=== PATIENT | male | born 1995 | race Caucasian/White ===

== ENCOUNTER 2017-06-08 13:50 | Emergency (ER) | payer OTHER ==
[~2017-06-08] VITALS: Ht 175.3 cm; Wt 78.0 kg
[2017-06-08 13:57] VITALS: BP 147/75; PULSE 88; RESP 20; TEMP 98.4
[2017-06-08] MEDS ORDERED: SODIUM CHLORIDE 0.9% FLUSH 10 ML FLUSH IVF PRN (14:15)
[2017-06-08] MEDS ORDERED: SODIUM CHLOR 0.9% 1000 ML INJ 1,000 ML IV ONE ×2 (14:15→15:30)
--- NOTE | 2017-06-08 14:39 | RADRPT ---
EXAM DATE/TIME: 06/08/2017 14:02 [facility] COMPARISON: No previous studies available for comparison. INDICATIONS : Shortness of breath and dizziness. Possible seizure. MEDICAL HISTORY : None. SURGICAL HISTORY : None. ENCOUNTER: Initial ACUITY: 1 day PAIN SCORE: 0/10 LOCATION: Bilateral chest FINDINGS: Subtle right upper lobe patchy opacities. Cardiomediastinal contours are within normal limits. Bony t horax is intact. CONCLUSION: 1. Subtle right upper lobe patchy opacities which may be projectional. Consider formal PA and lateral views of the chest if there is continued clinical uncertainty. Michael Holloway MD on June 08, 2017 at 14:35 Board Certified Radiologist. This report was verified electronically.
[2017-06-08 15:03] LABS: AUTOMATED NEUTROPHIL # 9.7 TH/MM3 (1.8-7.7); BASOPHIL % 0.1 % (0.0-2.0); EOSINOPHIL % 0.2 % (0.0-4.0); HEMATOCRIT 46.2 % (39.0-51.0); HEMOGLOBIN 15.3 GM/DL (13.0-17.0); LYMPH % 15.7 % (9.0-44.0); MEAN CELL VOLUME 88.1 FL (80.0-100.0); MEAN CORPUSCULAR HEMOGLOBIN 29.2 PG (27.0-34.0); MEAN CORPUSCULAR HGB CONC 33.2 % (32.0-36.0); MEAN PLATELET VOLUME 9.4 FL (7.0-11.0); MONO % 6.8 % (0.0-8.0); MONOCYTE # 0.9 TH/MM3 (0-0.9); NEUT % 77.2 % (16.0-70.0); PLATELET COUNT 260 TH/MM3 (150-450); RED BLOOD COUNT 5.24 MIL/MM3 (4.50-5.90); RED CELL DISTRIBUTION WIDTH 13.7 % (11.6-17.2); WHITE BLOOD COUNT 12.6 TH/MM3 (4.0-11.0)
--- NOTE | 2017-06-08 15:15 | RADRPT ---
EXAM DATE/TIME: 06/08/2017 14:06 [facility] COMPARISON: No previous studies available for comparison. INDICATIONS : Syncope,seizures RADIATION DOSE: 56.35 CTDIvol (mGy) MEDICAL HISTORY : None SURGICAL HISTORY : None. ENCOUNTER: Initial ACUITY: 1 day PAIN SCALE: 3/10 LOCATION: cranial TECHNIQUE: Multiple contiguous axial images were obtained of the head. Using automated exposure control and adj ustment of the mA and/or kV according to patient size, radiation dose was kept as low as reasonably a chievable to obtain optimal diagnostic quality images. DICOM format image data is available electro nically for review and comparison. FINDINGS: CEREBRUM: The ventricles are normal for age. No evidence of midline shift, mass lesion, hemorrhage or acute in farction. No extra-axial fluid collections are seen. POSTERIOR FOSSA: The cerebellum and brainstem are intact. The 4th ventricle is midline. The cerebellopontine angle i s unremarkable. EXTRACRANIAL: The visualized portion of the orbits is intact. SKULL: The calvaria is intact. No evidence of skull fracture. CONCLUSION: Negative noncontrast CT brain. Polo Gooden MD on June 08, 2017 at 15:13 Board Certified Radiologist. This report was verified electronically.
[2017-06-08 15:22] LABS: ALBUMIN 4.2 GM/DL (3.4-5.0); AST (GOT) 23 U/L (15-37); BICARBONATE 19.3 MEQ/L (21.0-32.0); BLOOD UREA NITROGEN 15 MG/DL (7-18); CALCIUM 8.6 MG/DL (8.5-10.1); CHLORIDE 101 MEQ/L (98-107); CREATININE 1.37 MG/DL (0.60-1.30); GLOMERULAR FILTRATION RATE 65 ML/MIN (>89); GLUCOSE,RANDOM 121 MG/DL (74-106); SODIUM (NA) 137 MEQ/L (136-145)
[2017-06-08 15:27] LABS: ALKALINE PHOSPHATASE 84 U/L (45-117); ALT (GPT) 30 U/L (12-78); TOTAL BILIRUBIN ADULT 0.4 MG/DL (0.2-1.0); TROPONIN I LESS THAN 0.02 NG/ML (0.02-0.05)
--- NOTE | 2017-06-08 15:52 | PD ---
HPI Chief Complaint: Syncope/Near-Syncope Time Seen by Provider: 13:56 Travel History International Travel<30 days: No Contact w/Intl Traveler<30days: No Traveled to known affect area: No History of Present Illness HPI PATIENT HAD EPISODE WHERE HE FELL DOWN AND PER WITNESSES HAD TONIC CLONIC TYPE OF ACTIVITY, POST ICTAL PHASE AFTERWARDS...EMS TRANSPORTED [facility] Past Medical History Diminished Hearing: No Neurologic: Yes (PT STATES THAT HE HAS HAD 1 SEIZURE IN PAST) Tetanus Vaccination: Never Vaccinated Influenza Vaccination: No Past Surgical History Surgical History: No Previous Surgery Social History Alcohol Use: Yes (OCCASIONAL) Tobacco Use: No Substance Use: Yes (thc) Allergies-Medications (Allergen,Severity, Reaction): Coded Allergies: No Known Allergies (Unverified , 06/08/17) Reported Meds & Prescriptions Reported Meds & Active Scripts Active No Active Prescriptions or Reported Medications Review of Systems Except as stated in HPI: all other systems reviewed are Neg General / Constitutional: No: Fever Eyes: No: Visual changes HENT: No: Headaches Cardiovascular: Positive: Syncope Respiratory: No: Shortness of Breath Gastrointestinal: No: Abdominal Pain Genitourinary: No: Dysuria Musculoskeletal: No: Pain Skin: Positive Other (ABRASIOIN TO FACE) Neurologic: No: Weakness Psychiatric: No: Depression Endocrine: No: Polydipsia Hematologic/Lymphatic: No: Easy Bruising Physical Exam Narrative GENERAL: SKIN: Warm and dry. HEAD: NO DEPRESSION/CREPITUS PALPATED, NO HEMOTYMPANUN NOTED. PATIENT DID HAVE TONGUE BITE HANKINS AND ABRASION TO CHIN AREA. EYES: Pupils equal and round. No scleral icterus. No injection or drainage. ENT: No nasal bleeding or discharge. Mucous membranes pink and moist. NECK: Trachea midline. No JVD. CARDIOVASCULAR: Regular rate and rhythm. RESPIRATORY: No accessory muscle use. Clear to auscultation. Breath sounds equal bilaterally. GASTROINTESTINAL: Abdomen soft, non-tender, nondistended. MUSCULOSKELETAL: Extremities without clubbing, cyanosis, or edema. No obvious deformities. NEUROLOGICAL: Awake and alert. No obvious cranial nerve deficits. Motor grossly within normal limits. Five out of 5 muscle strength in the arms and legs. Normal speech. PSYCHIATRIC: Appropriate mood and affect; insight and judgment normal. Data Data Last Documented VS Vital Signs Date Time Temp Pulse Resp B/P (MAP) Pulse Ox O2 Delivery O2 Flow Rate FiO2 06/08/17 14:02 Room Air 06/08/17 13:57 98.4 88 20 147/75 (99) Orders Orders Ecg Monitoring (06/08/17 14:01) Electrocardiogram (06/08/17 ) Electrocardiogram (06/08/17 14:01) Complete Blood Count With Diff (06/08/17 14:01) Comprehensive Metabolic Panel (06/08/17 14:01) Troponin I (06/08/17 14:01) Chest, Single Ap (06/08/17 14:01) Ct Brain W/O Iv Contrast(Rout) (06/08/17 14:01) Iv Access Insert/Monitor (06/08/17 14:01) Oximetry (06/08/17 14:01) Sodium Chloride 0.9% Flush (Ns Flush) (06/08/17 14:15) Sodium Chlor 0.9% 1000 Ml Inj (Ns 1000 M (06/08/17 14:15) Sodium Chlor 0.9% 1000 Ml Inj (Ns 1000 M (06/08/17 15:30) Labs Laboratory Tests Test 06/08/17 14:15 White Blood Count 12.6 TH/MM3 Red Blood Count 5.24 MIL/MM3 Hemoglobin 15.3 GM/DL Hematocrit 46.2 % Mean Corpuscular Volume 88.1 FL Mean Corpuscular Hemoglobin 29.2 PG Mean Corpuscular Hemoglobin Concent 33.2 % Red Cell Distribution Width 13.7 % Platelet Count 260 TH/MM3 Mean Platelet Volume 9.4 FL Neutrophils (%) (Auto) 77.2 % Lymphocytes (%) (Auto) 15.7 % Monocytes (%) (Auto) 6.8 % Eosinophils (%) (Auto) 0.2 % Basophils (%) (Auto) 0.1 % Neutrophils # (Auto) 9.7 TH/MM3 Lymphocytes # (Auto) 2.0 TH/MM3 Monocytes # (Auto) 0.9 TH/MM3 Eosinophils # (Auto) 0.0 TH/MM3 Basophils # (Auto) 0.0 TH/MM3 CBC Comment DIFF FINAL Differential Comment Blood Urea Nitrogen 15 MG/DL Creatinine 1.37 MG/DL Random Glucose 121 MG/DL Total Protein 8.0 GM/DL Albumin 4.2 GM/DL Calcium Level 8.6 MG/DL Alkaline Phosphatase 84 U/L Aspartate Amino Transf (AST/SGOT) 23 U/L Alanine Aminotransferase (ALT/SGPT) 30 U/L Total Bilirubin 0.4 MG/DL Sodium Level 137 MEQ/L Potassium Level 3.3 MEQ/L Chloride Level 101 MEQ/L Carbon Dioxide Level 19.3 MEQ/L Anion Gap 17 MEQ/L Estimat Glomerular Filtration Rate 65 ML/MIN Troponin I LESS THAN 0.02 NG/ML MDM Medical Decision Making Medical Screen Exam Complete: Yes Emergency Medical Condition: Yes Medical Record Reviewed: Yes Differential Diagnosis SYNCOPE V SEIZURE V ELECTROLYTE ABNL Narrative Course CT HEAD NEG ICH/SKULL FX, LABS C/W SEIZURE ACTIVITY PARTICULARLY MILDLY DECREASED BICARB LEVEL Diagnosis Primary Impression: S/P SEIZURE (NEW ONSET) Referrals: Shahida Jeter MD FOR FURTHER NEUROLOGICAL EVALUATION Scripts No Active Prescriptions or Reported Meds Disposition: DISCHARGE HOME Condition: Stable Lew Mccray MD Jun 08, 2017 15:51
[2017-06-08 15:56] VITALS: BP 127/72; PULSE 84; RESP 18
--- NOTE | 2017-06-09 14:43 | EKG ---
Date Performed: 06/08/2017 Time Performed: 14:04:54 PTAGE: 21 years EKG: Sinus rhythm POSSIBLE LEFT ATRIAL ENLARGEMENT POSSIBLE RIGHT VENTRICULAR CONDUCTION DELAY POSSIBLE LEFT VENTRICUL AR HYPERTROPHY ABNORMAL ECG NO PREVIOUS TRACING DOCTOR: Saima Luna Interpretating Date/Time 06/09/2017 14:42:52
== END 2017-06-08 17:19 | disposition home or self-care (01) ==
LOC: NEPE 13:50
DX: R56.9 Unspecified convulsions (principal); R55 Syncope and collapse; R94.31 Abnormal electrocardiogram [ECG] [EKG]
CPT/HCPCS: 70450; 71010; 80053; 84484; 85025; 93005; 96360; 96361; 99285; J7030

== ENCOUNTER 2017-06-08 22:09 | Inpatient (IN) | payer OTHER ==
[~2017-06-08] VITALS: Ht 175.3 cm; Wt 69.0 kg
[2017-06-08] VITALS (11 sets, daily range): BP systolic 124–210; BP diastolic 53–120; PULSE 96–128; RESP 18; O2SAT 80–100
[2017-06-08] MEDS: PROPOFOL 1000 MG/100 ML INJ 100 ML IV PRN (22:26)
[2017-06-08] MEDS ORDERED: SODIUM CHLOR 0.9% 1000 ML INJ 1,000 ML IV SCH (22:27)
[2017-06-08] MEDS ORDERED: SODIUM CHLORIDE 0.9% FLUSH 5 ML FLUSH IV FLUSH PRN (22:30)
[2017-06-08] MEDS ORDERED: PROPOFOL 200 MG/20 ML AMP IV ONE ×2 (22:30→23:15)
[2017-06-08] MEDS ORDERED: PROPOFOL 1000 MG/100 ML INJ 100 ML IV PRN (22:30)
[2017-06-08] MEDS ORDERED: ETOMIDATE 20 MG/10 ML VIAL IV PUSH ONE (22:30)
[2017-06-08] MEDS ORDERED: VECURONIUM BROMIDE 10 MG VIAL IV PUSH ONE (22:30)
[2017-06-08] MEDS ORDERED: SUCCINYLCHOLINE CHLORIDE 100 MG/5 ML SYRINGE IV PUSH ONE (22:30)
--- NOTE | 2017-06-08 22:51 | RADRPT ---
EXAM DATE/TIME: 06/08/2017 22:24 [facility] COMPARISON: CHEST SINGLE AP, June 08, 2017, 14:02. INDICATIONS : Post intubation. OG tube placement. MEDICAL HISTORY : Unobtainble. SURGICAL HISTORY : Unobtainble. ENCOUNTER: Initial ACUITY: 1 day PAIN SCORE: Non-responsive. LOCATION: Bilateral chest FINDINGS: Endotracheal tube tip is present about 7 cm above the akira. Nasogastric tube descends into the stom ach. Suprahilar and upper lobe airspace disease is present bilaterally. Cardiac contours are grossly stable area no definite effusion. CONCLUSION: Worsening bilateral upper lung zone infiltrates. ET tube could be advanced slightly. Lonnie Almazan MD on June 08, 2017 at 22:49 Board Certified Radiologist. This report was verified electronically.
[2017-06-08] MEDS ORDERED: MIDAZOLAM HCL 5 MG/ML VIAL (1 ML) ONE ×2 (23:01→23:13)
[2017-06-08 23:06] LABS: AUTOMATED NEUTROPHIL # 13.7 TH/MM3 (1.8-7.7); BASOPHIL % 0.1 % (0.0-2.0); EOSINOPHIL % 0.1 % (0.0-4.0); HEMATOCRIT 42.7 % (39.0-51.0); HEMOGLOBIN 14.4 GM/DL (13.0-17.0); LYMPH % 10.4 % (9.0-44.0); LYMPHOCYTE # 1.7 TH/MM3 (1.0-4.8); MEAN CELL VOLUME 87.7 FL (80.0-100.0); MEAN CORPUSCULAR HEMOGLOBIN 29.5 PG (27.0-34.0); MEAN CORPUSCULAR HGB CONC 33.7 % (32.0-36.0); MEAN PLATELET VOLUME 9.5 FL (7.0-11.0); MONO % 6.2 % (0.0-8.0); NEUT % 83.2 % (16.0-70.0); PLATELET COUNT 236 TH/MM3 (150-450); RED BLOOD COUNT 4.87 MIL/MM3 (4.50-5.90); RED CELL DISTRIBUTION WIDTH 13.4 % (11.6-17.2); WHITE BLOOD COUNT 16.4 TH/MM3 (4.0-11.0)
[2017-06-08] MEDS ORDERED: levETIRAcetam INJ 1,000 MG in SODIUM CHLORIDE 0.9% INJ 100 ML IV ONE (23:15)
[2017-06-08] MEDS ORDERED: MIDAZOLAM HCL 2 MG/2 ML VIAL IV PUSH ONE (23:15)
[2017-06-08 23:17] LABS: PROTHROMBIN TIME - PATIENT 11.3 SEC (9.8-11.6)
--- NOTE | 2017-06-08 23:22 | HHI.HP ---
HPI Service Critical Care Medicine Primary Care Physician Unknown Admission Diagnosis Diagnosis: Travel History International Travel<30 Days: No Contact w/Intl Traveler <30 Da: No Traveled to Known Affected Are: No History of Present Illness 21-year-old presents by EMS from home. Patient was seen in the emergency room a few hours ago for seizure. Apparently does not have history of seizure even though after further conversation with the patient's mother he had episode of seizures a year ago when he was experimenting with alprazolam as a recreational supplement. He had a workup done and was discharged home. Per family when he got home after discharge he was complaining of chest congestion and shortness of breath that was progressively getting worse. His girlfriend who was with him noticed that he had another episode of seizure that lasted for 3 minutes. She called EMS. As per paramedics when they arrived he was confused and postictal. They took him into the ambulance and he started vomiting blood ? . however NG tube placed in the ED didn't reveal any blood or coffee-ground content in the stomach. Patient was slightly tachycardic but blood pressure stable. They said his GCS was 15 on route. When patient arrived to the ER he was confused and GCS was 14. He was hemodynamically stable. His oxygen saturation was 80% on nonrebreather. As per EMS they noticed that his oxygen saturation was in mid 70s on room air when they first put him on a monitor. As I was talking to the paramedics patient started to cough up blood. He was intubated for progressively worsening respiratory distress and hypoxemia by ED attending. Review of Systems ROS Unobtainable patient is sedated and intubated Past Family Social History Allergies: Coded Allergies: No Known Allergies (Unverified , 06/08/17) Past Medical History No significant past medical history 1 episode of seizure a year ago Past Surgical History None Reported Medications Reported Meds & Active Scripts Active No Active Prescriptions or Reported Medications Active Ordered Medications Current Medications Medications (Trade) Dose Ordered Sig/Bebe Route PRN Reason Start Time Stop Time Status Last Admin Dose Admin Piperacillin Sod/ Tazobactam Sod 100 ml @ 200 mls/hr Q6H IV 06/09/17 00:00 06/08/17 23:52 Azithromycin 500 mg/Sodium Chloride 250 ml @ 250 mls/hr Q24H IV 06/09/17 01:00 06/09/17 00:16 Sodium Chloride 1,000 ml @ 125 mls/hr Q8H IV 06/08/17 23:25 Sodium Chloride (NS Flush) 2 ml UNSCH PRN IV FLUSH FLUSH AFTER USING IV ACCESS 06/08/17 23:30 Sodium Chloride (NS Flush) 2 ml BID IV FLUSH 06/09/17 09:00 Acetaminophen (Tylenol) 650 mg Q6H PRN PO PAIN 1-5 AND/OR FEVER >101F 06/08/17 23:30 Morphine Sulfate (Morphine Inj) 2 mg Q2H PRN IV PUSH PAIN SCALE 6 TO 10 06/08/17 23:30 Pantoprazole Sodium (Protonix Inj) 40 mg DAILY IV PUSH 06/09/17 09:00 Lorazepam (Ativan Inj) 1 mg Q1H PRN IV PUSH Agitation/Sedation 06/08/17 23:30 Ondansetron HCl (Zofran Inj) 4 mg Q6H PRN IV PUSH NAUSEA OR VOMITING 06/08/17 23:30 Albuterol/ Ipratropium (Duoneb Neb) 1 ampule Q6HR NEB INH 06/09/17 04:00 Albuterol/ Ipratropium (Duoneb Neb) 1 ampule Q2HR NEB PRN INH WHEEZING 06/08/17 23:30 Miscellaneous Information 1 Q361D XX 06/08/17 23:30 Chlorhexidine Gluconate (Chlorhexidine 2% Cloth) 3 pack Taper DAILY@04 TOP 06/09/17 04:00 06/05/18 03:59 Chlorhexidine Gluconate (Chlorhexidine 2% Cloth) 3 pack UNSCH PRN TOP HYGIENIC CARE 06/08/17 23:30 Senna/Docusate Sodium (Stephanie-Colace) 1 tab BID PO 06/09/17 09:00 Magnesium Hydroxide (Milk Of Magnesia Liq) 30 ml Q12H PRN PO Mild constipation 06/08/17 23:30 Sennosides (Senokot) 17.2 mg Q12H PRN PO Moderate constipation 06/08/17 23:30 Bisacodyl (Dulcolax Supp) 10 mg DAILY PRN RECTAL SEVERE CONSITIPATION 06/08/17 23:30 Lactulose (Lactulose Liq) 30 ml DAILY PRN PO SEVERE CONSITIPATION 06/08/17 23:30 Chlorhexidine Gluconate (Peridex 0.12% Liq) 15 ml BID@08,20 MT 06/09/17 08:00 Propofol 100 ml @ 2.4 mls/hr TITRATE PRN IV SEDATION 06/08/17 23:30 06/08/17 22:26 Midazolam HCl 100 ml @ 2 mls/hr TITRATE PRN IV SEDATION 06/08/17 23:30 Fentanyl Citrate 250 ml @ 5 mls/hr TITRATE PRN IV SEDATION 06/08/17 23:30 Levetriacetam 500 mg/Sodium Chloride 105 ml @ 420 mls/hr Q12HR IV 06/09/17 09:00 Family History No family history significant of seizure disorder Social History Doesn't smoke Drinks alcohol rarely on weekends Smokes marijuana occasionally No history of illicit drug abuse Physical Exam Vital Signs Vital Signs Date Time Temp Pulse Resp B/P (MAP) Pulse Ox O2 Delivery O2 Flow Rate FiO2 06/08/17 22:37 100 Ventilator 100 06/08/17 22:20 100 100 06/08/17 22:17 111 18 167/90 (115) 99 15.00 06/08/17 22:13 108 18 167/90 (115) 80 Physical Exam GENERAL: Well-nourished, well-developed patient. Sedated and intubated. SKIN: Warm and dry. HEAD: Normocephalic. EYES: No scleral icterus. No injection or drainage. NECK: Supple, trachea midline. No JVD or lymphadenopathy. CARDIOVASCULAR: Regular rate and rhythm without murmurs, gallops, or rubs. RESPIRATORY: Breath sounds equal bilaterally. No accessory muscle use. GASTROINTESTINAL: Abdomen soft, non-tender, nondistended. MUSCULOSKELETAL: No cyanosis, or edema. BACK: Nontender without obvious deformity. NEURO EXAM: Mental Status: The patient is sedated and intubated Cranial Nerves: Pupils are round, reactive to light. Reflexes: Biceps, patellar, and Achilles are 2/4 bilaterally. No clonus. Laboratory Laboratory Tests Test 06/08/17 22:40 06/08/17 22:41 06/08/17 22:48 06/08/17 23:10 White Blood Count 16.4 Red Blood Count 4.87 Hemoglobin 14.4 Hematocrit 42.7 Mean Corpuscular Volume 87.7 Mean Corpuscular Hemoglobin 29.5 Mean Corpuscular Hemoglobin Concent 33.7 Red Cell Distribution Width 13.4 Platelet Count 236 Mean Platelet Volume 9.5 Neutrophils (%) (Auto) 83.2 Lymphocytes (%) (Auto) 10.4 Monocytes (%) (Auto) 6.2 Eosinophils (%) (Auto) 0.1 Basophils (%) (Auto) 0.1 Neutrophils # (Auto) 13.7 Lymphocytes # (Auto) 1.7 Monocytes # (Auto) 1.0 Eosinophils # (Auto) 0.0 Basophils # (Auto) 0.0 CBC Comment DIFF FINAL Differential Comment Prothrombin Time 11.3 Prothromb Time International Ratio 1.0 Activated Partial Thromboplast Time 26.6 Ammonia 21 Blood Gas Puncture Site RT RADIAL Blood Gas Patient Temperature 98.6 Blood Gas HCO3 20 Blood Gas Base Excess -4.6 Blood Gas Oxygen Saturation 98 Arterial Blood pH 7.38 Arterial Blood Partial Pressure CO2 35 Arterial Blood Partial Pressure O2 271 Arterial Blood Oxygen Content 20.1 Arterial Blood Carboxyhemoglobin 0.7 Arterial Blood Methemoglobin 0.8 Blood Gas Hemoglobin 14.1 Oxygen Delivery Device VENTILATOR Blood Gas Ventilator Setting VAC/20/550/PEEP+10 Blood Gas Inspired Oxygen 100 Date/Time Source Procedure Growth Status 06/08/17 23:10 Blood Peripheral Aerobic Blood Culture Pending Received 06/08/17 23:10 Blood Peripheral Anaerobic Blood Culture Pending Received Result Diagram: 06/08/170 Imaging Last [address] 06/08/172226 Signed Impressions: Service Date/Time: Thursday, June 08, 2017 23:25 - CONCLUSION: Normal examination. Loki Pitts MD Caprini VTE Risk Assessment Caprini VTE Risk Assessment: No/Low Risk (score <= 1) Caprini Risk Assessment Model Point Value = 1 Point Value = 2 Point Value = 3 Point Value = 5 Age 41-60 Minor surgery BMI > 25 kg/m2 Swollen legs Varicose veins or History of unexplained or recurrent spontaneous Oral contraceptives or hormone replacement Sepsis (< 1 month) Serious lung disease, including pneumonia (< 1 month) Abnormal pulmonary function Acute myocardial infarction Congestive heart failure (< 1 month) History of inflammatory bowel disease Medical patient at bed rest Age 61-74 Arthroscopic surgery Major open surgery (> 45 min) Laparoscopic surgery (> 45 min) Malignancy Confined to bed (> 72 hours) Immobilizing plaster cast Central venous access Age >= 75 History of VTE Family history of VTE Factor V Leiden Prothrombin [id number] Lupus anticoagulant Anticardiolipin antibodies Elevated serum homocysteine Heparin-induced thrombocytopenia Other congenital or acquired thrombophilia Stroke (< 1 month) Elective arthroplasty Hip, pelvis, or leg fracture Acute spinal cord injury (< 1 month) Prophylaxis Regimen Total Risk Factor Score Risk Level Prophylaxis Regimen 0-1 Low Early ambulation 2 Moderate Order ONE of the following: *Sequential Compression Device (SCD) *Heparin 5000 units SQ BID 3-4 Higher Order ONE of the following medications: *Heparin 5000 units SQ TID *Enoxaparin/Lovenox 40 mg SQ daily (WT < 150 kg, CrCl > 30 mL/min) *Enoxaparin/Lovenox 30 mg SQ daily (WT < 150 kg, CrCl > 10-29 mL/min) *Enoxaparin/Lovenox 30 mg SQ BID (WT < 150 kg, CrCl > 30 mL/min) AND/OR *Sequential Compression Device (SCD) 5 or more Highest Order ONE of the following medications: *Heparin 5000 units SQ TID (Preferred with Epidurals) *Enoxaparin/Lovenox 40 mg SQ daily (WT < 150 kg, CrCl > 30 mL/min) *Enoxaparin/Lovenox 30 mg SQ daily (WT < 150 kg, CrCl > 10-29 mL/min) *Enoxaparin/Lovenox 30 mg SQ BID (WT < 150 kg, CrCl > 30 mL/min) AND *Sequential Compression Device (SCD) Assessment and Plan Assessment and Plan Respiratory failure - Noncardiogenic pulmonary edema - Acute lung injury - Supportive care with mechanical ventilation - 2-D echo to rule out cardiogenic origin - Empiric antibiotics - Bronchoscopy and follow-up culture results Seizure disorder - Loaded with Keppra in the ED - Continue Keppra twice a day - EEG Elevated CPK - Post seizure - IV hydration - Monitor trend Acute kidney injury - Dehydration - IV fluids resuscitation - Strict I's and O's - Monitor electrolytes and creatinine DVT GI prophylaxis - Teds SCDs - No pharmacological DVT prophylaxis due to questionable hematemesis versus hemoptysis - Protonix Critical Care: The total critical care time was 35 minutes. Time to perform other separately billable procedures was not included in the critical care time. Roger Haynes MD Jun 08, 2017 23:22
[2017-06-08 23:24] LABS: BILIRUBIN, URINE NEG (NEG); BLOOD, URINE NEG (NEG); GLUCOSE,URINE TRACE mg/dL (NEG); KETONE, URINE 10 mg/dL (NEG); MUCUS URINE FEW /lpf (OCC); NITRITE,URINE NEG (NEG); PH, URINE 5.5 (5.0-8.5); URINE COLOR LIGHT-YELLOW (YELLW/STRAW); URINE LEUKOCYTE ESTERASE NEG (NEG)
[2017-06-08] MEDS ORDERED: MISCELLANEOUS NURSING INFORMATION XX SCH (23:30)
[2017-06-08] MEDS ORDERED: MAGNESIUM HYDROXIDE SUSP 30 ML CUP PO PRN (23:30)
[2017-06-08] MEDS ORDERED: LACTULOSE SYRUP 20 GM/30 ML CUP PO PRN (23:30)
[2017-06-08] MEDS ORDERED: LORazepam 2 MG/ML VIAL IV PUSH PRN (23:30)
[2017-06-08] MEDS ORDERED: BISACODYL 10 MG SUPP RECTAL PRN (23:30)
[2017-06-08] MEDS ORDERED: SENNOSIDES 8.6 MG TAB PO PRN (23:30)
[2017-06-08] MEDS ORDERED: RESP: ALBUTEROL 2.5 MG/IPRATROPIUM 0.5 MG NEB (PRN) INH (23:30)
[2017-06-08] MEDS ORDERED: ACETAMINOPHEN 325 MG TAB PO PRN (23:30)
[2017-06-08] MEDS ORDERED: CHLORHEXIDINE GLUCONATE 2 % 1 PACK (2 CLOTHS) TOP PRN (23:30)
[2017-06-08] MEDS ORDERED: fentaNYL DRIP 250 ML IV PRN (23:30)
[2017-06-08 23:35] LABS: ALBUMIN 3.7 GM/DL (3.4-5.0); ALKALINE PHOSPHATASE 79 U/L (45-117); ALT (GPT) 28 U/L (12-78); AST (GOT) 28 U/L (15-37); BICARBONATE 21.4 MEQ/L (21.0-32.0); BLOOD UREA NITROGEN 12 MG/DL (7-18); CALCIUM 7.7 MG/DL (8.5-10.1); CHLORIDE 106 MEQ/L (98-107); CREATININE 1.26 MG/DL (0.60-1.30); GLOMERULAR FILTRATION RATE 72 ML/MIN (>89); GLUCOSE,RANDOM 97 MG/DL (74-106); SODIUM (NA) 140 MEQ/L (136-145); TOTAL BILIRUBIN ADULT 0.6 MG/DL (0.2-1.0); TROPONIN I LESS THAN 0.02 NG/ML (0.02-0.05)
[2017-06-08 23:38] LABS: LACTIC ACID SEPSIS PROTOCOL 2.5 mmol/L (0.4-2.0)
[2017-06-08 23:39] LABS: ACETAMINOPHEN LESS THAN 2.0 MCG/ML (10.0-30.0)
--- NOTE | 2017-06-08 23:42 | RADRPT ---
EXAM DATE/TIME: 06/08/2017 23:25 [facility] COMPARISON: CT BRAIN W/O CONTRAST, June 08, 2017, 14:06. INDICATIONS : Altered mental status. Seizure. RADIATION DOSE: 48.98 CTDIvol (mGy) MEDICAL HISTORY : Non-responsive. SURGICAL HISTORY : Non-responsive. ENCOUNTER: Initial ACUITY: 1 day PAIN SCALE: Non-responsive LOCATION: cranial TECHNIQUE: Multiple contiguous axial images were obtained of the head. Using automated exposure control and adj ustment of the mA and/or kV according to patient size, radiation dose was kept as low as reasonably a chievable to obtain optimal diagnostic quality images. DICOM format image data is available electro nically for review and comparison. FINDINGS: CEREBRUM: The ventricles are normal for age. No evidence of midline shift, mass lesion, hemorrhage or acute in farction. No extra-axial fluid collections are seen. POSTERIOR FOSSA: The cerebellum and brainstem are intact. The 4th ventricle is midline. The cerebellopontine angle i s unremarkable. EXTRACRANIAL: The visualized portion of the orbits is intact. SKULL: The calvaria is intact. No evidence of skull fracture. CONCLUSION: Normal examination. Loki Pitts MD on June 08, 2017 at 23:38 Board Certified Radiologist. This report was verified electronically.
--- NOTE | 2017-06-08 23:48 | RADRPT ---
EXAM DATE/TIME: 06/08/2017 23:28 [facility] COMPARISON: No previous studies available for comparison. INDICATIONS : Hemoptysis. RADIATION DOSE: 11.77 CTDIvol (mGy) MEDICAL HISTORY : Non-responsive. SURGICAL HISTORY : Non-responsive. ENCOUNTER: Initial ACUITY: 1 day PAIN SCALE: Non-responsive LOCATION: chest TECHNIQUE: Volumetric scanning of the chest was performed. Using automated exposure control and adjustment of t he mA and/or kV according to patient size, radiation dose was kept as low as reasonably achievable to obtain optimal diagnostic quality images. DICOM format image data is available electronically for r eview and comparison. Follow-up recommendations for detected pulmonary nodules are based at a minimum on nodule size and pa tient risk factors according to Fleischner Society Guidelines. FINDINGS: LUNGS: There is extensive groundglass consolidation with interlobular septal thickening more notably within the upper lobes and also within the superior segment of the lower lobes greater on the right. Minimal disease also seen within the inferior lower lobes. Endotracheal tube in good position. PLEURAE: There is no pleural thickening or pleural effusion. MEDIASTINUM: The heart and great vessels demonstrate no acute abnormality. There is no mediastinal or hilar lymph adenopathy. AXILLAE: Within normal limits. No lymphadenopathy. MUSCULOSKELETAL: Within normal limits for patient age. MISCELLANEOUS: The visualized upper abdominal organs demonstrate no acute abnormality. Nasogastric tube with tip in stomach. CONCLUSION: 1. 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 Loki Pitts MD on June 08, 2017 at 23:42 Board Certified Radiologist. This report was verified electronically.
[2017-06-08] MEDS: PIPERACIL-TAZO 4.5 GM PREMIX 100 ML IV SCH (23:52)
[2017-06-09] VITALS (26 sets, daily range): BP systolic 90–145; BP diastolic 44–64; PULSE 74–144; RESP 15–20; TEMP 97.9–100; O2SAT 90–100
--- NOTE | 2017-06-09 00:11 | PD ---
HPI Chief Complaint: Seizure Time Seen by Provider: 22:27 Travel History International Travel<30 days: No Contact w/Intl Traveler<30days: No Traveled to known affect area: No History of Present Illness HPI 21-year-old male came to the emergency room brought by EMS emergently from home. Patient was seen in the emergency room a few hours ago for seizure. Apparently does not have history of seizure. He had a workup done and was discharged home. His girlfriend who was with him noticed that he had another episode of seizure that lasted for 3 minutes. She called EMS. As per paramedics when they arrived he was confused and postictal. They took him into the ambulance and he started vomiting blood. Patient was slightly tachycardic but blood pressure stable. They said his GCS was 15 en route. When patient arrived to the ER he was confused and GCS was 14. He was hemodynamically stable. His oxygen saturation was 80% on nonrebreather. As per EMS they noticed that his oxygen saturation was in mid 70s on room air when they first put him on a monitor. As I was talking to the paramedics patient started to cough up blood. At this point I decided to intubate him given the hypoxia and hemoptysis. [facility] Past Medical History Narrative Medical List of his past medical, surgical, social and family history is reviewed from the nursing note. Diminished Hearing: No Neurologic: Yes (PT STATES THAT HE HAS HAD 1 SEIZURE IN PAST) Social History Alcohol Use: Yes (OCCASIONAL) Tobacco Use: No Substance Use: Yes (thc) Allergies-Medications (Allergen,Severity, Reaction): Coded Allergies: No Known Allergies (Unverified , 06/08/17) Comments No known drug allergies. Reported Meds & Prescriptions Reported Meds & Active Scripts Active No Active Prescriptions or Reported Medications Narrative Medication List of his home medications reviewed from the nursing note. Review of Systems Except as stated in HPI: all other systems reviewed are Neg Respiratory: Positive: Cough, Hemoptysis Neurologic: Positive: Seizures Physical Exam Narrative GENERAL: Awake, confused, significant distress SKIN: Focused skin assessment warm/dry. Pale, multiple petechiae on the left temporal aspect of the scalp HEAD: Atraumatic. Normocephalic. EYES: Pupils equal and round. No scleral icterus. No injection or drainage. ENT: No nasal bleeding or discharge. Mucous membranes pink and moist. NECK: Trachea midline. No JVD. CARDIOVASCULAR: Regular rate and rhythm. No murmur appreciated. RESPIRATORY: Tachypnea, labored respirations, diminished air entry bilaterally with fine crackles GASTROINTESTINAL: Abdomen soft, non-tender, nondistended. Hepatic and splenic margins not palpable. MUSCULOSKELETAL: No obvious deformities. No clubbing. No cyanosis. No edema. NEUROLOGICAL: Awake and alert. No obvious cranial nerve deficits. Motor grossly within normal limits. Normal speech. PSYCHIATRIC: Appropriate mood and affect; insight and judgment normal. Data Data Last Documented VS Orders Orders Chest, Single Ap (06/08/17 ) Electrocardiogram (06/08/17 22:) Ammonia (06/08/17:) Complete Blood Count With Diff (06/08/17:) Comprehensive Metabolic Panel (06/08/17) Creatine Kinase (Cpk) (06/08/17:) Prothrombin Time / Inr (Pt) (06/08/17:) Act Partial Throm Time (Ptt) (06/08/17:) Troponin I (06/08/17:) Thyroid Stimulating Hormone (06/08/17:) Urinalysis - C+S If Indicated (06/08/17 22:) Lactic Acid Sepsis Protocol (06/08/17 22:27) Arterial Blood Gas (Abg) (06/08/17:) Blood Culture (06/08/17:) Ct Brain W/O Iv Contrast(Rout) (06/08/17 22:27) Blood Glucose (06/08/17:27) Ecg Monitoring (06/08/17:) Iv Access Insert/Monitor (06/08/17:) Oximetry (06/08/17:27) Sodium Chloride 0.9% Flush (Ns Flush) (06/08/17 22:30) Sodium Chlor 0.9% 1000 Ml Inj (Ns 1000 M (06/08/17 22:27) Drug Screen, Random Urine (06/08/17 22:27) Salicylates (Aspirin) (06/08/17 22:27) Succinylcholine Inj (Quelicin Inj) (06/08/17 22:30) Etomidate Inj (Amidate Inj) (06/08/17 22:30) Propofol 200 Mg/20 Ml Inj (Diprivan 200 (06/08/17 22:30) Vecuronium 10 Mg Inj (Norcuron 10 Mg Inj (06/08/17 22:30) Propofol 1000 Mg/100 Ml Inj (Diprivan 10 (06/08/17 22:30) ^ Infusion (06/08/17 22:27) RASS (06/08/17 22:27) Neurological Rass Scale SPRING.Q2H (06/08/17 22:27) Samina-Gastric Tube Insert/Mon (06/08/17 22:27) Urinary Catheter Insert/Apply (06/08/17 22:27) Type And Screen (06/08/17 22:27) Tylenol (Acetaminophen) (06/08/17 22:40) Alcohol (Ethanol) (06/08/17 22:40) Midazolam Inj (Versed Inj) (06/08/17 23:01) Midazolam Inj (Versed Inj) (06/08/17 23:15) Propofol 200 Mg/20 Ml Inj (Diprivan 200 (06/08/17 23:15) Levetiracetam Inj (Keppra Inj) (06/08/17 23:15) Ct Thorax/ Chest Wo Iv Contras (06/08/17 ) Midazolam Inj (Versed Inj) (06/08/17 23:13) Piperacil-Tazo 4.5 Gm Premix (Zosyn 4.5 (06/09/17 00:00) Azithromycin Inj (Zithromax Inj) (06/09/17 01:00) Admit To Inpatient (06/08/17 ) Code Status (06/08/17 23:25) Vital Signs (Adult) SPRING.Q1H (06/08/17 23:25) Elevate Head Of Bed (06/08/17 23:25) Neuro Checks . ORDERED (06/08/17 23:25) Intake + Output Q1H (06/08/17 23:25) Diet Npo (06/09/17 Breakfast) Sodium Chlor 0.9% 1000 Ml Inj (Ns 1000 M (06/08/17 23:25) Sodium Chloride 0.9% Flush (Ns Flush) (06/08/17 23:30) Sodium Chloride 0.9% Flush (Ns Flush) (06/09/17 09:00) Acetaminophen (Tylenol) (06/08/17 23:30) Morphine Inj (Morphine Inj) (06/08/17 23:30) Pantoprazole Inj (Protonix Inj) (06/09/17 09:00) Lorazepam Inj (Ativan Inj) (06/08/17 23:30) Ondansetron Inj (Zofran Inj) (06/08/17 23:30) Albuterol-Ipratropium Neb (Duoneb Neb) (06/09/17 04:00) Albuterol-Ipratropium Neb (Duoneb Neb) (06/08/17 23:30) Complete Blood Count With Diff (06/09/17 04:00) Basic Metabolic Panel (Bmp) (06/09/17 04:00) Comprehensive Metabolic Panel (06/09/17 04:00) Creatine Kinase (Cpk) (06/08/17 23:25) Act Partial Throm Time (Ptt) (06/09/17 04:00) Prothrombin Time / Inr (Pt) (06/09/17 04:00) Magnesium (Mg) (06/09/17 04:00) Phosphorus (Po4) (06/09/17 04:00) Lactic Acid (06/09/17 04:00) Sputum Culture And Gram Stain (06/08/17:) Urine Culture (06/08/17 23:25) Portable Eeg (06/08/17 ) Pt Request For Service (06/08/17 23:25) Senior Sql Database Developer / Telemetry SPRING.Q8H (06/08/17 23:25) Scd Bilateral/Knee High SPRING.BID (06/08/17 23:25) Josiah Bilateral/Knee High SPRING.QSHIFT (06/08/17 23:25) Pharmacologic Contraindication (06/08/17 23:25) ^ Initiate Protocol (06/08/17:25) Instruction (06/08/17:25) Misc Nursing Information (06/08/17 23:30) Chlorhexidine 2% Cloth (Chlorhexidine 2% (06/09/17 04:00) Chlorhexidine 2% Cloth (Chlorhexidine 2% (06/08/17 23:30) Mrsa Pcr Surveillance (06/08/17 23:25) Docusate Sodium-Senna (Stephanie-Colace) (06/09/17 09:00) Magnesium Hydroxide Liq (Milk Of Magnesi (06/08/17 23:30) Sennosides (Senokot) (06/08/17 23:30) Bisacodyl Supp (Dulcolax Supp) (06/08/17 23:30) Lactulose Liq (Lactulose Liq) (06/08/17 23:30) Elevate Head Of Bed (06/08/17 23:25) Chlorhexidine 0.12% Liq (Peridex 0.12% L (06/09/17 08:00) Restraints Non-Violent SPRING.Q3H (06/08/17 23:25) Ventilator Weaning Readiness SPRING.DAILY@0800 (06/08/17 23:25) Propofol 1000 Mg/100 Ml Inj (Diprivan 10 (06/08/17 23:30) Neurological Rass Scale Q30MX2,Q2HX4,Q4H (06/08/17 23:25) Midazolam 100 Mg/100 Ml Inj (Versed Inj) (06/08/17 23:30) Neurological Rass Scale Q30MX2,Q2HX4,Q4H (06/08/17 23:25) Neurological Rass Scale Q30MX2,Q2HX4,Q4H (06/08/17 23:25) Fentanyl Drip (Fentanyl Drip) (06/08/17 23:30) Inpatient Certification (06/08/17 ) Levetiracetam Inj (Keppra Inj) (06/09/17 09:00) Admit Order (Ed Use Only) (06/08/17 23:34) CKMB (06/08/17 22:40) CKMB% (06/08/17 22:40) CKMB (06/09/17 07:57) CKMB% (06/09/17 07:57) Labs Laboratory Tests Test 06/08/17 22:40 06/08/17 22:41 06/08/17 22:48 06/08/17 23:10 White Blood Count 16.4 TH/MM3 Red Blood Count 4.87 MIL/MM3 Hemoglobin 14.4 GM/DL Hematocrit 42.7 % Mean Corpuscular Volume 87.7 FL Mean Corpuscular Hemoglobin 29.5 PG Mean Corpuscular Hemoglobin Concent 33.7 % Red Cell Distribution Width 13.4 % Platelet Count 236 TH/MM3 Mean Platelet Volume 9.5 FL Neutrophils (%) (Auto) 83.2 % Lymphocytes (%) (Auto) 10.4 % Monocytes (%) (Auto) 6.2 % Eosinophils (%) (Auto) 0.1 % Basophils (%) (Auto) 0.1 % Neutrophils # (Auto) 13.7 TH/MM3 Lymphocytes # (Auto) 1.7 TH/MM3 Monocytes # (Auto) 1.0 TH/MM3 Eosinophils # (Auto) 0.0 TH/MM3 Basophils # (Auto) 0.0 TH/MM3 CBC Comment DIFF FINAL Differential Comment Prothrombin Time 11.3 SEC Prothromb Time International Ratio 1.0 RATIO Activated Partial Thromboplast Time 26.6 SEC Blood Urea Nitrogen 12 MG/DL Creatinine 1.26 MG/DL Random Glucose 97 MG/DL Total Protein 7.0 GM/DL Albumin 3.7 GM/DL Calcium Level 7.7 MG/DL Alkaline Phosphatase 79 U/L Aspartate Amino Transf (AST/SGOT) 28 U/L Alanine Aminotransferase (ALT/SGPT) 28 U/L Total Bilirubin 0.6 MG/DL Sodium Level 140 MEQ/L Potassium Level 3.6 MEQ/L Chloride Level 106 MEQ/L Carbon Dioxide Level 21.4 MEQ/L Anion Gap 13 MEQ/L Estimat Glomerular Filtration Rate 72 ML/MIN Ammonia 21 MCMOL/L Total Creatine Kinase 843 U/L Creatine Kinase MB 3.1 NG/ML Creatine Kinase MB % 0.4 % Troponin I LESS THAN 0.02 NG/ML Thyroid Stimulating Hormone 3rd Gen 1.020 uIU/ML Salicylates Level LESS THAN 1.7 MG/DL Acetaminophen Level LESS THAN 2.0 MCG/ML Ethyl Alcohol Level LESS THAN 3 MG/DL Urine Color LIGHT-YELLOW Urine Turbidity CLEAR Urine pH 5.5 Urine Specific Dumont 1.016 Urine Protein TRACE mg/dL Urine Glucose (UA) TRACE mg/dL Urine Ketones 10 mg/dL Urine Occult Blood NEG Urine Nitrite NEG Urine Bilirubin NEG Urine Urobilinogen LESS THAN 2.0 MG/DL Urine Leukocyte Esterase NEG Urine RBC LESS THAN 1 /hpf Urine WBC 1 /hpf Urine Mucus FEW /lpf Microscopic Urinalysis Comment CATH-CULT NOT IND Urine Opiates Screen NEG Urine Barbiturates Screen NEG Urine Amphetamines Screen NEG Urine Benzodiazepines Screen NEG Urine Cocaine Screen NEG Urine Cannabinoids Screen POS Blood Gas Puncture Site RT RADIAL Blood Gas Patient Temperature 98.6 Blood Gas HCO3 20 mmol/L Blood Gas Base Excess -4.6 mmol/L Blood Gas Oxygen Saturation 98 % Arterial Blood pH 7.38 Arterial Blood Partial Pressure CO2 35 mmHg Arterial Blood Partial Pressure O2 271 mmHG Arterial Blood Oxygen Content 20.1 Vol % Arterial Blood Carboxyhemoglobin 0.7 % Arterial Blood Methemoglobin 0.8 % Blood Gas Hemoglobin 14.1 G/DL Oxygen Delivery Device VENTILATOR Blood Gas Ventilator Setting VAC/20/550/PEEP+10 Blood Gas Inspired Oxygen 100 % Lactic Acid Level 2.5 mmol/L MDM Medical Decision Making Medical Screen Exam Complete: Yes Emergency Medical Condition: Yes Medical Record Reviewed: Yes Interpretation(s) Twelve-lead EKG was reviewed by me. Normal sinus rhythm, normal axis, nonspecific ST-T wave changes. Heart rate of 78 bpm. Differential Diagnosis Pulmonary hemorrhage, pulmonary edema, pneumonia, aspiration pneumonia Narrative Course 12 AM patient initially was intubated by me. Please refer to my procedure note. Off note during intubation significant amount of pink frothy sputum was noticed to be coming from the glottis. Once patient was intubated and the respiratory therapist suctioned at least 100 ML of bloody secretion came out. Patient was put on high PEEP ventilator setting by me. Sedation was given but patient continued to fight the ventilator. Chest x-ray shows diffuse bilateral upper to third intensity which looks like pulmonary edema. His parents came in and I just spoke with them. 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 He does not have any other history of substance abuse. As per the mother he is a good kid. He has a parakeet as a pet at home. 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 No family history of epilepsy or seizure disorder. He is otherwise a healthy adult. I discussed the case with the control systems eng Dr. Haynes who is admitting the patient and plans to do a bronchoscopy. In my opinion patient is in a noncardiogenic pulmonary edema or ARDS. Given the fact that he has a parakeet at home the other possibilities are psittacosis or Legionella pneumonia. I have ordered Legionella antigen from urine. Patient is any critical condition. Critical Care Narrative Aggregate critical care time was 75 minutes. Time to perform other separately billable procedures was not included in the critical care time. My time did not include minutes spent treating any other patients simultaneously or on activities that did not directly contribute to the patient's treatment. The services I provided to this patient were to treat and/or prevent clinically significant deterioration that could result in: Respiratory failure, hemoptysis, noncardiogenic pulmonary edema, ventilator management I provided critical care services requiring my management, as noted below: Chart data review, documentation time, medication orders and management, vital sign assessments/reviewing monitor data, ordering and reviewing lab tests, ordering and interpreting/reviewing x-rays and diagnostic studies, care of the patient and discussion of the patient with the admitting physicians. Procedures Procedure Narrative After the risks and benefits were discussed the following procedure was performed: INTUBATION: The patient was put in optimal position for the procedure. Rapid sequence intubation was initiated by me using 20 milligrams of etomidate IV and 100 milligrams of succinylcholine IV. The patient was intubated with a 7.5 cuffed endotracheal tube. Tube placement was confirmed by visualization of the tube and balloon passing through the cords, capnometry and subsequent chest x-ray. Breath sounds were equal and well aerated bilaterally postintubation. No breath sounds over stomach. Patient tolerated procedure well. EKG Prior to Arrival: No Physician Communication Physician Communication Dr. Haynes Diagnosis Primary Impression: Hemoptysis Additional Impressions: Non-cardiogenic pulmonary edema Respiratory failure Qualified Codes: J96.01 - Acute respiratory failure with hypoxia ARDS (adult respiratory distress syndrome) Admitting Information Admitting Physician Requests: Admit Scripts No Active Prescriptions or Reported Meds Lucie Nicole MD Jun 09, 2017 00:11
[2017-06-09] MEDS: AZITHROMYCIN INJ 500 MG in SODIUM CHLOR 0.9% 250 ML INJ 250 ML IV SCH (00:16)
[2017-06-09] MEDS ORDERED: MIDAZOLAM 100 MG/100 ML INJ 100 ML ONE (00:43)
[2017-06-09] MEDS ORDERED: fentaNYL DRIP 250 ML ONE (00:45)
[2017-06-09] MEDS: MIDAZOLAM 100 MG/100 ML INJ 100 ML IV PRN ×2 (01:32→06:53)
[2017-06-09] MEDS: CHLORHEXIDINE GLUCONATE 2 % 1 PACK (2 CLOTHS) TOP SCH (02:00)
[2017-06-09] MEDS: PROPOFOL 1000 MG/100 ML INJ 100 ML IV PRN ×2 (02:00→06:51)
[2017-06-09] MEDS ORDERED: DOPamine INJ PREMIX 500 ML IV PRN (02:45)
[2017-06-09] MEDS ORDERED: TERBUTALINE INJ 1 MG/ML AMP SQ PRN (02:45)
[2017-06-09] MEDS: RESP: ALBUTEROL 2.5 MG/IPRATROPIUM 0.5 MG NEB (SCH) INH ×4 (03:09→20:30)
--- NOTE | 2017-06-09 03:56 | RADRPT ---
EXAM DATE/TIME: 06/09/2017 02:51 [facility] COMPARISON: CHEST SINGLE AP, June 08, 2017, 22:24. INDICATIONS : ARDS, post bronchoscopy and right subclavian central line placement. MEDICAL HISTORY : None. SURGICAL HISTORY : None. ENCOUNTER: Subsequent ACUITY: 2 days PAIN SCORE: Non-responsive. LOCATION: Bilateral chest FINDINGS: A single view of the chest demonstrates bilateral upper lobe consolidation. Endotracheal tube removed . Nasogastric tube tip in stomach. Right subclavian central line with tip in the cavoatrial junction. The cardiomediastinal contours are unremarkable. Osseous structures are intact. CONCLUSION: Bilateral upper lobe consolidation. Loki Pitts MD on June 09, 2017 at 3:54 Board Certified Radiologist. This report was verified electronically.
[2017-06-09] MEDS: PIPERACIL-TAZO 4.5 GM PREMIX 100 ML IV SCH ×4 (06:00→23:22)
[2017-06-09] MEDS: SODIUM CHLOR 0.9% 1000 ML INJ 1,000 ML IV SCH ×3 (06:44→23:22)
[2017-06-09] MEDS: DOCUSATE SODIUM 50 MG/SENNA 8.6 MG TAB PO SCH ×2 (08:04→23:23)
[2017-06-09] MEDS: PANTOPRAZOLE SODIUM 40 MG VIAL IV PUSH SCH (08:05)
[2017-06-09] MEDS: SODIUM CHLORIDE 0.9% FLUSH 10 ML FLUSH IV FLUSH SCH ×2 (08:12→21:00)
[2017-06-09] MEDS: levETIRAcetam INJ 500 MG in SODIUM CHLORIDE 0.9% INJ 100 ML IV SCH ×2 (08:13→23:22)
[2017-06-09 09:24] LABS: AUTOMATED NEUTROPHIL # 11.9 TH/MM3 (1.8-7.7); BASOPHIL # 0.1 TH/MM3 (0-0.2); BASOPHIL % 0.3 % (0.0-2.0); EOSINOPHIL # 0.1 TH/MM3 (0-0.4); EOSINOPHIL % 0.8 % (0.0-4.0); HEMOGLOBIN 13.4 GM/DL (13.0-17.0); LYMPH % 15.9 % (9.0-44.0); LYMPHOCYTE # 2.5 TH/MM3 (1.0-4.8); MEAN CORPUSCULAR HEMOGLOBIN 29.5 PG (27.0-34.0); MEAN CORPUSCULAR HGB CONC 33.5 % (32.0-36.0); MEAN PLATELET VOLUME 9.1 FL (7.0-11.0); MONO % 7.8 % (0.0-8.0); MONOCYTE # 1.2 TH/MM3 (0-0.9); NEUT % 75.2 % (16.0-70.0); PLATELET COUNT 196 TH/MM3 (150-450); RED BLOOD COUNT 4.54 MIL/MM3 (4.50-5.90); RED CELL DISTRIBUTION WIDTH 13.6 % (11.6-17.2); WHITE BLOOD COUNT 15.9 TH/MM3 (4.0-11.0)
[2017-06-09 09:29] LABS: INTERNATIONAL NORMALIZED RATIO 1.1 RATIO; PROTHROMBIN TIME - PATIENT 11.7 SEC (9.8-11.6)
[2017-06-09 09:35] LABS: ALBUMIN 3.3 GM/DL (3.4-5.0); AST (GOT) 34 U/L (15-37); BICARBONATE 22.7 MEQ/L (21.0-32.0); BLOOD UREA NITROGEN 10 MG/DL (7-18); CALCIUM 8.4 MG/DL (8.5-10.1); CHLORIDE 110 MEQ/L (98-107); GLOMERULAR FILTRATION RATE 93 ML/MIN (>89); GLUCOSE,RANDOM 77 MG/DL (74-106); SODIUM (NA) 141 MEQ/L (136-145)
[2017-06-09 09:48] LABS: ALKALINE PHOSPHATASE 60 U/L (45-117); ALT (GPT) 25 U/L (12-78); PHOSPHORUS 2.5 MG/DL (2.5-4.9); TOTAL PROTEIN 6.1 GM/DL (6.4-8.2)
--- NOTE | 2017-06-09 13:14 | HHI.CCPN ---
Subjective Remarks/Hospital Course 21-year-old presents by EMS from home. Patient was seen in the emergency room a few hours ago for seizure. Apparently does not have history of seizure even though after further conversation with the patient's mother he had episode of seizures a year ago when he was experimenting with alprazolam as a recreational supplement. He had a workup done and was discharged home. Per family when he got home after discharge he was complaining of chest congestion and shortness of breath that was progressively getting worse. His girlfriend who was with him noticed that he had another episode of seizure that lasted for 3 minutes. She called EMS. As per paramedics when they arrived he was confused and postictal. They took him into the ambulance and he started vomiting blood ? . however NG tube placed in the ED didn't reveal any blood or coffee-ground content in the stomach. Patient was slightly tachycardic but blood pressure stable. They said his GCS was 15 on route. When patient arrived to the ER he was confused and GCS was 14. He was hemodynamically stable. His oxygen saturation was 80% on nonrebreather. As per EMS they noticed that his oxygen saturation was in mid 70s on room air when they first put him on a monitor. As I was talking to the paramedics patient started to cough up blood. He was intubated for progressively worsening respiratory distress and hypoxemia by ED attending. Subjective 06/09: Remains on multiple sedation medications and dopamine. CT brain no acute findings. MRI brain ordered. EEG showed medication induced encephalopathy. Objective Vital Signs Date Time Temp Pulse Resp B/P (MAP) Pulse Ox O2 Delivery O2 Flow Rate FiO2 06/09/17 11:17 99 35 06/09/17 10:00 80 06/09/17 08:00 99.5 20 113/54 (73) 06/09/17 01:04 Ventilator 06/08/17 22:17 15.00 Intake and Output 06/09/17 06/09/17 06/10/17 08:00 16:00 00:00 Intake Total 250 ml 200 ml Output Total 2000 ml Balance -1750 ml 200 ml Result Diagram: 06/09/17 0757 06/09/17 0757 Other Results Microbiology Date/Time Source Procedure Growth Status 06/08/17 23:10 Blood Peripheral Aerobic Blood Culture - Preliminary NO GROWTH IN 1 DAY Resulted 06/08/17 23:10 Blood Peripheral Anaerobic Blood Culture - Preliminary NO GROWTH IN 1 DAY Resulted 06/09/17 01:30 Sputum Endotracheal Gram Stain - Final Resulted 06/09/17 01:30 Sputum Endotracheal Sputum Culture Pending Resulted 06/08/17 22:41 Urine Catheterized Urine Legionella Antigen - Final PRESUMPTIVE NEGATIVE FOR LEGIONELLA P... Complete Imaging Last Impressions Chest X-Ray 06/09/17 0000 Signed Impressions: Service Date/Time: May 02:51 - CONCLUSION: Bilateral upper lobe consolidation. Loki Pitts MD Head CT 06/08/177 Signed Impressions: Service Date/Time: Thursday, June 08, 2017 23:25 - CONCLUSION: Normal examination. Loki Pitts MD Chest CT 06/08/17 0000 Signed Impressions: Service Date/Time: Thursday, June 08, 2017 23:28 - CONCLUSION: 1. 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 Loki Pitts MD Objective Remarks GENERAL: 21-year-old male, Well-nourished, well-developed patient. Sedated and intubated. SKIN: Warm and dry. HEAD: Normocephalic. EYES: No scleral icterus. No injection or drainage. NECK: Supple, trachea midline. No JVD or lymphadenopathy. CARDIOVASCULAR: Regular rate and rhythm without murmurs, gallops, or rubs. RESPIRATORY: Breath sounds equal bilaterally. No accessory muscle use. GASTROINTESTINAL: Abdomen soft, non-tender, nondistended. MUSCULOSKELETAL: No significant peripheral edema BACK: Nontender without obvious deformity. NEURO EXAM: Mental Status: The patient is sedated and intubated Cranial Nerves: Pupils are round, reactive to light. Reflexes: Biceps, patellar, and Achilles are 2/4 bilaterally. No clonus. Vascular Central Line Catheter: Yes Assessment to: Continue Date of Insertion: Jun 09, 2017 Line: Central Venous Catheter Side: Right Location: Subclavian A/P Assessment and Plan Neuro/Psych: Seizure NOS THC use Patient is currently on propofol at 30 mcg/kg per minute, midazolam @ 10 mg an hour and fentanyl at 100 g an hour for sedation/analgesia while intubated Levetiracetam 500 mg IV twice a day EEG completed 06/09. Results pending. Preliminary metabolic encephalopathy likely secondary to sedation. CT brain revealed no acute intracranial findings MRI brain/lumbar puncture currently pending Neurology consultation CV: Hypotension likely medication induced Lactic acidosis resolved Elevated CPK Currently dopamine at 8 mcg/kg per minute to maintain mean arterial pressure and 65 Currently normal saline in the 125 cc an hour Lactate is clear. Repeat CPK In a.m. 2-D echocardiogram ordered Resp: Acute respiratory failure Noncardiogenic pulmonary edema? Hemoptysis? ACV 18/550/35 Albuterol/ipratropium aerosols every 6 hours with albuterol aerosols every 2 hours. Dyspnea Ventilator bundle Spontaneous breathing trials CT thorax revealed crazy wavy pattern PAP, AIP, ARDS included in differential Chest x-ray this a.m. revealed bilateral upper lobe infiltrates. GI: Patient is currently nothing by mouth NGT to LIWS. Start tube feeding if not extubated Pantoprazole for GI prophylaxis Docusate sodium/Senokot 1 tablet twice a day for bowel regimen : Hernandez catheter if indicated for accurate I's and O's in a critically ill patient Endo: Sliding-scale insulin if indicated Renal: Acute kidney injury resolved Creatinine currently within normal limits Monitor urine output Accurate I's and O's Heme: Leukocytosis Monitor CBC daily. Follow trends ID: Pneumonia Blood cultures 2 pending Currently on piperacillin/tazobactam and/azithromycin day #2 FEN: Replace electrolytes as clinically indicated MSK: PT evaluate and treat Critical Care: The total critical care time was 35 minutes. Time to perform other separately billable procedures was not included in the critical care time. Rex Vegas MD Jun 09, 2017 13:13
[2017-06-09] MEDS ORDERED: RESP: ALBUTEROL 2.5 MG/3 ML NEB (PRN) NEB (13:15)
--- NOTE | 2017-06-09 14:40 | EKG ---
Date Performed: 06/09/2017 Time Performed: 00:23:25 PTAGE: 21 years EKG: Sinus rhythm NORMAL ECG Compared to PREVIOUS TRACING there has been an overall reduction in voltage and the tracing no longe r suggests possible left ventricular hypertrophy. The patient is now within normal limits. PREVIOUS T RACIN06/08/2017 14.04 DOCTOR: Saima Luna Interpretating Date/Time 06/09/2017 14:39:59
[2017-06-09 14:54] LABS: AUTOMATED NEUTROPHIL # 8.2 TH/MM3 (1.8-7.7); BASOPHIL # 0.1 TH/MM3 (0-0.2); BASOPHIL % 0.7 % (0.0-2.0); EOSINOPHIL # 0.2 TH/MM3 (0-0.4); EOSINOPHIL % 1.7 % (0.0-4.0); HEMOGLOBIN 12.5 GM/DL (13.0-17.0); LYMPH % 17.3 % (9.0-44.0); LYMPHOCYTE # 1.9 TH/MM3 (1.0-4.8); MEAN CELL VOLUME 86.8 FL (80.0-100.0); MEAN CORPUSCULAR HEMOGLOBIN 28.5 PG (27.0-34.0); MEAN CORPUSCULAR HGB CONC 32.9 % (32.0-36.0); MEAN PLATELET VOLUME 8.5 FL (7.0-11.0); MONO % 6.6 % (0.0-8.0); MONOCYTE # 0.7 TH/MM3 (0-0.9); NEUT % 73.7 % (16.0-70.0); PLATELET COUNT 198 TH/MM3 (150-450); RED BLOOD COUNT 4.39 MIL/MM3 (4.50-5.90); RED CELL DISTRIBUTION WIDTH 13.6 % (11.6-17.2); WHITE BLOOD COUNT 11.1 TH/MM3 (4.0-11.0)
[2017-06-09 15:09] LABS: INTERNATIONAL NORMALIZED RATIO 1.1 RATIO; PROTHROMBIN TIME - PATIENT 12.2 SEC (9.8-11.6)
[2017-06-09 15:21] LABS: BICARBONATE 24.6 MEQ/L (21.0-32.0); CALCIUM 7.7 MG/DL (8.5-10.1); CREATININE 0.93 MG/DL (0.60-1.30)
[2017-06-09] MEDS ORDERED: POTASSIUM PHOSPHATE MONOBASIC 500 MG TAB PO PRN (16:00)
[2017-06-09] MEDS ORDERED: POTASSIUM CHLOR 40 MEQ PREMIX 100 ML IV PRN ×2 (16:00)
[2017-06-09] MEDS ORDERED: ROCURONIUM INJ 50 MG/5 ML VIAL ONE (16:00)
[2017-06-09] MEDS ORDERED: POTASSIUM PHOSPHATE MONOBASIC 500 MG TAB PO/TUBE PRN (16:00)
[2017-06-09] MEDS ORDERED: SODIUM PHOSPHATE INJ 30 MMOL in SODIUM CHLOR 0.9% 250 ML INJ 240 ML IV PRN (16:00)
[2017-06-09] MEDS ORDERED: MAGNESIUM SULFATE INJ 2 GM in SODIUM CHLORIDE 0.9% INJ 96 ML IV PRN (16:00)
[2017-06-09] MEDS ORDERED: POTASSIUM CHLOR 20 MEQ PREMIX 100 ML IV PRN ×2 (16:00)
[2017-06-09] MEDS ORDERED: POTASSIUM CHLORIDE 25 MEQ EFFERVESCENT TAB PO PRN (16:00)
[2017-06-09] MEDS ORDERED: MAGNESIUM SULFATE INJ 4 GM in SODIUM CHLORIDE 0.9% INJ 92 ML IV PRN (16:00)
[2017-06-09] MEDS ORDERED: ROCURONIUM INJ 50 MG/5 ML VIAL IV ONE (16:00)
[2017-06-09] MEDS ORDERED: MAGNESIUM OXIDE 400 MG TAB PO PRN (16:00)
--- NOTE | 2017-06-09 16:13 | MG ---
cc: NASIM JAIMES M.D. Lab No: [id number] Date: 06/09/2017 Age: 21 Sex: M Race: DATE OF : [address] Haynes. In room 552, intubated on Diprivan between 25-30 mcg, Versed at 10 mg, fentanyl 100 mcg. Photic stimulation only done. Sits up in bed when stimulated. He already sat up 4 or 5 times during the hookup of the EEG. CT is normal. He is admitted for 3 minute seizure, confusion and postictal. He is on a non-rebreather. History of seizure, alcohol, substance use THC. MEDICATION Azithromycin, piperacillin, Diprivan, Versed, fentanyl. DESCRIPTION OF RECORD There is at times some faster frequency beta waves. Overall, interspersed was normal alpha rhythm. There is quite a bit of artifact from myogenic causes seen. The patient is uncooperative but overall the background seems fairly intact with no epileptic activity. Photic stimulation shows bilateral driving response. OVERALL IMPRESSION At times abnormal due to beta waves, may be due to medicine effect but there are normal alpha waves seen. No epileptiform features seen. Clinical correlation. MD MASHA Canales/SONIA /3:38 PM /3:58 PM
--- NOTE | 2017-06-09 16:29 | PD.RAD ---
Post Procedure Progress Note Pre Procedure Diagnosis: (1) Seizure Post Procedure Diagnosis: (1) Seizure Procedure Date: Jun 09, 2017 Supervising Radiologist: Ang Wray Estimated blood loss: None Anesthesia: Local Plan of Activity Patient to Unit: Critical Care Patient Condition: Poor Additional Comments: Lp completed without difficulty. 20cc of clear csf obtained. See PACS Report for procedural detail/treatment Ang Wray MD Jun 09, 2017 16:29
--- NOTE | 2017-06-09 16:52 | RADRPT ---
EXAM DATE/TIME: 06/09/2017 15:34 [facility] COMPARISON: No previous studies available for comparison. INDICATIONS : Patient with a history of seizures, attempted lumbar puncture. MEDICAL HISTORY : Seizure SURGICAL HISTORY : None ENCOUNTER: Initial ACUITY: 1 day PAIN SCORE: 0/10 FLUORO TIME: 0.4 minutes IMAGE SERIES: 2 PROCEDURE : 1. Fluoroscopic guided lumbar puncture. 2. Recording of opening pressure. The risks, benefits and alternatives to the procedure were explained and verbal and written consent w as obtained. The site was prepped in sterile fashion. Full sterile technique was used, including ca p, mask, sterile gloves and gown and a large sterile sheet. Hand hygiene and 2% chlorhexidine and/or betadine/alcohol prep was utilized per protocol for cutaneous antisepsis. The skin and subcutaneous tissues were infiltrated with local anesthetic solution. With fluoroscopic guidance the lumbar thecal sac was punctured at the L3/4 level. Opening pressure wa s 14 CM/H2O. The CSF was clear. 20 cc was obtained. The patient tolerated the procedure well and there were no complications. CONCLUSION: Uncomplicated fluoroscopically guided lumbar puncture with pressures as above. Ang Wray MD on June 09, 2017 at 16:47 Board Certified Radiologist. This report was verified electronically.
--- NOTE | 2017-06-09 17:29 | MB ---
cc: MEREDITH NATHAN MD DATE OF CONSULTATION 06/09/17 REASON FOR CONSULTATION Altered mental status. HISTORY OF PRESENT ILLNESS Mr. Rowland is a 21-year-old male who was intubated and sedated, thus , medical history is obtained from medical records and medical staff. He presented from home to the [facility] emergency room a few hours after he sustained a seizure. According to the family, this is his second seizure. He had a seizure 18 months ago, when he was experimenting with recreational medication/Xanax. He had a workup done and was discharged home on no anti-seizure medication. At this time, he was noted to have a seizure that lasted three minutes. As per the paramedics, the patient was confused and in a postictal confusional state. There was a mention of questionable vomiting blood. NG tube did not show any blood. The patient desaturated and needed intubation. Thus, he was intubated and sedated in the intensive care unit. REVIEW OF SYSTEMS Unable to obtain. PAST MEDICAL HISTORY One seizure 18 months ago related to drug/Xanax reaction PAST SURGICAL HISTORY None MEDICATIONS None. ALLERGIES No known allergies. FAMILY HISTORY No family history of epilepsy. SOCIAL HISTORY Does not smoke, drinks alcohol rarely. marijuana occasionally. PHYSICAL EXAMINATION GENERAL: Well-developed, intubated and sedated. HEENT: Atraumatic, normocephalic. NECK: No signs of meningeal irritation. CARDIOVASCULAR: Regular rate and rhythm. RESPIRATORY: Clear to auscultation. No wheezes. MUSCULOSKELETAL: No cyanosis or edema. NEUROLOGIC: Intubated, sedated. Reactive pupils. LABORATORY DATA White blood cells initially at 16.4 yesterday. Today is 11.1, hemoglobin 12.5, platelet count 198, INR 1.1. Sodium 141, potassium 3.7, lactic acid 2.5, calcium 8.4, CK 1942. UDS - salicylate less than 1.7, low salicylate level positive for cannabinoids. IMAGING STUDIES - Head CT scan without contrast was normal. IMPRESSION 1. New onset seizure. 2. Questionable history of provoked seizure related to drugs/Xanax. 3. Acute kidney injury and elevated CPK. RECOMMENDATIONS In light of the mild elevation in the white blood cells and the new onset seizure, the following is recommended - Neuro checks q. one hourly - Lumbar puncture for viral, bacterial study and chemistry,cytology. - MRI brain. - Electroencephalogram - Seizure precautions. - Continue supportive medical therapy. - DVT prophylaxis SCDs. - GI prophylaxis. Thank you for the opportunity to participate in the care of your patient. MD MORENITA Bradshaw/ /3:28 PM /5:04 PM [facility]
[2017-06-09 17:35] LABS: TOTAL PROTEIN,CSF 30.8 MG/DL (15.0-45.0)
[2017-06-09 18:23] LABS: SUPERNATE COLOR TUBE #1 CLEAR (CLEAR)
[2017-06-09 18:24] LABS: CSF LYMPHOCYTES 91 %; CSF MONOCYTES 6 %; CSF NEUTROPHILS 3 %; RBC TUBE #4 30 /MM3; WBC TUBE #4 5 /MM3 (0-10)
[2017-06-09] MEDS: CHLORHEXIDINE 0.12% (ORAL KIT) 15 ML CUP MT SCH (20:00)
[2017-06-10] VITALS (19 sets, daily range): BP systolic 106–123; BP diastolic 51–57; PULSE 67–85; RESP 13–18; TEMP 98.2–99.5; O2SAT 98–100
[2017-06-10] MEDS: AZITHROMYCIN INJ 500 MG in SODIUM CHLOR 0.9% 250 ML INJ 250 ML IV SCH (01:48)
[2017-06-10] MEDS: RESP: ALBUTEROL 2.5 MG/IPRATROPIUM 0.5 MG NEB (SCH) INH ×4 (03:26→19:56)
[2017-06-10] MEDS: CHLORHEXIDINE GLUCONATE 2 % 1 PACK (2 CLOTHS) TOP SCH ×2 (04:00→20:45)
[2017-06-10] MEDS: PIPERACIL-TAZO 4.5 GM PREMIX 100 ML IV SCH ×4 (05:34→23:02)
[2017-06-10] MEDS: MIDAZOLAM 100 MG/100 ML INJ 100 ML IV PRN (05:35)
[2017-06-10 07:47] LABS: AUTOMATED NEUTROPHIL # 5.5 TH/MM3 (1.8-7.7); BASOPHIL # 0.1 TH/MM3 (0-0.2); EOSINOPHIL # 0.4 TH/MM3 (0-0.4); EOSINOPHIL % 4.3 % (0.0-4.0); HEMATOCRIT 33.6 % (39.0-51.0); HEMOGLOBIN 11.3 GM/DL (13.0-17.0); LYMPH % 21.4 % (9.0-44.0); LYMPHOCYTE # 1.8 TH/MM3 (1.0-4.8); MEAN CELL VOLUME 87.8 FL (80.0-100.0); MEAN CORPUSCULAR HEMOGLOBIN 29.5 PG (27.0-34.0); MEAN CORPUSCULAR HGB CONC 33.6 % (32.0-36.0); MEAN PLATELET VOLUME 8.7 FL (7.0-11.0); MONO % 8.6 % (0.0-8.0); MONOCYTE # 0.7 TH/MM3 (0-0.9); NEUT % 64.7 % (16.0-70.0); PLATELET COUNT 167 TH/MM3 (150-450); RED BLOOD COUNT 3.82 MIL/MM3 (4.50-5.90); RED CELL DISTRIBUTION WIDTH 13.6 % (11.6-17.2); WHITE BLOOD COUNT 8.5 TH/MM3 (4.0-11.0)
[2017-06-10] MEDS: CHLORHEXIDINE 0.12% (ORAL KIT) 15 ML CUP MT SCH ×2 (08:00→19:52)
[2017-06-10 08:04] LABS: BICARBONATE 22.2 MEQ/L (21.0-32.0); CALCIUM 7.5 MG/DL (8.5-10.1); CREATININE 1.17 MG/DL (0.60-1.30); MAGNESIUM 1.8 MG/DL (1.5-2.5); PHOSPHORUS 2.4 MG/DL (2.5-4.9)
[2017-06-10] MEDS: levETIRAcetam INJ 500 MG in SODIUM CHLORIDE 0.9% INJ 100 ML IV SCH ×2 (08:04→20:44)
[2017-06-10] MEDS: DOCUSATE SODIUM 50 MG/SENNA 8.6 MG TAB PO SCH ×2 (08:04→20:41)
[2017-06-10] MEDS: SODIUM CHLORIDE 0.9% FLUSH 10 ML FLUSH IV FLUSH SCH ×2 (08:04→19:52)
[2017-06-10] MEDS: PANTOPRAZOLE SODIUM 40 MG VIAL IV PUSH SCH (08:04)
[2017-06-10] MEDS: POTASSIUM PHOSPHATE INJ 30 MMOL in SODIUM CHLOR 0.9% 250 ML INJ 250 ML IV PRN (10:47)
--- NOTE | 2017-06-10 12:34 | RADRPT ---
EXAM DATE/TIME: 06/10/2017 09:58 [facility] COMPARISON: CT BRAIN W/O CONTRAST, June 08, 2017, 23:25. INDICATIONS : Seizures. MEDICAL HISTORY : None. SURGICAL HISTORY : None. ENCOUNTER: Initial ACUITY: 1 day PAIN SCORE: 0/10 LOCATION: cranial TECHNIQUE: Multiplanar, multisequence MRI of the brain was performed without contrast. FINDINGS: CEREBRUM: The ventricles are normal for age. No evidence of midline shift, mass lesion, hemorrhage or acute in farction. No extraaxial fluid collections are seen. The pituitary gland and suprasellar cistern are normal in configuration. WHITE MATTER: No significant signal abnormalities are seen in the white matter. POSTERIOR FOSSA: The cerebellum and brainstem are intact. The 4th ventricle is midline. The cerebellopontine angle is unremarkable. The cerebellar tonsils are normal in position. DIFFUSION IMAGING: No focal areas of restricted diffusion are seen. No evidence of acute infarction. EXTRACRANIAL: The visualized portions of the orbits and paranasal sinuses are unremarkable. CONCLUSION: Negative exam. Natalio Solorio MD on June 10, 2017 at 12:31 Board Certified Radiologist. This report was verified electronically.
--- NOTE | 2017-06-10 14:47 | ECHRPT ---
Indication: Heart Failure CONCLUSIONS Normal LV systolic function. No significant valve disease. BP: 107 / 54 HR: 93 Rhythm: Sinus MEASUREMENTS (Male / Female) Normal Values Technical Quality:Good 2D ECHO LV Diastolic Diameter PLAX 4.0 cm 4.2 - 5.9 / 3.9 - 5.3 cm LV Systolic Diameter PLAX 2.8 cm IVS Diastolic Thickness 0.9 cm 0.6 - 1.0 / 0.6 - 0.9 cm LVPW Diastolic Thickness 0.9 cm 0.6 - 1.0 / 0.6 - 0.9 cm LV Relative Wall Thickness 0.5 RV Internal Dim ED PLAX 2.2 cm LA Systolic Diameter LX 3.5 cm 3.0 - 4.0 / 2.7 - 3.8 cm M-MODE Aortic Root Diameter MM 3.1 cm AV Cusp Separation MM 2.2 cm DOPPLER Mitral E Point Velocity 98.2 cm/s Mitral A Point Velocity 58.2 cm/s Mitral E to A Ratio 1.7 TR Peak Velocity 240.0 cm/s TR Peak Gradient 23.0 mmHg FINDINGS LEFT VENTRICLE Normal left ventricular size. Wall thickness is normal. The left ventricular systolic function is normal with an estimated ejection fraction in the range of 60-65%. RIGHT VENTRICLE Normal right ventricular size and systolic function. LEFT ATRIUM The left atrial size is normal. RIGHT ATRIUM The right atrial size is normal. ATRIAL SEPTUM Normal atrial septal thickness without atrial level shunting by limited color doppler interrogation. AORTA The aortic root and proximal ascending aorta are normal in size on limited imaging. MITRAL VALVE Structurally normal mitral valve. No mitral valve stenosis or regurgitation. AORTIC VALVE Trileaflet aortic valve. No aortic valve stenosis or regurgitation. TRICUSPID VALVE Structurally normal tricuspid valve. No tricuspid valve stenosis or regurgitation. PULMONARY VALVE The pulmonary valve is not well visualized. VESSELS The inferior vena cava is normal in size. PERICARDIUM No pericardial effusion. Augustin Hendricks MD (Electronically Signed) Final Date:10 June 2017 14:47
[2017-06-10] MEDS ORDERED: HALOPERIDOL LACTATE 5 MG/ML AMP IV PRN (16:45)
[2017-06-10] MEDS ORDERED: DEXMEDETOMIDINE INJ 50 ML IV SCH (17:00)
[2017-06-10] MEDS ORDERED: DEXMEDETOMIDINE INJ 200 MCG in SODIUM CHLORIDE 0.9% INJ 50 ML IV SCH (17:00)
--- NOTE | 2017-06-10 18:27 | HHI.CCPN ---
Subjective Remarks/Hospital Course 21-year-old presents by EMS from home. Patient was seen in the emergency room a few hours ago for seizure. Apparently does not have history of seizure even though after further conversation with the patient's mother he had episode of seizures a year ago when he was experimenting with alprazolam as a recreational supplement. He had a workup done and was discharged home. Per family when he got home after discharge he was complaining of chest congestion and shortness of breath that was progressively getting worse. His girlfriend who was with him noticed that he had another episode of seizure that lasted for 3 minutes. She called EMS. As per paramedics when they arrived he was confused and postictal. They took him into the ambulance and he started vomiting blood ? . however NG tube placed in the ED didn't reveal any blood or coffee-ground content in the stomach. Patient was slightly tachycardic but blood pressure stable. They said his GCS was 15 on route. When patient arrived to the ER he was confused and GCS was 14. He was hemodynamically stable. His oxygen saturation was 80% on nonrebreather. As per EMS they noticed that his oxygen saturation was in mid 70s on room air when they first put him on a monitor. As I was talking to the paramedics patient started to cough up blood. He was intubated for progressively worsening respiratory distress and hypoxemia by ED attending. Subjective 06/09: Remains on multiple sedation medications and dopamine. CT brain no acute findings. MRI brain ordered. EEG showed medication induced encephalopathy. 06/10: encephalopathy persists. on lightening of sedation, becomes very agitated. does withdraw to pain, and is purposeful, but not following commands. MRI brain wnl. I had a long discussion with the family where I re-confirmed no international travel. He did spend 1 summer in [place] on a farm, and they did note that the farm had bats. Otherwise, he was in his complete and full state of health up until the day of admission. he works out daily and had no problems going to the gym the day before presentation. no other associated recent symptoms. parents do say he gets stomach aches when he eats "lots of gluten" so he tries to avoid it when he can. they say he alternates between a "ketogenic"-type diet (although does not adhere strictly to this), and an Adkin' s-type diet. He does eat occasional carbs, but rarely. Objective Vital Signs Date Time Temp Pulse Resp B/P (MAP) Pulse Ox O2 Delivery O2 Flow Rate FiO2 06/10/17 18:00 83 06/10/17 16:52 100 45 06/10/17 16:00 98.2 18 123/57 (79) 06/09/17 01:04 Ventilator 06/08/17 22:17 15.00 Intake and Output 06/10/17 06/10/17 06/11/17 08:00 16:00 00:00 Intake Total 2950 ml Output Total 375 ml Balance 2575 ml Result Diagram: 06/10/17 0730 06/10/17 0730 Other Results Microbiology Date/Time Source Procedure Growth Status 06/08/17 22:41 Urine Catheterized Urine Legionella Antigen - Final PRESUMPTIVE NEGATIVE FOR LEGIONELLA P... Complete Imaging Last Impressions Chest X-Ray 06/09/17 0000 Signed Impressions: Service Date/Time: May 02:51 - CONCLUSION: Bilateral upper lobe consolidation. Loki Pitts MD Head CT 06/08/177 Signed Impressions: Service Date/Time: Thursday, June 08, 2017 23:25 - CONCLUSION: Normal examination. Loki Pitts MD Chest CT 06/08/17 0000 Signed Impressions: Service Date/Time: Thursday, June 08, 2017 23:28 - CONCLUSION: 1. 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 Loki Pitts MD Objective Remarks GENERAL: 21-year-old male, lying in bed, sedated, intubated. SKIN: Warm and dry. HEAD: Normocephalic. EYES: No scleral icterus. No injection or drainage. NECK: Supple, trachea midline. No JVD or lymphadenopathy. CARDIOVASCULAR: Regular rate and rhythm without murmurs, gallops, or rubs. RESPIRATORY: Breath sounds equal bilaterally. No accessory muscle use. GASTROINTESTINAL: Abdomen soft, non-tender, nondistended. MUSCULOSKELETAL: No significant peripheral edema NEURO EXAM: Mental Status: The patient is sedated and intubated Cranial Nerves: Pupils are round, reactive to light. RASS -4. on my exam, does not open eyes to stimulation. does not withdraw to pain. +cough. Date of Insertion: Jun 09, 2017 Line: Central Venous Catheter Side: Right Location: Subclavian A/P Assessment and Plan Assessment: 21yM with an unremarkable past medical history presents with new- onset seizures, acute hypoxic respiratory failure, and bilateral pulmonary infiltrates. He also has associated mild acute kidney injury. He certainly has CT evidence of likely RLL aspiration pneumonitis, however there are other areas of patchy consolidation which are atypical for aspiration or multifocal pneumonia. cultures are all NGTD. Will consult pulmonology to get their recommendations. Will send histo urinary antigen. Given association with hemoptysis, mild acute kidney injury and pulmonary infiltrates, will send ESR and ANCA, as well as peripheral smear, though these auto-immune diagnoses appear to be less likely. For now will continue broad spectrum abx and attempt to wean sedation to obtain an improved neurologic exam. Remains very critically ill, off pathway, and in persistent respiratory failure and acute encephalopathy. Neuro/Psych: Seizure NOS THC use Acute encephalopathy Agitated Delirium Continue propofol. wean versed. start precedex. start seroquel scheduled goal RASS -2. Levetiracetam 500 mg IV twice a day EEG completed 06/09- encephalopathy. no ictal activity. CT brain revealed no acute intracranial findings MRI brain- no acute disease LP- not consistent with infectious etiology. Neurology consultation CV: Hypotension likely medication induced - resolved. Lactic acidosis resolved Elevated CPK off vasopressors. Currently normal saline in the 125 cc an hour Lactate is clear. 2-D echocardiogram: 06/10: LVEF 60%, no RWMA, no valvular lesions. Resp: Acute hypoxic and hypercarbic respiratory failure Noncardiogenic pulmonary edema? Hemoptysis? Bilateral pulmonary infiltrates ACV 18/550/8/35 Albuterol/ipratropium aerosols every 6 hours with albuterol aerosols every 2 hours. Dyspnea Ventilator bundle Spontaneous breathing trials CT thorax revealed crazy wavy pattern PAP, AIP, ARDS included in differential Chest x-ray this a.m. revealed bilateral upper lobe infiltrates. consult pulmonology send ANCA send ESR send histoplasma urinary antigen will discuss with pulmonology, could DAH have this appearance? GI: start TF. Pantoprazole for GI prophylaxis Docusate sodium/Senokot 1 tablet twice a day for bowel regimen : Keep hargrove catheter today given worsening of his acute kidney injury. Endo: Sliding-scale insulin if indicated Renal: Acute kidney injury - worsened today. Creatinine currently within normal limits Monitor urine output Accurate I's and O's Heme: Leukocytosis Monitor CBC daily. Follow trends ID: Aspiration Pneumonia Blood cultures 2 pending Currently on piperacillin/tazobactam and/azithromycin day #3 BAL cultures NGTD CSF cultures NGTD FEN: Replace electrolytes as clinically indicated MSK: PT evaluate and treat Critical Care: The total critical care time was 47 minutes. Time to perform other separately billable procedures was not included in the critical care time. Lemuel Fay MD Jun 10, 2017 18:27
[2017-06-10 18:45] LABS: WESTERGREN SEDIMENTATION RATE 14 mm/hr (0-15)
[2017-06-10] MEDS ORDERED: DEXMEDETOMIDINE INJ 1,000 MCG in SODIUM CHLOR 0.9% 250 ML INJ 240 ML IV SCH (18:45)
--- NOTE | 2017-06-10 19:07 | MB ---
cc: SURESH MOODY DATE OF CONSULTATION 06/10/[address] Fay REASON FOR CONSULTATION Evaluation for lung infiltrate and hemoptysis HISTORY OF PRESENT ILLNESS Mr. Rowland is a 21-year-old male with history of seizure one time related to Xanax use. The patient after that did not take any medications and he was doing well. This Tuesday the patient went to work. He was not feeling well. At home, he had one episode of seizure. He came to the hospital, was given medication, went home. His girlfriend brought him a hamburger. He ate it and after that many hours later, they noticed that he had another seizure lasting about three minutes and he was postictal and the EVAC got him. He came to the emergency room, was confused, started desaturating. The patient was intubated. He also had episodes of hemoptysis. The patient was worked up in the hospital. Currently, he is on the ventilator. His CT scan of the chest shows he has extensive consolidative changes with interlobular septal thickening consistent with crazy paving background. His CT scan of the MRI of the brain is negative. He had a spinal tap. He also had a bronchoscopy done. Currently, he is on ventilation FIO2 40%. He is sedated. PAST MEDICAL HISTORY History of marijuana use, history of Xanax use. MEDICATIONS He does not take any medication on a regular basis. 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 FAMILY HISTORY He is single. He has a girlfriend. He had a three siblings. REVIEW OF SYSTEMS As per his mother. The patient normally is active, goes to the [employer] going on for the last many years. He is very healthy. No significant medical problems. PHYSICAL EXAMINATION GENERAL: Well-built, well-nourished male on ventilator sedated. VITAL SIGNS: Blood pressure 123/53, heart rate 70. Respirations 16. Temperature 98.2 HEENT: Pupils are equal and reactive. He is orally intubated. NECK: Supple. JVD not raised. CHEST: Equal bilaterally. He has scattered rales. CARDIOVASCULAR: S1, S2 normal. ABDOMEN: Soft, nondistended. Bowel sounds present. EXTREMITIES: No edema. IMPRESSION 1. Ventilator dependent respiratory failure. 2. Bilateral extensive infiltrate of crazy paving pattern, possibility of aspiration inhalation injury or chemical pneumonitis. He does have a parakeet at home, possibility of histoplasmosis and other infections. 2. Seizure disorder. 3. Altered mental status PLAN I discussed with the patient's family at the bedside. We will maintain him on ventilator. He has no more hemoptysis. We will check a bronchial washing culture, also send urine Legionella pneumococcal antigen, histoplasma antigen has been sent. Get ID consultation. Wean from the ventilator as tolerated. Further treatment will depend on the course in the hospital. MD GARFIELD Ellison/ /6:18 PM /6:39 PM
[2017-06-10] MEDS: SODIUM CHLOR 0.9% 1000 ML INJ 1,000 ML IV SCH (19:51)
[2017-06-10] MEDS: MELATONIN 5 MG TAB PO SCH (20:44)
[2017-06-10] MEDS: QUEtiapine FUMARATE 25 MG TAB PO SCH (20:44)
--- NOTE | 2017-06-10 23:02 | HHI.PR ---
Review/Management Diagnosis - New onset seizures. - Questionable history of provoked seizure related to drugs/Xanax 18 months ago - Acute kidney injury - Elevated CPK. - Abnormal infiltration on lung imaging - THC use Plan - Neuro checks q. one hourly - Keppra 500mg Q12h - Continue supportive medical therapy. - DVT prophylaxis SCDs. - GI prophylaxis. - I explained the neurologic status with the parents and girlfriend at bed side , no evidence of a focal neurologic exam, unremarkable neurologic investigations. Diagnosis/Plan: Subjective Subjective Comments No reported seizure activity EEG slowing with no ictal activity CSF analysis unremarkable for an infectious etiology MRI brain unremarkable for an acute intracranial abnormality Father, mother and fiancee at bed side Chest imaging revealed b/l pulmonary infiltration Active Medications Current Medications Medications (Trade) Dose Ordered Sig/Bebe Route Start Time Stop Time Status Last Admin Piperacillin Sod/ Tazobactam Sod 100 ml @ 200 mls/hr Q6H IV 06/09/17 00:00 06/10/17 17:35 Azithromycin 500 mg/Sodium Chloride 250 ml @ 250 mls/hr Q24H IV 06/09/17 01:00 06/10/17 01:48 Sodium Chloride 1,000 ml @ 125 mls/hr Q8H IV 06/08/17 23:25 06/10/17 19:51 (NS Flush) 2 ml UNSCH PRN IV FLUSH 06/08/17 23:30 (NS Flush) 2 ml BID IV FLUSH 06/09/17 09:00 06/10/17 19:52 (Morphine Inj) 2 mg Q2H PRN IV PUSH 06/08/17 23:30 (Protonix Inj) 40 mg DAILY IV PUSH 06/09/17 09:00 06/10/17 08:04 (Ativan Inj) 1 mg Q1H PRN IV PUSH 06/08/17 23:30 (Zofran Inj) 4 mg Q6H PRN IV PUSH 06/08/17 23:30 (Duoneb Neb) 1 ampule Q6HR NEB INH 06/09/17 04:00 06/10/17 19:56 Miscellaneous Information 1 Q361D XX 06/08/17 23:30 06/08/17 23:30 (Chlorhexidine 2% Cloth) 3 pack Taper DAILY@04 TOP 06/09/17 04:00 06/05/18 03:59 06/10/17 20:45 (Chlorhexidine 2% Cloth) 3 pack UNSCH PRN TOP 06/08/17 23:30 (Stephanie-Colace) 1 tab BID PO 06/09/17 09:00 06/10/17 20:41 (Milk Of Magnesia Liq) 30 ml Q12H PRN PO 06/08/17 23:30 (Senokot) 17.2 mg Q12H PRN PO 06/08/17 23:30 (Dulcolax Supp) 10 mg DAILY PRN RECTAL 06/08/17 23:30 (Lactulose Liq) 30 ml DAILY PRN PO 06/08/17 23:30 (Peridex 0.12% Liq) 15 ml BID@08,20 MT 06/09/17 08:00 06/10/17 19:52 Propofol 100 ml @ 2.4 mls/hr TITRATE PRN IV 06/08/17 23:30 06/09/17 06:51 Midazolam HCl 100 ml @ 2 mls/hr TITRATE PRN IV 06/08/17 23:30 06/10/17 05:35 Fentanyl Citrate 250 ml @ 5 mls/hr TITRATE PRN IV 06/08/17 23:30 06/09/17 01:32 Levetriacetam 500 mg/Sodium Chloride 105 ml @ 420 mls/hr Q12HR IV 06/09/17 09:00 06/10/17 20:44 (Brethine Inj) 1 mg UNSCH PRN SQ 06/09/17 02:45 (Albuterol Neb) 2.5 mg Q2HR NEB PRN NEB 06/09/17 13:15 (Tylenol 650 Mg/ 20 ml Liq) 650 mg Q6H PRN NG 06/09/17 13:15 Potassium Chloride 100 ml @ 50 mls/hr Q2H PRN IV 06/09/17 16:00 Potassium Chloride 100 ml @ 50 mls/hr Q2H PRN IV 06/09/17 16:00 (K-Lyte Cl Eff) 50 meq UNSCH PRN PO 06/09/17 16:00 Potassium Chloride 100 ml @ 25 mls/hr UNSCH PRN IV 06/09/17 16:00 Potassium Chloride 100 ml @ 50 mls/hr Q2H PRN IV 06/09/17 16:00 Magnesium Sulfate 4 gm/Sodium Chloride 100 ml @ 50 mls/hr UNSCH PRN IV 06/09/17 16:00 (Mag-Ox) 800 mg UNSCH PRN PO 06/09/17 16:00 Magnesium Sulfate 2 gm/Sodium Chloride 100 ml @ 50 mls/hr UNSCH PRN IV 06/09/17 16:00 (K-Phos) 2,000 mg Q4H PRN PO 06/09/17 16:00 Sodium Phosphate 30 mmol/Sodium Chloride 250 ml @ 42 mls/hr UNSCH PRN IV 06/09/17 16:00 (K-Phos) 2,000 mg UNSCH PRN PO/TUBE 06/09/17 16:00 Potassium Phosphate 30 mmol/ Sodium Chloride 260 ml @ 42 mls/hr UNSCH PRN IV 06/09/17 16:00 06/10/17 10:47 (SEROquel) 50 mg Q8HR PO 06/10/17 16:45 06/10/17 20:44 (Melatonin) 5 mg HS PO 06/10/17 21:00 06/10/17 20:44 (Haldol Inj) 5 mg Q4H PRN IV 06/10/17 16:45 Dexmedetomidine HCl 1000 mcg/ Sodium Chloride 250 ml @ 18.87 mls/ hr TITRATE IV 06/10/17 18:45 06/10/17 20:44 Allergies Allergies Coded Allergies No Known Allergies ([id number]/25/17) Review of Systems All other ROS: ROS reviewed as documented in chart Exam I&O / VS 06/10/17 06/10/17 06/11/17 15:00 23:00 07:00 Output Total 350 ml Balance -350 ml Output Urine Total 350 ml # Bowel Movements 0 Vital Signs Date Time Temp Pulse Resp B/P (MAP) Pulse Ox O2 Delivery O2 Flow Rate FiO2 06/10/17 22:00 68 06/10/17 21:45 98 45 06/10/17 20:00 45 06/10/17 20:00 67 06/10/17 20:00 98.3 67 18 119/55 (76) 99 06/10/17 19:20 100 45 06/10/17 18:00 83 06/10/17 16:52 100 45 06/10/17 16:00 73 10/27/17 16:00 45 06/10/17 16:00 98.2 73 18 123/57 (79) 100 06/10/17 14:00 74 06/10/17 12:00 45 06/10/17 12:00 99.2 84 18 108/52 (70) 99 06/10/17 12:00 84 06/10/17 10:45 100 45 06/10/17 10:00 82 06/10/17 09:15 100 100 06/10/17 08:00 45 06/10/17 08:00 72 06/10/17 08:00 99.5 72 13 115/57 (76) 100 06/10/17 07:59 100 45 06/10/17 06:00 75 06/10/17 04:10 100 45 06/10/17 04:00 99.3 83 18 113/57 (75) 100 06/10/17 04:00 45 06/10/17 04:00 76 06/10/17 02:00 79 06/10/17 00:00 98.4 85 18 106/51 (69) 99 06/10/17 00:00 45 06/10/17 00:00 85 06/09/17 23:47 99 45 Exam Comments GENERAL: Well-developed, intubated HEENT: Atraumatic, normocephalic. NECK: No signs of meningeal irritation. CARDIOVASCULAR: Regular rate and rhythm. RESPIRATORY: Clear to auscultation. No wheezes. MUSCULOSKELETAL: No cyanosis or edema. NEUROLOGIC: Intubated, sedated. Reactive pupils. Objective Radiology Results Last 72 hours Impressions Brain MRI 06/10/17 0000 Signed Impressions: Service Date/Time: Saturday, June 10, 2017 09:58 - CONCLUSION: Negative exam. Natalio Solorio MD Lumbar Puncture Fluoroscopy 06/09/17 0000 Signed Impressions: Service Date/Time: May 15:34 - CONCLUSION: Uncomplicated fluoroscopically guided lumbar puncture with pressures as above. Ang Wray MD Chest X-Ray 06/09/17 0000 Signed Impressions: Service Date/Time: May 02:51 - CONCLUSION: Bilateral upper lobe consolidation. Loki Pitts MD Head CT 06/08/17 2227 Signed Impressions: Service Date/Time: Thursday, June 08, 2017 23:25 - CONCLUSION: Normal examination. Loki Pitts MD Chest X-Ray 06/08/17 0000 Signed Impressions: Service Date/Time: Thursday, June 08, 2017 22:24 - CONCLUSION: Worsening bilateral upper lung zone infiltrates. ET tube could be advanced slightly. Lonnie Almazan MD Chest CT 06/08/17 0000 Signed Impressions: Service Date/Time: Thursday, June 08, 2017 23:28 - CONCLUSION: 1. 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 Loki Pitts MD Micro and Labs Laboratory Tests Test 06/10/17 07:30 06/10/17 17:00 White Blood Count 8.5 Red Blood Count 3.82 Hemoglobin 11.3 Hematocrit 33.6 Mean Corpuscular Volume 87.8 Mean Corpuscular Hemoglobin 29.5 Mean Corpuscular Hemoglobin Concent 33.6 Red Cell Distribution Width 13.6 Platelet Count 167 Mean Platelet Volume 8.7 Neutrophils (%) (Auto) 64.7 Lymphocytes (%) (Auto) 21.4 Monocytes (%) (Auto) 8.6 Eosinophils (%) (Auto) 4.3 Basophils (%) (Auto) 1.0 Neutrophils # (Auto) 5.5 Lymphocytes # (Auto) 1.8 Monocytes # (Auto) 0.7 Eosinophils # (Auto) 0.4 Basophils # (Auto) 0.1 CBC Comment DIFF FINAL Differential Comment Blood Urea Nitrogen 10 Creatinine 1.17 Random Glucose 66 Calcium Level 7.5 Phosphorus Level 2.4 Magnesium Level 1.8 Sodium Level 143 Potassium Level 3.0 Chloride Level 111 Carbon Dioxide Level 22.2 Anion Gap 10 Estimat Glomerular Filtration Rate 78 Blood Smear Pathologist Review Erythrocyte Sedimentation Rate 14 Total Creatine Kinase 2850 Creatine Kinase MB 15.9 Creatine Kinase MB % 0.6 Date/Time Source Procedure Growth Status 06/08/17 23:10 Blood Peripheral Aerobic Blood Culture - Preliminary NO GROWTH IN 2 DAYS Resulted 06/08/17 23:10 Blood Peripheral Anaerobic Blood Culture - Preliminary NO GROWTH IN 2 DAYS Resulted 06/09/17 16:19 Cerebral Spinal Fluid Lumbar Puncture Fungal Smear - Final NO FUNGAL ELEMENTS SEEN. Resulted 06/09/17 16:19 Cerebral Spinal Fluid Lumbar Puncture Fungal Culture Pending Resulted 06/09/17 02:15 Bronchial Washings Bronchial Fungal Smear - Final NO FUNGAL ELEMENTS SEEN. Resulted 06/09/17 02:15 Bronchial Washings Bronchial Fungal Culture Pending Resulted 06/10/17 18:20 Urine Catheterized Urine Streptococcus pneumoniae Antigen (M Pending Received Oziel Rojas MD Jun 10, 2017 23:02
[2017-06-11] VITALS (17 sets, daily range): BP systolic 128–169; BP diastolic 61–103; PULSE 69–124; RESP 14–30; TEMP 98.8–102.2; O2SAT 91–97
[2017-06-11] MEDS: AZITHROMYCIN INJ 500 MG in SODIUM CHLOR 0.9% 250 ML INJ 250 ML IV SCH (00:20)
[2017-06-11] MEDS: RESP: ALBUTEROL 2.5 MG/IPRATROPIUM 0.5 MG NEB (SCH) INH ×4 (02:47→21:23)
[2017-06-11] MEDS: QUEtiapine FUMARATE 25 MG TAB PO SCH (03:01)
[2017-06-11] MEDS: PIPERACIL-TAZO 4.5 GM PREMIX 100 ML IV SCH ×3 (05:09→17:15)
--- NOTE | 2017-06-11 05:27 | RADRPT ---
EXAM DATE/TIME: 06/11/2017 04:12 [facility] COMPARISON: CHEST SINGLE AP, June 09, 2017, 2:51. INDICATIONS : Shortness of breath, possible pulmonary disease. MEDICAL HISTORY : None. SURGICAL HISTORY : None. ENCOUNTER: Subsequent ACUITY: 4 - 6 days PAIN SCORE: Non-responsive. LOCATION: Bilateral chest FINDINGS: Diffuse airspace opacities persist but are slightly improved in the interim. No effusion demonstrated . No pneumothorax. Heart size stable, within normal limits. Nasogastric tube has been. Right subclavian central venous catheter remains in place, tip at the atri ocaval junction. CONCLUSION: Slightly improved bilateral airspace disease. Lonnie Horn MD on June 11, 2017 at 5:24 Board Certified Radiologist. This report was verified electronically.
[2017-06-11 05:39] LABS: AUTOMATED NEUTROPHIL # 7.8 TH/MM3 (1.8-7.7); BASOPHIL # 0.1 TH/MM3 (0-0.2); BASOPHIL % 0.6 % (0.0-2.0); EOSINOPHIL # 0.3 TH/MM3 (0-0.4); HEMATOCRIT 35.4 % (39.0-51.0); HEMOGLOBIN 11.9 GM/DL (13.0-17.0); LYMPH % 12.3 % (9.0-44.0); LYMPHOCYTE # 1.2 TH/MM3 (1.0-4.8); MEAN CELL VOLUME 87.8 FL (80.0-100.0); MEAN CORPUSCULAR HEMOGLOBIN 29.5 PG (27.0-34.0); MEAN CORPUSCULAR HGB CONC 33.6 % (32.0-36.0); MEAN PLATELET VOLUME 9.4 FL (7.0-11.0); MONO % 5.8 % (0.0-8.0); MONOCYTE # 0.6 TH/MM3 (0-0.9); NEUT % 78.3 % (16.0-70.0); PLATELET COUNT 165 TH/MM3 (150-450); RED BLOOD COUNT 4.04 MIL/MM3 (4.50-5.90); RED CELL DISTRIBUTION WIDTH 13.5 % (11.6-17.2); WHITE BLOOD COUNT 9.9 TH/MM3 (4.0-11.0)
[2017-06-11 06:03] LABS: ALBUMIN 2.7 GM/DL (3.4-5.0); ALT (GPT) 41 U/L (12-78); AST (GOT) 107 U/L (15-37); BICARBONATE 22.4 MEQ/L (21.0-32.0); BLOOD UREA NITROGEN 9 MG/DL (7-18); CALCIUM 7.9 MG/DL (8.5-10.1); CHLORIDE 110 MEQ/L (98-107); CREATININE 1.16 MG/DL (0.60-1.30); GLOMERULAR FILTRATION RATE 79 ML/MIN (>89); GLUCOSE,RANDOM 99 MG/DL (74-106); MAGNESIUM 1.6 MG/DL (1.5-2.5); PHOSPHORUS 2.2 MG/DL (2.5-4.9); SODIUM (NA) 142 MEQ/L (136-145)
[2017-06-11 06:05] LABS: ALKALINE PHOSPHATASE 63 U/L (45-117); TOTAL PROTEIN 5.9 GM/DL (6.4-8.2)
[2017-06-11] MEDS: CHLORHEXIDINE 0.12% (ORAL KIT) 15 ML CUP MT SCH ×2 (08:00→19:52)
[2017-06-11] MEDS: ONDANSETRON HCL 4 MG/2 ML VIAL IV PUSH PRN (08:11)
[2017-06-11] MEDS: SODIUM CHLORIDE 0.9% FLUSH 10 ML FLUSH IV FLUSH SCH ×2 (08:11→19:53)
[2017-06-11] MEDS: DOCUSATE SODIUM 50 MG/SENNA 8.6 MG TAB PO SCH ×2 (08:12→19:53)
[2017-06-11] MEDS: SODIUM CHLOR 0.9% 1000 ML INJ 1,000 ML IV SCH (08:12)
[2017-06-11] MEDS: levETIRAcetam INJ 500 MG in SODIUM CHLORIDE 0.9% INJ 100 ML IV SCH ×2 (08:32→19:53)
[2017-06-11] MEDS: POTASSIUM PHOSPHATE INJ 30 MMOL in SODIUM CHLOR 0.9% 250 ML INJ 250 ML IV PRN (10:48)
[2017-06-11] MEDS: SODIUM CHLORIDE 0.9% FLUSH 10 ML FLUSH IV FLUSH PRN ×2 (14:17→17:15)
[2017-06-11] MEDS: MORPHINE SULFATE 4 MG/ML INJ IV PUSH PRN ×2 (14:17→17:15)
--- NOTE | 2017-06-11 14:25 | MB ---
cc: AUREA SLATER MD DATE OF CONSULTATION: 06/11/2017. REASON FOR CONSULTATION: Lung infiltrate. REQUESTING PHYSICIAN: Dr. Meade. HISTORY OF PRESENT ILLNESS: This is a 21-year-old white male who was admitted to the hospital after he initially presented to the emergency department with seizure. The patient was seen in the emergency department on the afternoon of 07/09 and he reportedly fell down and had a witnessed tonic clonic type of seizure activity. He reportedly has a history of one seizure episode in the past approximately 18 months ago. The patient was evaluated in the emergency department and his white count was 12.6 and he was afebrile. He was discharged home and had a diagnosis of syncope versus seizure versus electrolyte abnormality. The patient went home and vomited shortly after he got home and later in the evening he again had vomiting episode and then had a witnessed seizure by his girlfriend and was brought to the emergency department again in the evening of 06/08. He was evaluated and was confused and postictal. The patient then suddenly started coughing up blood and he was intubated because of hypoxia. He was then admitted to the intensive care unit. Chest x-ray went from bilateral upper lung zone infiltrates. There were two extensive consolidative changes with interlobar septal thickening consistent with hazy changes seen in pulmonary alveolar proteinosis or ARDS or bacterial pneumonia or acute interstitial pneumonia. The patient was started on antibiotics. Sputum culture was obtained. Sputum culture showed no growth. Blood cultures were negative. The patient underwent lumbar puncture and CSF showed 5 white cells and 31 red cells. Glucose and protein were normal. His white count was up to 15.9 early yesterday morning and today the white count is normal. Yesterday's white count was also normal. The chest x-ray showed improvement and the patient has been extubated today. He is coughing up slight blood-tinged sputum which does not appear purulent. His temperature is 101.6 degrees currently. The patient has been started on antibiotics including azithromycin and piperacillin / tazobactam. It is reported that the patient's brother has a parakeet as a pet at home to which he gets exposed occasionally. There is no report of respiratory distress or respiratory symptoms prior to the seizure event. An MRI of the brain was negative. The patient works as a [employer]. He is noted to smoke marijuana but no tobacco use. He appears a little drowsy and has oxygen via non-rebreather face mask. It is difficult to interview him because of the oxygen face mask in place but he states that he feels okay. His mother is at bedside and some information was obtained from her. However, she states that she was out of town and had not seen him for the week prior to this event. PAST MEDICAL HISTORY Seizure x1 otherwise unremarkable. ALLERGIES: NO KNOWN DRUG ALLERGIES. MEDICATIONS: 1. Azithromycin. 2. Piperacillin / tazobactam. 3. Potassium. 4. Levetiracetam. 5. Zofran. SOCIAL HISTORY: No tobacco use. Occasional alcohol use. Positive marijuana use. FAMILY HISTORY: Noncontributory. REVIEW OF SYSTEMS: Pertinents mentioned above. Mainly seizure activity and hemoptysis. PHYSICAL EXAMINATION: GENERAL: On physical exam, this is a well-developed muscular male in no acute distress. He is awake but drowsy. VITAL SIGNS: Include temperature of 101.6, blood pressure 147/103, respirations 25, heart rate 124. HEAD, EYES, EARS, NOSE, THROAT: His head is atraumatic. The patient has a few red blotchy raised spots on the face. Extraocular movements grossly intact. Pupils reactive to light. No icterus. Oropharynx has no visible lesions. No thrush. NECK: The neck is supple and without adenopathy. LUNGS: Diminished breath sounds bilateral. HEART: Regular S1-S2 without murmurs, rubs or gallops. ABDOMEN: Bowel sounds present, soft, flat, nontender. RECTAL: Not performed. EXTREMITIES: No clubbing or cyanosis. Edema at the hands. SKIN: No rash. NEUROLOGIC: No gross focal findings. PSYCHIATRIC: The patient is calm. LABORATORY DATA: WBCs 9.9, platelets 165,000, hemoglobin 11.9. Creatinine 1.16, estimated GFR of 97, sodium 142. Liver function tests normal. IMPRESSION: 1. Bilateral lung infiltrates, probably secondary to pneumonia. The patient very likely aspirated. He also likely has an ARDS component. 2. Acute respiratory failure. The patient is status post extubation. 3. Seizure disorder. Lumbar puncture suggests no infection as the cause of the seizure; however, there are still some studies pending including HSV in spinal fluid. 4. Fever, probably secondary to pneumonia or aspiration. RECOMMENDATIONS: 1. Continue piperacillin / tazobactam. 2. Continue azithromycin. 3. Monitor blood cultures. 4. Obtain Chlamydia antibody titers given the patient's exposure to a parakeet bird. 5. Monitor the white blood cell count and temperature. Thank you this consultation. The patient's progress will be monitored and further recommendations will be made upon followup. Aurea Slater MD FD/JOSE /12:05 PM /2:05 PM
--- NOTE | 2017-06-11 16:21 | HHI.PR ---
Subjective Remarks 21 YOWM with RF, SZ Extubated this AM ON PRB Breathing better Blood tinge small amount of sp has Fever Objective Vital Signs Vital Signs Date Time Temp Pulse Resp B/P (MAP) Pulse Ox O2 Delivery O2 Flow Rate FiO2 06/11/17 14:00 99 06/11/17 12:00 124 06/11/17 12:00 101.6 124 25 147/103 (118) 95 06/11/17 11:27 96 Non-Rebreather 12.00 06/11/17 10:00 119 06/11/17 08:00 101.2 118 26 169/88 (115) 91 06/11/17 08:00 118 06/11/17 06:00 97 06/11/17 04:00 99 06/11/17 04:00 98.8 99 21 136/63 (87) 95 06/11/17 02:30 96 Nasal Cannula 3 06/11/17 02:00 97 40 06/11/17 02:00 99 06/11/17 01:12 97 40 06/11/17 00:00 45 06/11/17 00:00 98.9 69 14 128/61 (83) 97 06/11/17 00:00 69 06/10/17 22:00 68 06/10/17 21:45 98 45 06/10/17 20:00 45 06/10/17 20:00 67 06/10/17 20:00 98.3 67 18 119/55 (76) 99 06/10/17 19:20 100 45 06/10/17 18:00 83 06/10/17 16:52 100 45 I/O 06/10/17 06/10/17 06/10/17 06/11/17 06/11/17 06/11/17 07:00 15:00 23:00 07:00 15:00 23:00 Intake Total 2950 ml 99 ml Output Total 375 ml 350 ml 900 ml 2000 ml Balance 2575 ml -350 ml -900 ml -1901 ml Intake IV Total 2950 ml 99 ml Output Urine Total 375 ml 350 ml 900 ml 2000 ml # Bowel Movements 0 Result Diagram: 06/11/17 0500 06/11/17 0500 Objective Remarks GENERAL: WBWN WM, mild sob SKIN: Warm and dry. HEAD: Normocephalic. EYES: No scleral icterus. No injection or drainage. NECK: Supple, trachea midline. No JVD or lymphadenopathy. CARDIOVASCULAR: Regular rate and rhythm without murmurs, gallops, or rubs. RESPIRATORY: Breath sounds equal bilaterally. No accessory muscle use. Bilat rales GASTROINTESTINAL: Abdomen soft, non-tender, nondistended. MUSCULOSKELETAL: No cyanosis, or edema. BACK: Nontender without obvious deformity. No CVA tenderness. A/P Assessment and Plan Resp Failure, s/p extubation Bilat lung infilt, ? aspiration Fever Sz disorder PLAN: Supplement 02, keep sat >92% check cultures check Histo titer Check Blood cultures Abx Zosyn and Zithro. Pedro Meade MD Jun 11, 2017 16:21
--- NOTE | 2017-06-11 16:47 | HHI.CCPN ---
Subjective Remarks/Hospital Course 21-year-old presents by EMS from home. Patient was seen in the emergency room a few hours ago for seizure. Apparently does not have history of seizure even though after further conversation with the patient's mother he had episode of seizures a year ago when he was experimenting with alprazolam as a recreational supplement. He had a workup done and was discharged home. Per family when he got home after discharge he was complaining of chest congestion and shortness of breath that was progressively getting worse. His girlfriend who was with him noticed that he had another episode of seizure that lasted for 3 minutes. She called EMS. As per paramedics when they arrived he was confused and postictal. They took him into the ambulance and he started vomiting blood ? . however NG tube placed in the ED didn't reveal any blood or coffee-ground content in the stomach. Patient was slightly tachycardic but blood pressure stable. They said his GCS was 15 on route. When patient arrived to the ER he was confused and GCS was 14. He was hemodynamically stable. His oxygen saturation was 80% on nonrebreather. As per EMS they noticed that his oxygen saturation was in mid 70s on room air when they first put him on a monitor. As I was talking to the paramedics patient started to cough up blood. He was intubated for progressively worsening respiratory distress and hypoxemia by ED attending. Subjective 06/09: Remains on multiple sedation medications and dopamine. CT brain no acute findings. MRI brain ordered. EEG showed medication induced encephalopathy. 06/10: encephalopathy persists. on lightening of sedation, becomes very agitated. does withdraw to pain, and is purposeful, but not following commands. MRI brain wnl. I had a long discussion with the family where I re-confirmed no international travel. He did spend 1 summer in [place] on a farm, and they did note that the farm had bats. Otherwise, he was in his complete and full state of health up until the day of admission. he works out daily and had no problems going to the gym the day before presentation. no other associated recent symptoms. parents do say he gets stomach aches when he eats "lots of gluten" so he tries to avoid it when he can. they say he alternates between a "ketogenic"-type diet (although does not adhere strictly to this), and an Adkin' s-type diet. He does eat occasional carbs, but rarely. 06/11: extubated overnight. on NRB this AM. follows commands and answering some questions, but still dyspneic. legionella Ag negative. all cultures still NGTD. Objective Vital Signs Date Time Temp Pulse Resp B/P (MAP) Pulse Ox O2 Delivery O2 Flow Rate FiO2 06/11/17 16:00 103 06/11/17 16:00 102.2 22 144/82 (102) 95 06/11/17 11:27 Non-Rebreather 12.00 06/11/17 02:00 40 Intake and Output 06/11/17 06/11/17 06/12/17 08:00 16:00 00:00 Intake Total 334 ml Output Total 900 ml 2000 ml 2650 ml Balance -900 ml -1666 ml -2650 ml Result Diagram: 06/11/17 0500 06/11/17 0500 Other Results Microbiology Date/Time Source Procedure Growth Status 06/09/17 02:15 Bronchial Washings Bronchial Gram Stain - Final Complete 06/09/17 02:15 Bronchial Washings Bronchial Bronchial Culture - Final NO GROWTH IN 48 HOURS. Complete 06/09/17 01:30 Sputum Endotracheal Gram Stain - Final Complete 06/09/17 01:30 Sputum Endotracheal Sputum Culture - Final NO GROWTH IN 48 HOURS. Complete 06/10/17 18:20 Urine Catheterized Urine Streptococcus pneumoniae Antigen (M - Final PRESUMPTIVE NEGATIVE FOR STREPTOCOCCU... Complete 06/10/17 18:20 Urine Clean Catch Legionella Antigen - Final PRESUMPTIVE NEGATIVE FOR LEGIONELLA P... Complete 06/08/17 22:41 Urine Catheterized Urine Legionella Antigen - Final PRESUMPTIVE NEGATIVE FOR LEGIONELLA P... Complete 06/08/17 22:41 Urine Catheterized Urine Urine Culture - Final NO GROWTH IN 48 HOURS. Complete Laboratory Tests Test 06/10/17 22:45 06/11/17 05:21 Blood Gas Puncture Site RT RADIAL LT RADIAL Blood Gas Patient Temperature 98.6 98.6 Blood Gas HCO3 21 mmol/L (22-26) 20 mmol/L (22-26) Blood Gas Base Excess -3.9 mmol/L (-2-2) -4.0 mmol/L (-2-2) Blood Gas Oxygen Saturation 97 % (90-100) 87 % (90-100) Arterial Blood pH 7.34 (7.380-7.420) 7.38 (7.380-7.420) Arterial Blood Partial Pressure CO2 41 mmHg (38-42) 35 mmHg (38-42) Arterial Blood Partial Pressure O2 185 mmHg (61-120) 56 mmHg (61-120) Arterial Blood Oxygen Content 15.7 Vol % (12.0-20.0) 14.9 Vol % (12.0-20.0) Arterial Blood Carboxyhemoglobin 0.5 % (0-4) 0.8 % (0-4) Arterial Blood Methemoglobin 1.3 % (0-2) 1.1 % (0-2) Blood Gas Hemoglobin 11.2 G/DL (12.0-16.0) 12.1 G/DL (12.0-16.0) Oxygen Delivery Device VENTILATOR NASAL CANNULA Blood Gas Ventilator Setting PC/AC Blood Gas Inspired Oxygen 45 % 50 % Blood Gas Liter Flow 6 L/M Imaging Last Impressions Chest X-Ray 06/09/17 0000 Signed Impressions: Service Date/Time: May 02:51 - CONCLUSION: Bilateral upper lobe consolidation. Loki Pitts MD Head CT 06/08/17 2227 Signed Impressions: Service Date/Time: Thursday, June 08, 2017 23:25 - CONCLUSION: Normal examination. Loki Pitts MD Chest CT 06/08/17 0000 Signed Impressions: Service Date/Time: Thursday, June 08, 2017 23:28 - CONCLUSION: 1. 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 Loki Pitts MD Objective Remarks GENERAL: 21-year-old male, lying in bed, on NRB. mild respiratory distress. SKIN: Warm and dry. HEAD: Normocephalic. EYES: No scleral icterus. No injection or drainage. NECK: trachea midline. No JVD CARDIOVASCULAR: tachycardic rate and rhythm. Sinus by tele. RESPIRATORY: NRB in place. tachypneic. bilateral coarse rales. GASTROINTESTINAL: Abdomen soft, non-tender, nondistended. MUSCULOSKELETAL: No significant peripheral edema NEURO EXAM: RASS -1. follows commands. Date of Insertion: Jun 09, 2017 Line: Central Venous Catheter Side: Right Location: Subclavian A/P Assessment and Plan Assessment: 21yM with an unremarkable past medical history presents with new- onset seizures, acute hypoxic respiratory failure, and bilateral pulmonary infiltrates. He also has associated mild acute kidney injury. Some improvements in mental status, although hypoxemia persists. will attempt to prevent re-intubation with aggressive pulmonary toilet. failed speech/swallow evaluation so will keep NPO for now. Highly complex and although mental status is improving, still multiple organs involved. appreciate Pulmonology input and ongoing recommendations. Neuro/Psych: Seizure NOS THC use Acute encephalopathy - improving. Agitated Delirium - improving. - d/c seroquel - may need precedex if agitated. goal RASS 0 Levetiracetam 500 mg IV twice a day EEG completed 06/09- encephalopathy. no ictal activity. CT brain revealed no acute intracranial findings MRI brain- no acute disease LP- not consistent with infectious etiology. Neurology consultation CV: Hypotension likely medication induced - resolved. Lactic acidosis resolved Elevated CPK off vasopressors. decrease mivf to NS @ 50 cc/hr. Lactate is clear. 2-D echocardiogram: 06/10: LVEF 60%, no RWMA, no valvular lesions. Resp: Acute hypoxic and hypercarbic respiratory failure - improving, but off pathway and persistent. Noncardiogenic pulmonary edema? Hemoptysis? Bilateral pulmonary infiltrates Albuterol/ipratropium aerosols every 6 hours with albuterol aerosols every [address] thorax revealed crazy wavy pattern PAP, AIP, ARDS included in differential pulmonology following f/u ANCA, urine histo Ag GI: Dysphagia Pantoprazole for GI prophylaxis Docusate sodium/Senokot 1 tablet twice a day for bowel regimen keep NPO. speech re-eval daily. : Keep hargrove catheter today given persistent MIREYA. will consider removing tomorrow. Endo: Sliding-scale insulin if indicated Renal: Acute kidney injury - persistent. Monitor urine output Accurate I's and O's Heme: Leukocytosis Monitor CBC daily. Follow trends ID: Aspiration Pneumonia Blood cultures 2 pending Currently on piperacillin/tazobactam and/azithromycin day #4 BAL cultures NGTD CSF cultures NGTD FEN: Replace electrolytes as clinically indicated MSK: PT evaluate and treat Lemuel Fay MD Jun 11, 2017 16:47
[2017-06-11] MEDS: MELATONIN 5 MG TAB PO SCH (19:53)
[2017-06-12] VITALS (14 sets, daily range): BP systolic 124–147; BP diastolic 71–89; PULSE 54–92; RESP 20–33; TEMP 97.2–98.6; O2SAT 87–99
[2017-06-12] MEDS: MORPHINE SULFATE 4 MG/ML INJ IV PUSH PRN (00:01)
[2017-06-12] MEDS: AZITHROMYCIN INJ 500 MG in SODIUM CHLOR 0.9% 250 ML INJ 250 ML IV SCH (00:05)
[2017-06-12] MEDS: PIPERACIL-TAZO 4.5 GM PREMIX 100 ML IV SCH ×4 (00:05→18:08)
[2017-06-12] MEDS: ONDANSETRON HCL 4 MG/2 ML VIAL IV PUSH PRN ×3 (00:19→14:38)
[2017-06-12 01:32] LABS: PHOSPHORUS 3.2 MG/DL (2.5-4.9)
[2017-06-12] MEDS ORDERED: POTASSIUM CHLOR 20 MEQ PREMIX 100 ML IV PRN (02:15)
[2017-06-12] MEDS ORDERED: MAGNESIUM OXIDE 400 MG TAB PO PRN (02:15)
[2017-06-12] MEDS ORDERED: POTASSIUM PHOSPHATE MONOBASIC 500 MG TAB PO/TUBE PRN (02:15)
[2017-06-12] MEDS ORDERED: POTASSIUM PHOSPHATE MONOBASIC 500 MG TAB PO PRN (02:15)
[2017-06-12] MEDS ORDERED: POTASSIUM PHOSPHATE INJ 30 MMOL in SODIUM CHLOR 0.9% 250 ML INJ 250 ML IV PRN (02:15)
[2017-06-12] MEDS ORDERED: SODIUM PHOSPHATE INJ 30 MMOL in SODIUM CHLOR 0.9% 250 ML INJ 240 ML IV PRN (02:15)
[2017-06-12] MEDS ORDERED: MAGNESIUM SULFATE INJ 4 GM in SODIUM CHLORIDE 0.9% INJ 92 ML IV PRN (02:15)
[2017-06-12] MEDS ORDERED: MAGNESIUM SULFATE INJ 2 GM in SODIUM CHLORIDE 0.9% INJ 96 ML IV PRN (02:15)
[2017-06-12] MEDS ORDERED: POTASSIUM CHLOR 40 MEQ PREMIX 100 ML IV PRN ×2 (02:15)
[2017-06-12] MEDS ORDERED: POTASSIUM CHLORIDE 25 MEQ EFFERVESCENT TAB PO PRN (02:15)
[2017-06-12] MEDS: CHLORHEXIDINE GLUCONATE 2 % 1 PACK (2 CLOTHS) TOP SCH (04:00)
[2017-06-12] MEDS: RESP: ALBUTEROL 2.5 MG/IPRATROPIUM 0.5 MG NEB (SCH) INH ×4 (04:12→21:01)
[2017-06-12] MEDS: SODIUM CHLOR 0.9% 1000 ML INJ 1,000 ML IV SCH (04:13)
--- NOTE | 2017-06-12 04:20 | RADRPT ---
EXAM DATE/TIME: 06/12/2017 02:48 [facility] COMPARISON: CHEST SINGLE AP, June 11, 2017, 4:12. INDICATIONS : Evaluate for pnuemonia MEDICAL HISTORY : None. SURGICAL HISTORY : None. ENCOUNTER: Subsequent ACUITY: 1 week PAIN SCORE: 8/10 LOCATION: Bilateral chest FINDINGS: Diffuse but upper lobe predominant bilateral airspace opacities persist and are not significantly mando nged. No large effusion. No pneumothorax. Heart size stable, within normal limits. Right subclavian central venous catheter again seen, tip at the atriocaval junction. CONCLUSION: No significant change upper lobe predominant diffuse bilateral airspace opacities. Lonnie Horn MD on June 12, 2017 at 4:17 Board Certified Radiologist. This report was verified electronically.
[2017-06-12 06:01] LABS: HEMATOCRIT 36.8 % (39.0-51.0); HEMOGLOBIN 12.5 GM/DL (13.0-17.0); MEAN CELL VOLUME 85.8 FL (80.0-100.0); MEAN CORPUSCULAR HEMOGLOBIN 29.2 PG (27.0-34.0); MEAN PLATELET VOLUME 9.2 FL (7.0-11.0); PLATELET COUNT 192 TH/MM3 (150-450); RED BLOOD COUNT 4.29 MIL/MM3 (4.50-5.90); RED CELL DISTRIBUTION WIDTH 12.9 % (11.6-17.2); WHITE BLOOD COUNT 11.1 TH/MM3 (4.0-11.0)
[2017-06-12 07:08] LABS: CALCIUM 8.5 MG/DL (8.5-10.1); CREATININE 0.86 MG/DL (0.60-1.30); PHOSPHORUS 3.4 MG/DL (2.5-4.9)
[2017-06-12] MEDS: CHLORHEXIDINE 0.12% (ORAL KIT) 15 ML CUP MT SCH ×2 (07:11→20:00)
[2017-06-12] MEDS: DOCUSATE SODIUM 50 MG/SENNA 8.6 MG TAB PO SCH ×2 (08:36→20:15)
[2017-06-12] MEDS: levETIRAcetam INJ 500 MG in SODIUM CHLORIDE 0.9% INJ 100 ML IV SCH ×2 (09:04→20:15)
[2017-06-12] MEDS: SODIUM CHLORIDE 0.9% FLUSH 10 ML FLUSH IV FLUSH SCH ×2 (09:04→20:15)
--- NOTE | 2017-06-12 11:06 | HHI.IDPN ---
Note Infectious Disease Note Patient feels a lot better. On nasal canula. occasional clear sputum. Denies chest pain or chills. Afebrile. Alert. Want's to eat. PAST MEDICAL HISTORY Seizure x1 otherwise unremarkable. ALLERGIES: NO KNOWN DRUG ALLERGIES. ANTIBIOTICS: 1. Azithromycin. 2. Piperacillin / tazobactam. SOCIAL HISTORY: No tobacco use. Occasional alcohol use. Positive marijuana use. PHYSICAL EXAMINATION: GENERAL: No acute distress. HEAD, EYES, EARS, NOSE, THROAT: His head is atraumatic. The patient has a few red blotchy raised spots on the face. Extraocular movements grossly intact. Pupils reactive to light. No icterus. Oropharynx has no visible lesions. No thrush. NECK: The neck is supple and without adenopathy. LUNGS: Diminished breath sounds. HEART: Regular S1-S2 without murmurs, rubs or gallops. ABDOMEN: Bowel sounds present, soft, flat, nontender. EXTREMITIES: No clubbing or cyanosis. trace edema at the hands. SKIN: No rash. NEUROLOGIC: No gross focal findings. PSYCHIATRIC: The patient is calm. IMPRESSION: 1. Bilateral lung infiltrates, probably secondary to pneumonia. The patient very likely aspirated. He also likely has an ARDS component. 2. Acute respiratory failure. The patient is status post extubation. 3. Seizure disorder. Lumbar puncture suggests no infection as the cause of the seizure; however, there are still some studies pending including HSV in spinal fluid. 4. Fever, probably secondary to pneumonia or aspiration. Clinically improved. RECOMMENDATIONS: 1. Continue piperacillin / tazobactam. 2. Continue azithromycin. 3. Monitor blood cultures. Ed Slater MD Jun 12, 2017 11:06
--- NOTE | 2017-06-12 11:32 | HHI.PR ---
Subjective Remarks The patient just had his swallow evaluation done and was quite nauseous from it. He has some abdominal cramping. He says his breathing is fine. He has not been very ambulatory. Discussed with nursing and family at the bedside. Objective Vitals Vital Signs Date Time Temp Pulse Resp B/P (MAP) Pulse Ox O2 Delivery O2 Flow Rate FiO2 06/12/17 10:00 79 06/12/17 08:18 98 Nasal Cannula 4.00 06/12/17 08:00 98.3 72 28 127/84 (98) 99 06/12/17 08:00 72 06/12/17 06:00 69 06/12/17 04:00 88 06/12/17 04:00 97.6 88 33 137/87 (104) 91 06/12/17 02:00 91 06/12/17 00:06 25 06/12/17 00:00 92 06/12/17 00:00 97.8 92 25 144/71 (95) 95 06/11/17 23:54 95 Simple Mask 10.00 06/11/17 22:00 106 06/11/17 21:35 93 Nasal Cannula 5.00 06/11/17 20:00 99.0 89 30 151/97 (115) 97 06/11/17 20:00 89 06/11/17 18:00 100 06/11/17 16:00 103 06/11/17 16:00 102.2 103 22 144/82 (102) 95 06/11/17 14:00 99 06/11/17 12:00 124 06/11/17 12:00 101.6 124 25 147/103 (118) 95 I/O 06/11/17 06/11/17 06/11/17 06/12/17 06/12/17 06/12/17 07:00 15:00 23:00 07:00 15:00 23:00 Intake Total 334 ml 550 ml Output Total 900 ml 2000 ml 3050 ml 2500 ml Balance -900 ml -1666 ml -3050 ml -2500 ml 550 ml Intake IV Total 334 ml 550 ml Output Urine Total 900 ml 2000 ml 3050 ml 2500 ml # Bowel Movements 2 2 Result Diagram: 06/12/1751406/12/17514 Imaging Last Impressions Chest X-Ray 06/12/17599 Signed Impressions: Service Date/Time: Monday, June 12, 2017 02:48 - CONCLUSION: No significant change upper lobe predominant diffuse bilateral airspace opacities. Lonnie Horn MD Brain MRI 06/10/17 0000 Signed Impressions: Service Date/Time: Saturday, June 10, 2017 09:58 - CONCLUSION: Negative exam. Natalio Solorio MD Lumbar Puncture Fluoroscopy 06/09/17 0000 Signed Impressions: Service Date/Time: May 15:34 - CONCLUSION: Uncomplicated fluoroscopically guided lumbar puncture with pressures as above. Ang Wray MD Head CT 06/08/172226 Signed Impressions: Service Date/Time: Thursday, June 08, 2017 23:25 - CONCLUSION: Normal examination. Loki Pitts MD Chest CT 06/08/17 0000 Signed Impressions: Service Date/Time: Thursday, June 08, 2017 23:28 - CONCLUSION: 1. 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 Loki Pitts MD Objective Remarks GENERAL: Nauseous, uncomfortably. SKIN: Warm and clammy. HEAD: Normocephalic. EYES: No scleral icterus. No injection or drainage. NECK: trachea midline. No JVD CARDIOVASCULAR: Tachycardic, no murmurs. RESPIRATORY: Bilateral rales. GASTROINTESTINAL: Abdomen soft, non-tender, nondistended. MUSCULOSKELETAL: No significant peripheral edema NEURO: Follows commands. PSYCH: Mood and affect appropriate. Medications and IVs Current Medications Medications (Trade) Dose Ordered Sig/Bebe Route Start Time Stop Time Status Last Admin Piperacillin Sod/ Tazobactam Sod 100 ml @ 200 mls/hr Q6H IV 06/09/17 00:00 06/12/17 05:44 Azithromycin 500 mg/Sodium Chloride 250 ml @ 250 mls/hr Q24H IV 06/09/17 01:00 06/12/17 00:05 Sodium Chloride 1,000 ml @ 50 mls/hr Q20H IV 06/08/17 23:25 06/12/17 04:13 (NS Flush) 2 ml UNSCH PRN IV FLUSH 06/08/17 23:30 06/11/17 17:15 (NS Flush) 2 ml BID IV FLUSH 06/09/17 09:00 06/12/17 09:04 (Zofran Inj) 4 mg Q6H PRN IV PUSH 06/08/17 23:30 06/12/17 00:19 (Duoneb Neb) 1 ampule Q6HR NEB INH 06/09/17 04:00 06/12/17 08:18 Miscellaneous Information 1 Q361D XX 06/08/17 23:30 06/08/17 23:30 (Chlorhexidine 2% Cloth) 3 pack Taper DAILY@04 TOP 06/09/17 04:00 06/05/18 03:59 06/12/17 04:00 (Chlorhexidine 2% Cloth) 3 pack UNSCH PRN TOP 06/08/17 23:30 (Stephanie-Colace) 1 tab BID PO 06/09/17 09:00 06/10/17 20:41 (Milk Of Magnesia Liq) 30 ml Q12H PRN PO 06/08/17 23:30 (Senokot) 17.2 mg Q12H PRN PO 06/08/17 23:30 (Dulcolax Supp) 10 mg DAILY PRN RECTAL 06/08/17 23:30 (Lactulose Liq) 30 ml DAILY PRN PO 06/08/17 23:30 (Peridex 0.12% Liq) 15 ml BID@08,20 MT 06/09/17 08:00 06/11/17 19:52 Levetriacetam 500 mg/Sodium Chloride 105 ml @ 420 mls/hr Q12HR IV 06/09/17 09:00 06/12/17 09:04 (Brethine Inj) 1 mg UNSCH PRN SQ 06/09/17 02:45 (Albuterol Neb) 2.5 mg Q2HR NEB PRN NEB 06/09/17 13:15 (Tylenol 650 Mg/ 20 ml Liq) 650 mg Q6H PRN NG 06/09/17 13:15 (Melatonin) 5 mg HS PO 06/10/17 21:00 06/10/17 20:44 (Haldol Inj) 5 mg Q4H PRN IV 06/10/17 16:45 Dexmedetomidine HCl 1000 mcg/ Sodium Chloride 250 ml @ 18.87 mls/ hr TITRATE IV 06/10/17 18:45 06/10/17 20:44 Potassium Chloride 100 ml @ 50 mls/hr Q2H PRN IV 06/12/17 02:15 06/12/17 02:56 Potassium Chloride 100 ml @ 50 mls/hr Q2H PRN IV 06/12/17 02:15 (K-Lyte Cl Eff) 50 meq UNSCH PRN PO 06/12/17 02:15 Potassium Chloride 100 ml @ 25 mls/hr UNSCH PRN IV 06/12/17 02:15 Potassium Chloride 100 ml @ 50 mls/hr Q2H PRN IV 06/12/17 02:15 Magnesium Sulfate 4 gm/Sodium Chloride 100 ml @ 50 mls/hr UNSCH PRN IV 06/12/17 02:15 (Mag-Ox) 800 mg UNSCH PRN PO 06/12/17 02:15 Magnesium Sulfate 2 gm/Sodium Chloride 100 ml @ 50 mls/hr UNSCH PRN IV 06/12/17 02:15 (K-Phos) 2,000 mg Q4H PRN PO 06/12/17 02:15 Sodium Phosphate 30 mmol/Sodium Chloride 250 ml @ 42 mls/hr UNSCH PRN IV 06/12/17 02:15 (K-Phos) 2,000 mg UNSCH PRN PO/TUBE 06/12/17 02:15 Potassium Phosphate 30 mmol/ Sodium Chloride 260 ml @ 42 mls/hr UNSCH PRN IV 06/12/17 02:15 Date of Insertion: Jun 09, 2017 Line: Central Venous Catheter Side: Right Location: Subclavian A/P Assessment and Plan Seizure Presents with new-onset seizures, acute hypoxic respiratory failure, and bilateral pulmonary infiltrates. Neurology consult appreciated. EEG completed - encephalopathy. no epileptic activity. CT brain revealed no acute intracranial findings. MRI brain- no acute disease. LP not consistent with infectious etiology. - Levetiracetam 500 mg IV twice a day. - Neurology following. Acute hypoxic and hypercarbic respiratory failure Pulmonology consult appreciated. 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 - Albuterol/ipratropium aerosols every 6 hours with albuterol aerosols every 2 hours. - pulmonology following. - f/u ANCA, urine histo Ag. - continue Zosyn and azithromycin (day 5). Elevated CPK S/t seizure. - IVFs. - trend CPK. N/V The pt has been vomiting. - check LFTs, lipase, KUB. - diet advanced to mechanical soft per ST. Acute kidney injury Resolved with IVFs. - continue IVFs and monitor. - d/c David. PPx: SCDs Discharge Planning Transfer to floor Raul Garibay DO Jun 12, 2017 11:32
[2017-06-12] MEDS: ACETAMINOPHEN 650 MG/20.3 ML UDC NG PRN ×2 (11:55→20:36)
--- NOTE | 2017-06-12 12:52 | RADRPT ---
EXAM DATE/TIME: 06/12/2017 11:28 [facility] COMPARISON: No previous studies available for comparison. INDICATIONS : Nausea and abdominal pain. Vomited once during swallow test. MEDICAL HISTORY : Seizures. SURGICAL HISTORY : None. ENCOUNTER: Initial ACUITY: 2 days PAIN SCORE: 6/10 LOCATION: Left upper abdomen. FINDINGS: Supine view of the abdomen was performed. The abdominal bowel gas pattern is normal. No abnormal ma sses, calcifications, or organomegaly is seen. The osseous structures are unremarkable. CONCLUSION: Unremarkable nonobstructive bowel gas pattern. Raul Quiñones MD on June 12, 2017 at 12:50 Board Certified Radiologist. This report was verified electronically.
[2017-06-12 13:39] LABS: ALBUMIN 3.1 GM/DL (3.4-5.0); DIRECT BILIRUBIN ADULT 0.2 MG/DL (0.0-0.2)
[2017-06-12 14:11] LABS: INDIRECT BILIRUBIN 0.8 MG/DL (0.0-0.8)
--- NOTE | 2017-06-12 15:17 | HHI.PR ---
Subjective Remarks 21 YOWM with RF, SZ Feels better weaned to 4LNC, sat 99% Breathing better Blood tinge small amount of sp Objective Vital Signs Vital Signs Date Time Temp Pulse Resp B/P (MAP) Pulse Ox O2 Delivery O2 Flow Rate FiO2 06/12/17 14:00 62 06/12/17 12:55 13 06/12/17 12:00 54 06/12/17 12:00 98.6 54 20 124/89 (101) 87 06/12/17 10:00 79 06/12/17 08:18 98 Nasal Cannula 4.00 06/12/17 08:00 98.3 72 28 127/84 (98) 99 06/12/17 08:00 72 06/12/17 06:00 69 06/12/17 04:00 88 06/12/17 04:00 97.6 88 33 137/87 (104) 91 06/12/17 02:00 91 06/12/17 00:06 25 06/12/17 00:00 92 06/12/17 00:00 97.8 92 25 144/71 (95) 95 06/11/17 23:54 95 Simple Mask 10.00 06/11/17 22:00 106 06/11/17 21:35 93 Nasal Cannula 5.00 06/11/17 20:00 99.0 89 30 151/97 (115) 97 06/11/17 20:00 89 06/11/17 18:00 100 06/11/17 16:00 103 06/11/17 16:00 102.2 103 22 144/82 (102) 95 I/O 06/11/17 06/11/17 06/11/17 06/12/17 06/12/17 06/12/17 07:00 15:00 23:00 07:00 15:00 23:00 Intake Total 334 ml 650 ml Output Total 900 ml 2000 ml 3050 ml 2500 ml Balance -900 ml -1666 ml -3050 ml -2500 ml 650 ml Intake IV Total 334 ml 650 ml Output Urine Total 900 ml 2000 ml 3050 ml 2500 ml # Bowel Movements 2 2 Result Diagram: 06/12/1751406/12/17514 Objective Remarks GENERAL: WBWN WM, mild sob SKIN: Warm and dry. HEAD: Normocephalic. EYES: No scleral icterus. No injection or drainage. NECK: Supple, trachea midline. No JVD or lymphadenopathy. CARDIOVASCULAR: Regular rate and rhythm without murmurs, gallops, or rubs. RESPIRATORY: Breath sounds equal bilaterally. No accessory muscle use. Bilat rales GASTROINTESTINAL: Abdomen soft, non-tender, nondistended. MUSCULOSKELETAL: No cyanosis, or edema. BACK: Nontender without obvious deformity. No CVA tenderness. A/P Assessment and Plan Resp Failure, s/p extubation Bilat lung infilt, ? aspiration Fever Sz disorder PLAN: Supplement 02, keep sat >92% check cultures check Histo titer Abx Zosyn and Zithro. Stable from pulm standpoint to tr to Floor. Pedro Meade MD Jun 12, 2017 15:17
[2017-06-12] MEDS: SODIUM BICARBONATE 8.4% INJ 100 MEQ in DEXTROSE 5% IN WATE 1000ML INJ 1,000 ML IV SCH ×2 (20:14)
[2017-06-12] MEDS: MELATONIN 5 MG TAB PO SCH (20:15)
[2017-06-12] MEDS: PROMETHAZINE HCL 25 MG TAB PO PRN (20:36)
[2017-06-13] VITALS (18 sets, daily range): BP systolic 135–153; BP diastolic 76–100; PULSE 54–90; RESP 14–35; TEMP 97.1–99.4; O2SAT 94–99
[2017-06-13] MEDS: AZITHROMYCIN INJ 500 MG in SODIUM CHLOR 0.9% 250 ML INJ 250 ML IV SCH (00:26)
[2017-06-13] MEDS: PIPERACIL-TAZO 4.5 GM PREMIX 100 ML IV SCH ×5 (00:27→23:10)
[2017-06-13] MEDS: CHLORHEXIDINE GLUCONATE 2 % 1 PACK (2 CLOTHS) TOP SCH (03:19)
[2017-06-13] MEDS: RESP: ALBUTEROL 2.5 MG/IPRATROPIUM 0.5 MG NEB (SCH) INH (03:36)
[2017-06-13 07:47] LABS: HEMATOCRIT 36.8 % (39.0-51.0); HEMOGLOBIN 12.9 GM/DL (13.0-17.0); MEAN CELL VOLUME 85.3 FL (80.0-100.0); MEAN CORPUSCULAR HEMOGLOBIN 29.8 PG (27.0-34.0); MEAN CORPUSCULAR HGB CONC 34.9 % (32.0-36.0); MEAN PLATELET VOLUME 9.7 FL (7.0-11.0); PLATELET COUNT 206 TH/MM3 (150-450); RED BLOOD COUNT 4.32 MIL/MM3 (4.50-5.90); RED CELL DISTRIBUTION WIDTH 13.2 % (11.6-17.2); WHITE BLOOD COUNT 7.4 TH/MM3 (4.0-11.0)
[2017-06-13] MEDS: CHLORHEXIDINE 0.12% (ORAL KIT) 15 ML CUP MT SCH ×2 (08:00→20:00)
[2017-06-13 08:09] LABS: BICARBONATE 26.7 MEQ/L (21.0-32.0); BLOOD UREA NITROGEN 7 MG/DL (7-18); CALCIUM 8.8 MG/DL (8.5-10.1); CHLORIDE 103 MEQ/L (98-107); CREATININE 0.85 MG/DL (0.60-1.30); GLOMERULAR FILTRATION RATE 113 ML/MIN (>89); GLUCOSE,RANDOM 153 MG/DL (74-106); SODIUM (NA) 138 MEQ/L (136-145)
[2017-06-13] MEDS: PROMETHAZINE HCL 25 MG TAB PO PRN ×2 (08:22→20:56)
[2017-06-13] MEDS: ACETAMINOPHEN 650 MG/20.3 ML UDC NG PRN ×3 (08:22→18:12)
[2017-06-13] MEDS: DOCUSATE SODIUM 50 MG/SENNA 8.6 MG TAB PO SCH ×2 (08:23→20:58)
[2017-06-13] MEDS: levETIRAcetam INJ 500 MG in SODIUM CHLORIDE 0.9% INJ 100 ML IV SCH ×2 (08:23→20:57)
[2017-06-13] MEDS: SODIUM CHLORIDE 0.9% FLUSH 10 ML FLUSH IV FLUSH SCH ×2 (08:24→20:58)
[2017-06-13] MEDS: SODIUM BICARBONATE 8.4% INJ 100 MEQ in DEXTROSE 5% IN WATE 1000ML INJ 1,000 ML IV SCH ×4 (10:29→10:30)
--- NOTE | 2017-06-13 10:34 | HHI.PR ---
Subjective Remarks Follow-up for new onset seizure Patient complaining of being nauseated. Patient stated that he is nausea all the time. Denies any abdominal pain. Patient has regular bowel movements. Patient's mother and father interjects multiple times during interview. They stated that patient is only nauseous after eating food. No episode of seizures. Patient's nurse is also at bedside during the interview. Objective Vitals Vital Signs Date Time Temp Pulse Resp B/P (MAP) Pulse Ox O2 Delivery O2 Flow Rate FiO2 06/13/17 06:00 69 06/13/17 04:00 74 06/13/17 04:00 97.1 74 26 138/100 (113) 94 06/13/17 02:00 83 06/13/17 00:00 97.6 76 35 138/80 (99) 98 06/13/17 00:00 75 06/12/17 22:00 65 06/12/17 21:36 30 06/12/17 21:01 95 21 06/12/17 20:00 64 06/12/17 20:00 97.2 64 23 141/83 (102) 91 06/12/17 18:00 61 06/12/17 16:00 88 06/12/17 16:00 98.0 88 27 147/89 (108) 95 06/12/17 14:00 62 06/12/17 12:00 54 06/12/17 12:00 98.6 54 20 124/89 (101) 87 I/O 06/12/17 06/12/17 06/12/17 06/13/17 06/13/17 06/13/17 07:00 15:00 23:00 07:00 15:00 23:00 Intake Total 650 ml 504 ml 1237 ml Output Total 2500 ml 300 ml 900 ml Balance -2500 ml 650 ml 204 ml 337 ml Intake Oral 75 ml 240 ml IV Total 650 ml 429 ml 997 ml Output Urine Total 2500 ml 300 ml 900 ml # Voids 1 3 # Bowel Movements 2 3 1 Result Diagram: 06/13/1763206/13/17632 Objective Remarks GENERAL: in NAD but doesn't look comfortable he said because he feels nauseous CARDIOVASCULAR: Regular rate and rhythm without murmurs, gallops, or rubs. RESPIRATORY: Breath sounds equal bilaterally. No accessory muscle use. GASTROINTESTINAL: Abdomen soft, non-tender, nondistended. MUSCULOSKELETAL: No cyanosis, or edema. BACK: Nontender without obvious deformity. No CVA tenderness. Medications and IVs Current Medications IV Flush (NS Flush) 2 ml UNSCH PRN IV FLUSH FLUSH AFTER USING IV ACCESS; Start 06/08/17 at 22:30; Stop 06/08/17 at 23:33; Status DC Sodium Chloride 1,000 ml @ 1,000 mls/hr Q1H IV Last administered on 23:52; Start 06/08/17 at 22:27; Stop 06/08/17 at 23:26; Status DC Succinylcholine Chloride (Quelicin Inj) 100 mg ONCE ONCE IV PUSH Last administered on 06/08/17 22:14; Start 06/08/17 at 22:30; Stop 06/08/17 at 22 :32; Status DC Etomidate (Amidate Inj) 20 mg ONCE ONCE IV PUSH Last administered on 22:14; Start 06/08/17 at 22:30; Stop 06/08/17 at 22:32; Status DC Propofol (Diprivan 200 Mg/20 ml Inj) 50 mg ONCE ONCE IV Last administered on 06/08/17 23:03; Start 06/08/17 at 22:30; Stop 06/08/17 at 22:32; Status DC Vecuronium [place] (Norcuron 10 Mg Inj) 10 mg ONCE ONCE IV PUSH Last administered on 06/08/17 22:23; Start 06/08/17 at 22:30; Stop 06/08/17 at 22 :32; Status DC Propofol 100 ml @ 2.4 mls/hr TITRATE PRN IV Ordered RASS; Start 06/08/17 at 22:30; Stop 06/08/17 at 23:39; Status DC Midazolam HCl (Versed Inj) 5 mg STK-MED ONCE .ROUTE ; Start 06/08/17 at 23:01; Stop 06/08/17 at 23:02; Status DC Midazolam HCl (Versed Inj) 4 mg ONCE ONCE IV PUSH Last administered on 23:03; Start 06/08/17 at 23:15; Stop 06/08/17 at 23:16; Status DC Propofol (Diprivan 200 Mg/20 ml Inj) 50 mg ONCE ONCE IV Last administered on 06/08/17 22:21; Start 06/08/17 at 23:15; Stop 06/08/17 at 23:16; Status DC Levetriacetam 1000 mg/Sodium Chloride 110 ml @ 420 mls/hr BOLUS ONCE IV Last administered on 06/09/17 00:00; Start 06/08/17 at 23:15; Stop 06/08/17 at 23 :30; Status DC Midazolam HCl (Versed Inj) 5 mg STK-MED ONCE .ROUTE ; Start 06/08/17 at 23:13; Stop 06/08/17 at 23:14; Status DC Piperacillin Sod/ Tazobactam Sod 100 ml @ 200 mls/hr Q6H IV Last administered on 06/13/17 05:48; Start 06/09/17 at 00:00 Azithromycin 500 mg/Sodium Chloride 250 ml @ 250 mls/hr Q24H IV Last administered on 06/13/17 00:26; Start 06/09/17 at 01:00 Sodium Chloride 1,000 ml @ 50 mls/hr Q20H IV Last administered on 06/12/17 04:13; Start 06/08/17 at 23:25; Stop 06/12/17 at 18:40; Status DC Sodium Chloride (NS Flush) 2 ml UNSCH PRN IV FLUSH FLUSH AFTER USING IV ACCESS Last administered on 06/11/17 17:15; Start 06/08/17 at 23:30 Sodium Chloride (NS Flush) 2 ml BID IV FLUSH Last administered on 06/13/17 08 :24; Start 06/09/17 at 09:00 Acetaminophen (Tylenol) 650 mg Q6H PRN PO PAIN 1-5 AND/OR FEVER >101F; Start 06/08/17 at 23:30; Stop 06/09/17 at 13:16; Status DC Morphine Sulfate (Morphine Inj) 2 mg Q2H PRN IV PUSH PAIN SCALE 6 TO 10 Last administered on 06/12/17 00:01; Start 06/08/17 at 23:30; Stop 06/12/17 at 02 :29; Status DC Pantoprazole Sodium (Protonix Inj) 40 mg DAILY IV PUSH Last administered on 08:04; Start 06/09/17 at 09:00; Stop 06/11/17 at 06:53; Status DC Lorazepam (Ativan Inj) 1 mg Q1H PRN IV PUSH Agitation/Sedation; Start at 23:30; Stop 06/11/17 at 06:53; Status DC Ondansetron HCl (Zofran Inj) 4 mg Q6H PRN IV PUSH NAUSEA OR VOMITING Last administered on 06/12/17 14:38; Start 06/08/17 at 23:30 Albuterol/ Ipratropium (Duoneb Neb) 1 ampule Q6HR NEB INH Last administered on 06/12/17 21:01; Start 06/09/17 at 04:00; Stop 06/13/17 at 03:59; Status DC Albuterol/ Ipratropium (Duoneb Neb) 1 ampule Q2HR NEB PRN INH WHEEZING; Start 06/08/17 at 23:30; Stop 06/09/17 at 13:11; Status DC Miscellaneous Information 1 [id number] Last administered on 06/08/17 23:30; Start 06/08/17 at 23:30 Chlorhexidine Gluconate (Chlorhexidine 2% Cloth) 3 pack Taper DAILY@04 TOP Last administered on 06/13/17 03:19; Start 06/09/17 at 04:00; Stop 06/05/18 at 03:59 Chlorhexidine Gluconate (Chlorhexidine 2% Cloth) 3 pack UNSCH PRN TOP HYGIENIC CARE; Start 06/08/17 at 23:30 Senna/Docusate Sodium (Stephanie-Colace) 1 tab BID PO Last administered on 20:15; Start 06/09/17 at 09:00 Magnesium Hydroxide (Milk Of Magnesia Liq) 30 ml Q12H PRN PO Mild constipation ; Start 06/08/17 at 23:30 Sennosides (Senokot) 17.2 mg Q12H PRN PO Moderate constipation; Start at 23:30 Bisacodyl (Dulcolax Supp) 10 mg DAILY PRN RECTAL SEVERE CONSITIPATION; Start 06/08/17 at 23:30 Lactulose (Lactulose Liq) 30 ml DAILY PRN PO SEVERE CONSITIPATION; Start 06/08 at 23:30 Chlorhexidine Gluconate (Peridex 0.12% Liq) 15 ml BID@08,20 MT Last administered on 06/12/17 20:00; Start 06/09/17 at 08:00 Propofol 100 ml @ 2.4 mls/hr TITRATE PRN IV SEDATION Last administered on 06:51; Start 06/08/17 at 23:30; Stop 06/11/17 at 06:53; Status DC Midazolam HCl 100 ml @ 2 mls/hr TITRATE PRN IV SEDATION Last administered on 05:35; Start 06/08/17 at 23:30; Stop 06/11/17 at 06:53; Status DC Fentanyl Citrate 250 ml @ 5 mls/hr TITRATE PRN IV SEDATION Last administered on 06/09/17 01:32; Start 06/08/17 at 23:30; Stop 06/11/17 at 06:53; Status DC Levetriacetam 500 mg/Sodium Chloride 105 ml @ 420 mls/hr Q12HR IV Last administered on 06/13/17 08:23; Start 06/09/17 at 09:00 Midazolam HCl 100 ml @ As Directed STK-MED ONCE .ROUTE ; Start 06/09/17 at 00: 43; Stop 06/09/17 at 00:44; Status DC Fentanyl Citrate 250 ml @ As Directed STK-MED ONCE .ROUTE ; Start 06/09/17 at 00:45; Stop 06/09/17 at 00:46; Status DC Dopamine HCl/ Dextrose 500 ml @ 9 mls/hr TITRATE PRN IV Blood Pressure Management; Start 06/09/17 at 02:45; Stop 06/10/17 at 15:32; Status DC Terbutaline Sulfate (Brethine Inj) 1 mg UNSCH PRN SQ For Extravasation; Start 06/09/17 at 02:45 Albuterol Sulfate (Albuterol Neb) 2.5 mg Q2HR NEB PRN NEB dyspnea; Start 06/09 at 13:15 Acetaminophen (Tylenol 650 Mg/ 20 ml Liq) 650 mg Q6H PRN NG fever and pain 1- 10 Last administered on 06/13/17 08:22; Start 06/09/17 at 13:15 Rocuronium [place] (Zemuron Inj) 50 mg STK-MED ONCE .ROUTE ; Start 06/09/17 at 16:00; Stop 06/09/17 at 16:01; Status DC Rocuronium [place] (Zemuron Inj) 100 mg BOLUS ONCE IV ; Start 06/09/17 at 16: 00; Stop 06/09/17 at 16:05; Status DC Potassium Chloride 100 ml @ 50 mls/hr Q2H PRN IV For Potassium 2.8 - 3.2 mEq/L ; Start 06/09/17 at 16:00; Stop 06/12/17 at 02:22; Status DC Potassium Chloride 100 ml @ 50 mls/hr Q2H PRN IV For Potassium 2.8 - 3.2 mEq/L ; Start 06/09/17 at 16:00; Stop 06/12/17 at 02:22; Status DC Potassium Bicarb/ Potassium Chloride (K-Lyte Cl Eff) 50 meq UNSCH PRN PO For Potassium 3.3 - 3.5 mEq/L; Start 06/09/17 at 16:00; Stop 06/12/17 at 02:22; Status DC Potassium Chloride 100 ml @ 25 mls/hr UNSCH PRN IV For Potassium 3.3 - 3.5 mEq /L; Start 06/09/17 at 16:00; Stop 06/12/17 at 02:22; Status DC Potassium Chloride 100 ml @ 50 mls/hr Q2H PRN IV For Potassium 3.3 - 3.5 mEq/L ; Start 06/09/17 at 16:00; Stop 06/12/17 at 02:22; Status DC Magnesium Sulfate 4 gm/Sodium Chloride 100 ml @ 50 mls/hr UNSCH PRN IV For Magnesium 0.9 - 1.1 mg/dL; Start 06/09/17 at 16:00; Stop 06/12/17 at 02:22; Status DC Magnesium Oxide (Mag-Ox) 800 mg UNSCH PRN PO For Magnesium 1.2 - 1.6 mg/dL; Start 06/09/17 at 16:00; Stop 06/12/17 at 02:22; Status DC Magnesium Sulfate 2 gm/Sodium Chloride 100 ml @ 50 mls/hr UNSCH PRN IV For Magnesium 1.2 - 1.6 mg/dL; Start 06/09/17 at 16:00; Stop 06/12/17 at 02:22; Status DC Potassium Phosphate (K-Phos) 2,000 mg Q4H PRN PO For Phosphorus < 2.5 mg/dL; Start 06/09/17 at 16:00; Stop 06/12/17 at 02:22; Status DC Sodium Phosphate 30 mmol/Sodium Chloride 250 ml @ 42 mls/hr UNSCH PRN IV For Phosphorus < 2.5 mg/dL; Start 06/09/17 at 16:00; Stop 06/12/17 at 02:22; Status DC Potassium Phosphate (K-Phos) 2,000 mg UNSCH PRN PO/TUBE SEE LABEL COMMENTS; Start 06/09/17 at 16:00; Stop 06/12/17 at 02:22; Status DC Potassium Phosphate 30 mmol/ Sodium Chloride 260 ml @ 42 mls/hr UNSCH PRN IV SEE LABEL COMMENTS Last administered on 06/11/17 10:48; Start 06/09/17 at 16: 00; Stop 06/12/17 at 02:22; Status DC Dexmedetomidine HCl 50 ml @ 18.875 mls/ hr TITRATE IV ; Start 06/10/17 at 17: 00; Stop 06/10/17 at 17:00; Status DC Quetiapine Fumarate (SEROquel) 50 mg Q8HR PO Last administered on 06/10/17 20 :44; Start 06/10/17 at 16:45; Stop 06/11/17 at 06:53; Status DC Melatonin (Melatonin) 5 mg HS PO Last administered on 06/12/17 20:15; Start 06/10/17 at 21:00 Haloperidol Lactate (Haldol Inj) 5 mg Q4H PRN IV agitation; Start 06/10/17 at 16:45; Stop 06/12/17 at 18:40; Status DC Dexmedetomidine HCl 200 mcg/ Sodium Chloride 52 ml @ 19.63 mls/ hr TITRATE IV ; Start 06/10/17 at 17:00; Stop 06/10/17 at 18:44; Status DC Dexmedetomidine HCl 1000 mcg/ Sodium Chloride 250 ml @ 18.87 mls/ hr TITRATE IV Last administered on 06/10/17 20:44; Start 06/10/17 at 18:45; Stop 06/12 at 12:21; Status DC Potassium Chloride 100 ml @ 50 mls/hr Q2H PRN IV For Potassium 2.8 - 3.2 mEq/ L Last administered on 06/12/17 02:56; Start 06/12/17 at 02:15 Potassium Chloride 100 ml @ 50 mls/hr Q2H PRN IV For Potassium 2.8 - 3.2 mEq/L ; Start 06/12/17 at 02:15 Potassium Bicarb/ Potassium Chloride (K-Lyte Cl Eff) 50 meq UNSCH PRN PO For Potassium 3.3 - 3.5 mEq/L; Start 06/12/17 at 02:15 Potassium Chloride 100 ml @ 25 mls/hr UNSCH PRN IV For Potassium 3.3 - 3.5 mEq /L; Start 06/12/17 at 02:15 Potassium Chloride 100 ml @ 50 mls/hr Q2H PRN IV For Potassium 3.3 - 3.5 mEq/L ; Start 06/12/17 at 02:15 Magnesium Sulfate 4 gm/Sodium Chloride 100 ml @ 50 mls/hr UNSCH PRN IV For Magnesium 0.9 - 1.1 mg/dL; Start 06/12/17 at 02:15 Magnesium Oxide (Mag-Ox) 800 mg UNSCH PRN PO For Magnesium 1.2 - 1.6 mg/dL; Start 06/12/17 at 02:15 Magnesium Sulfate 2 gm/Sodium Chloride 100 ml @ 50 mls/hr UNSCH PRN IV For Magnesium 1.2 - 1.6 mg/dL; Start 06/12/17 at 02:15 Potassium Phosphate (K-Phos) 2,000 mg Q4H PRN PO For Phosphorus < 2.5 mg/dL; Start 06/12/17 at 02:15 Sodium Phosphate 30 mmol/Sodium Chloride 250 ml @ 42 mls/hr UNSCH PRN IV For Phosphorus < 2.5 mg/dL; Start 06/12/17 at 02:15 Potassium Phosphate (K-Phos) 2,000 mg UNSCH PRN PO/TUBE SEE LABEL COMMENTS; Start 06/12/17 at 02:15 Potassium Phosphate 30 mmol/ Sodium Chloride 260 ml @ 42 mls/hr UNSCH PRN IV SEE LABEL COMMENTS; Start 06/12/17 at 02:15 Sodium Bicarbonate 100 meq/Dextrose 1,100 ml @ 150 mls/hr Q7H20M IV Last administered on 06/12/17t 20:14; Start 06/12/17 at 19:00 Promethazine HCl (Phenergan) 25 mg Q6H PRN PO nausea Last administered on 06/13t 08:22; Start 06/12/17 at 18:45 Promethazine HCl (Phenergan Supp) 25 mg Q4H PRN RECTAL nausea/vomiting; Start 06/13/17 at 08:30 Date of Insertion: Jun 09, 2017 Line: Central Venous Catheter Side: Right Location: Subclavian A/P Assessment and Plan 21-year-old male history of polysubstance abuse who presented with new onset seizure Seizure Presents with new-onset seizures, acute hypoxic respiratory failure, and bilateral pulmonary infiltrates. Neurology consult appreciated. EEG completed - encephalopathy. no epileptic activity. CT brain revealed no acute intracranial findings. MRI brain- no acute disease. LP not consistent with infectious etiology. Urine drug screen positive for cannabis otherwise negative. -Currently on Levetiracetam 500 mg IV twice a day. - Neurology following and thinks it may be secondary to stopping Xanax. Acute hypoxic and hypercarbic respiratory failure Pulmonology consult appreciated. 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 Most likely secondary to aspiration pneumonia. - Albuterol/ipratropium aerosols every 6 hours with albuterol aerosols every 2 hours. - pulmonology following. - f/u ANCA, urine histo Ag. - continue Zosyn and azithromycin Elevated CPK S/t seizure. - IVFs. - trend CPK. N/V -LFTs mildly elevated. KUB negative. Will repeat LFTs, lipase, obtain ultrasound the gallbladder. -Keep patient nothing by mouth except for medication. Acute kidney injury Resolved with IVFs. - continue IVFs and monitor. - d/c David. PPx: Niurka Ennis MD Jun 13, 2017 10:34
[2017-06-13] MEDS: PROMETHAZINE HCL 25 MG SUPP RECTAL PRN ×2 (10:58→21:15)
[2017-06-13 11:10] LABS: DIRECT BILIRUBIN ADULT 0.2 MG/DL (0.0-0.2)
[2017-06-13 11:14] LABS: ALBUMIN 3.1 GM/DL (3.4-5.0); ALT (GPT) 76 U/L (12-78); AST (GOT) 113 U/L (15-37)
[2017-06-13 11:16] LABS: ALKALINE PHOSPHATASE 50 U/L (45-117); TOTAL BILIRUBIN ADULT 0.7 MG/DL (0.2-1.0); TOTAL PROTEIN 6.9 GM/DL (6.4-8.2)
[2017-06-13 11:38] LABS: LYMPHOCYTES 12 % (9-44); MONOCYTES 12 % (0-8); NEUTROPHIL # MANUAL DIFF 5.3 TH/MM3 (1.8-7.7); POLYS (SEG NEUTROPHILS) 72 % (16-70)
--- NOTE | 2017-06-13 11:54 | HHI.IDPN ---
Note Infectious Disease Note Patient looks a bit lethargic/tired. On nasal canula. Noted by RN to have nausea. Family notes tongue smacking repeated activity. Denies chest pain or chills. Afebrile. Alert and oriented x 3. Denies drug use in recent weeks. PAST MEDICAL HISTORY Seizure. ALLERGIES: NO KNOWN DRUG ALLERGIES. ANTIBIOTICS: 1. Azithromycin. 2. Piperacillin / tazobactam. SOCIAL HISTORY: No tobacco use. Occasional alcohol use. Positive marijuana use. PHYSICAL EXAMINATION: GENERAL: No acute distress. HEAD, EYES, EARS, NOSE, THROAT: His head is atraumatic. The patient has a few red blotchy raised spots on the face. Extraocular movements grossly intact. Pupils reactive to light. No icterus. Oropharynx has no visible lesions. No thrush. NECK: Supple and without adenopathy. LUNGS: Diminished breath sounds. HEART: Regular S1-S2 without murmurs, rubs or gallops. ABDOMEN: Bowel sounds present, soft, flat, nontender. EXTREMITIES: No clubbing or cyanosis. trace edema at the hands. SKIN: No rash. NEUROLOGIC: Non focal. PSYCHIATRIC: The patient is calm. IMPRESSION: 1. Bilateral lung infiltrates, probably secondary to pneumonia. The patient very likely aspirated. He also likely has an ARDS component. 2. Acute respiratory failure. The patient is status post extubation. 3. Seizure disorder. Lumbar puncture suggests no infection as the cause of the seizure. 4. Fever, probably secondary to pneumonia or aspiration. Clinically improved. RECOMMENDATIONS: 1. Continue piperacillin / tazobactam. 2. Continue azithromycin. 3. Monitor blood cultures. Ed Slater MD Jun 13, 2017 11:54
[2017-06-13] MEDS: POTASSIUM CHLOR 20 MEQ PREMIX 100 ML IV PRN ×4 (13:08→23:10)
[2017-06-13] MEDS: ONDANSETRON HCL 4 MG/2 ML VIAL IV PUSH PRN ×2 (13:28→18:12)
--- NOTE | 2017-06-13 15:38 | RADRPT ---
EXAM DATE/TIME: 06/13/2017 12:51 [facility] COMPARISON: No previous studies available for comparison. INDICATIONS : Nausea and vomiting. MEDICAL HISTORY : Nausea and vomitting. Seizure. SURGICAL HISTORY : None. ENCOUNTER: Initial ACUITY: 1 day PAIN SCORE: 0/10 LOCATION: Right upper quadrant MEASUREMENTS: LIVER: 16.1 cm length COMMON DUCT: 4 mm RIGHT KIDNEY: 10.4 x 4.1 x 5.8 cm FINDINGS: Ultrasound of the upper abdomen demonstrates normal echogenicity of the liver. No intrahepatic or ext ra hepatic ductal dilatation is seen. There is hepatopedal flow through the portal vein. The gallbla dder is normal without wall thickening or pericholecystic fluid. A small right sided effusion is pres ent. CONCLUSION: 1. Unremarkable ultrasound examination of the abdomen. 2. Right effusion Humza Lindo MD on June 13, 2017 at 15:33 Board Certified Radiologist. This report was verified electronically.
[2017-06-13] MEDS: MELATONIN 5 MG TAB PO SCH (20:57)
--- NOTE | 2017-06-13 21:11 | HHI.PR ---
Subjective Remarks 21 YOWM with RF, SZ Feels better weanedto RA Breathing better Vomitted once Objective Vital Signs Vital Signs Date Time Temp Pulse Resp B/P (MAP) Pulse Ox O2 Delivery O2 Flow Rate FiO2 06/13/17 18:00 70 06/13/17 17:00 63 06/13/17 16:00 65 06/13/17 16:00 99.4 65 22 153/84 (107) 96 06/13/17 15:00 64 06/13/17 14:00 58 06/13/17 13:00 59 06/13/17 12:00 68 06/13/17 12:00 98.7 58 16 152/89 (110) 99 06/13/17 11:00 78 06/13/17 10:00 60 06/13/17 09:00 90 06/13/17 08:00 97.1 58 14 135/83 (100) 96 06/13/17 08:00 58 06/13/17 07:00 61 06/13/17 06:00 69 06/13/17 04:00 74 06/13/17 04:00 97.1 74 26 138/100 (113) 94 06/13/17 02:00 83 06/13/17 00:00 97.6 76 35 138/80 (99) 98 06/13/17 00:00 75 06/12/17 22:00 65 06/12/17 21:36 30 I/O 06/12/17 06/12/17 06/12/17 06/13/17 06/13/17 06/13/17 07:00 15:00 23:00 07:00 15:00 23:00 Intake Total 650 ml 504 ml 1237 ml 1305 ml 900 ml Output Total 2500 ml 300 ml 900 ml 1000 ml Balance -2500 ml 650 ml 204 ml 337 ml 1305 ml -100 ml Intake Oral 75 ml 240 ml 100 ml IV Total 650 ml 429 ml 997 ml 1305 ml 800 ml Output Urine Total 2500 ml 300 ml 900 ml 1000 ml # Voids 1 3 # Bowel Movements 2 3 1 2 Result Diagram: 06/13/1763206/13/17632 Objective Remarks GENERAL: WBWN WM, mild sob SKIN: Warm and dry. HEAD: Normocephalic. EYES: No scleral icterus. No injection or drainage. NECK: Supple, trachea midline. No JVD or lymphadenopathy. CARDIOVASCULAR: Regular rate and rhythm without murmurs, gallops, or rubs. RESPIRATORY: Breath sounds equal bilaterally. No accessory muscle use. Bilat rales GASTROINTESTINAL: Abdomen soft, non-tender, nondistended. MUSCULOSKELETAL: No cyanosis, or edema. BACK: Nontender without obvious deformity. No CVA tenderness. A/P Assessment and Plan Resp Failure, s/p extubation Bilat lung infilt, ? aspiration Fever Sz disorder PLAN: Stable on RA check cultures check Histo titer Abx Zosyn and Zithro. Stable from pulm standpoint to tr to Floor. Pedro Meade MD Jun 13, 2017 21:11
[2017-06-14] VITALS (20 sets, daily range): BP systolic 128–151; BP diastolic 69–93; PULSE 47–81; RESP 15–24; TEMP 97.7–98.6; O2SAT 83–98
[2017-06-14] MEDS: AZITHROMYCIN INJ 500 MG in SODIUM CHLOR 0.9% 250 ML INJ 250 ML IV SCH (00:05)
[2017-06-14] MEDS: ONDANSETRON HCL 4 MG/2 ML VIAL IV PUSH PRN ×3 (02:49→22:05)
[2017-06-14] MEDS: ACETAMINOPHEN 650 MG/20.3 ML UDC NG PRN ×4 (02:50→22:41)
[2017-06-14] MEDS: CHLORHEXIDINE GLUCONATE 2 % 1 PACK (2 CLOTHS) TOP SCH (04:00)
[2017-06-14] MEDS: PIPERACIL-TAZO 4.5 GM PREMIX 100 ML IV SCH ×4 (06:08→23:34)
[2017-06-14 07:27] LABS: HEMATOCRIT 38.1 % (39.0-51.0); HEMOGLOBIN 13.2 GM/DL (13.0-17.0); MEAN CELL VOLUME 85.8 FL (80.0-100.0); MEAN CORPUSCULAR HEMOGLOBIN 29.8 PG (27.0-34.0); MEAN CORPUSCULAR HGB CONC 34.7 % (32.0-36.0); PLATELET COUNT 252 TH/MM3 (150-450); RED BLOOD COUNT 4.44 MIL/MM3 (4.50-5.90)
[2017-06-14 07:48] LABS: BICARBONATE 23.3 MEQ/L (21.0-32.0); CALCIUM 8.9 MG/DL (8.5-10.1); CREATININE 0.98 MG/DL (0.60-1.30)
[2017-06-14] MEDS: CHLORHEXIDINE 0.12% (ORAL KIT) 15 ML CUP MT SCH ×2 (08:00→20:00)
[2017-06-14] MEDS: PROMETHAZINE HCL 25 MG SUPP RECTAL PRN (08:24)
[2017-06-14] MEDS: levETIRAcetam INJ 500 MG in SODIUM CHLORIDE 0.9% INJ 100 ML IV SCH ×2 (08:24→21:45)
[2017-06-14] MEDS: SODIUM CHLORIDE 0.9% FLUSH 10 ML FLUSH IV FLUSH SCH ×2 (08:24→21:45)
[2017-06-14] MEDS: DOCUSATE SODIUM 50 MG/SENNA 8.6 MG TAB PO SCH ×2 (08:24→21:00)
--- NOTE | 2017-06-14 09:54 | HHI.PR ---
Subjective Remarks quality review specialist Notes: 21-year-old presents by EMS from home. Patient was seen in the emergency room a few hours ago for seizure. Apparently does not have history of seizure even though after further conversation with the patient's mother he had episode of seizures a year ago when he was experimenting with alprazolam as a recreational supplement. He had a workup done and was discharged home. Per family when he got home after discharge he was complaining of chest congestion and shortness of breath that was progressively getting worse. His girlfriend who was with him noticed that he had another episode of seizure that lasted for 3 minutes. She called EMS. As per paramedics when they arrived he was confused and postictal. They took him into the ambulance and he started vomiting blood ? . however NG tube placed in the ED didn't reveal any blood or coffee-ground content in the stomach. Patient was slightly tachycardic but blood pressure stable. They said his GCS was 15 on route. When patient arrived to the ER he was confused and GCS was 14. He was hemodynamically stable. His oxygen saturation was 80% on nonrebreather. As per EMS they noticed that his oxygen saturation was in mid 70s on room air when they first put him on a monitor. As I was talking to the paramedics patient started to cough up blood. He was intubated for progressively worsening respiratory distress and hypoxemia by ED attending. 06/09: Remains on multiple sedation medications and dopamine. CT brain no acute findings. MRI brain ordered. EEG showed medication induced encephalopathy. 06/10: encephalopathy persists. on lightening of sedation, becomes very agitated. does withdraw to pain, and is purposeful, but not following commands. MRI brain wnl. I had a long discussion with the family where I re-confirmed no international travel. He did spend 1 summer in [place] on a farm, and they did note that the farm had bats. Otherwise, he was in his complete and full state of health up until the day of admission. he works out daily and had no problems going to the gym the day before presentation. no other associated recent symptoms. parents do say he gets stomach aches when he eats "lots of gluten" so he tries to avoid it when he can. they say he alternates between a "ketogenic"-type diet (although does not adhere strictly to this), and an Adkin' s-type diet. He does eat occasional carbs, but rarely. 06/11: extubated overnight. on NRB this AM. follows commands and answering some questions, but still dyspneic. legionella Ag negative. all cultures still NGTD. Hospitalist Notes: 06/14: Seen in his bedroom and discussed with nurse Miss Connor, complaint of Nausea, but no management for Acute Gastritis is suspected, started on Famotidine and Carafate, giving Electrolyte replacement, continue management by relocation services specialist and by ID specialist for his Bilateral Lung infiltrates and probable Aspiration Pneumonia. discussed in the room with his Father and Mother. Objective Vital Signs Date Time Temp Pulse Resp B/P (MAP) Pulse Ox O2 Delivery O2 Flow Rate FiO2 06/14/17 09:00 54 06/14/17 08:00 68 06/14/17 08:00 98.5 68 19 138/85 (102) 87 06/14/17 07:15 95 21 06/14/17 07:00 72 06/14/17 06:00 81 06/14/17 04:00 47 06/14/17 04:00 98.6 47 16 138/93 (108) 96 06/14/17 02:00 63 06/14/17 00:00 97.7 70 21 135/69 (91) 96 06/14/17 00:00 70 06/13/17 22:00 54 06/13/17 20:00 97.4 58 19 136/76 (96) 99 06/13/17 20:00 58 06/13/17 18:00 70 06/13/17 17:00 63 06/13/17 16:00 65 06/13/17 16:00 99.4 65 22 153/84 (107) 96 06/13/17 15:00 64 06/13/17 14:00 58 06/13/17 13:00 59 06/13/17 12:00 68 06/13/17 12:00 98.7 58 16 152/89 (110) 99 06/13/17 11:00 78 06/13/17 10:00 60 I/O 06/13/17 06/13/17 06/13/17 06/14/17 06/14/17 06/14/17 07:00 15:00 23:00 07:00 15:00 23:00 Intake Total 1237 ml 1305 ml 1000 ml 705 ml Output Total 900 ml 1000 ml 900 ml Balance 337 ml 1305 ml 0 ml -195 ml Intake Oral 240 ml 100 ml 50 ml IV Total 997 ml 1305 ml 900 ml 655 ml Output Urine Total 900 ml 1000 ml 900 ml # Voids 3 # Bowel Movements 1 2 1 Result Diagram: 06/14/17 0700 06/14/17 0700 Imaging Last Impressions Gall Bladder Ultrasound 06/13/17 0000 Signed Impressions: Service Date/Time: Tuesday, June 13, 2017 12:51 - CONCLUSION: 1. Unremarkable ultrasound examination of the abdomen. 2. Right effusion Humza Lindo MD Chest X-Ray 06/12/17 0600 Signed Impressions: Service Date/Time: Monday, June 12, 2017 02:48 - CONCLUSION: No significant change upper lobe predominant diffuse bilateral airspace opacities. Lonnie Horn MD Abdomen X-Ray 06/12/17 0000 Signed Impressions: Service Date/Time: Monday, June 12, 2017 11:28 - CONCLUSION: Unremarkable nonobstructive bowel gas pattern. Raul Quiñones MD Brain MRI 06/10/17 0000 Signed Impressions: Service Date/Time: Saturday, June 10, 2017 09:58 - CONCLUSION: Negative exam. Natalio Solorio MD Lumbar Puncture Fluoroscopy 06/09/17 0000 Signed Impressions: Service Date/Time: May 15:34 - CONCLUSION: Uncomplicated fluoroscopically guided lumbar puncture with pressures as above. Ang Wray MD Head CT 06/08/172226 Signed Impressions: Service Date/Time: Thursday, June 08, 2017 23:25 - CONCLUSION: Normal examination. Loki Pitts MD Chest CT 06/08/17 0000 Signed Impressions: Service Date/Time: Thursday, June 08, 2017 23:28 - CONCLUSION: 1. 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 Loki Pitts MD Procedures Endotracheal Intubation and Extubation. Other Results Laboratory Tests Test 06/08/17 22:40 06/08/17 22:41 06/09/17 01:30 06/09/17 07:57 Ammonia 21 MCMOL/L Troponin I LESS THAN 0.02 NG/ML Thyroid Stimulating Hormone 3rd Gen 1.020 uIU/ML Salicylates Level LESS THAN 1.7 MG/DL Acetaminophen Level LESS THAN 2.0 MCG/ML Ethyl Alcohol Level LESS THAN 3 MG/DL Urine Color LIGHT-YELLOW Urine Turbidity CLEAR Urine pH 5.5 Urine Specific [place] 1.016 Urine Protein TRACE mg/dL Urine Glucose (UA) TRACE mg/dL Urine Ketones 10 mg/dL Urine Occult Blood NEG Urine Nitrite NEG Urine Bilirubin NEG Urine Urobilinogen LESS THAN 2.0 MG/DL Urine Leukocyte Esterase NEG Urine RBC LESS THAN 1 /hpf Urine WBC 1 /hpf Urine Mucus FEW /lpf Microscopic Urinalysis Comment CATH-CULT NOT IND Urine Opiates Screen NEG Urine Barbiturates Screen NEG Urine Amphetamines Screen NEG Urine Benzodiazepines Screen NEG Urine Cocaine Screen NEG Urine Cannabinoids Screen POS Nasal Screen MRSA (PCR) MRSA NOT DETECTED Lactic Acid Level 1.9 mmol/L Test 06/09/17 14:33 06/09/17 16:19 06/09/17 17:55 06/10/17 17:00 Prothrombin Time 12.2 SEC Prothromb Time International Ratio 1.1 RATIO Activated Partial Thromboplast Time 32.1 SEC CSF Volume (Tube 1) 4.0 ML CSF Supernatant Color (tube 1) CLEAR CSF Gross Blood (Tube 1) 1+ CSF Volume (Tube 2) 3.5 ML CSF Supernatant Color (tube 2) CLEAR CSF Gross Blood (Tube 2) 1+ CSF Volume (Tube 3) 5.2 ML CSF Supernatant Color (tube 3) CLEAR CSF Gross Blood (Tube 3) 1+ CSF Volume (Tube 4) 5.9 ML CSF Supernatant Color (tube 4) CLEAR CSF Gross Blood (Tube 4) TRACE CSF WBC (Tube 4) 5 /MM3 CSF RBC (Tube 4) 30 /MM3 CSF Neutrophils 3 % CSF Lymphocytes 91 % CSF Monocytes 6 % CSF Glucose 55 MG/DL CSF Lactate Dehydrogenase 10 U/L CSF Total Protein 30.8 MG/DL Lactate Dehydrogenase 254 U/L Blood Smear Pathologist Review Erythrocyte Sedimentation Rate 14 mm/hr Test 06/10/17 22:45 06/11/17 05:00 06/11/17 05:21 06/12/17 05:15 Blood Gas Ventilator Setting PC/AC Neutrophils (%) (Auto) 78.3 % Lymphocytes (%) (Auto) 12.3 % Monocytes (%) (Auto) 5.8 % Eosinophils (%) (Auto) 3.0 % Basophils (%) (Auto) 0.6 % Neutrophils # (Auto) 7.8 TH/MM3 Lymphocytes # (Auto) 1.2 TH/MM3 Monocytes # (Auto) 0.6 TH/MM3 Eosinophils # (Auto) 0.3 TH/MM3 Basophils # (Auto) 0.1 TH/MM3 CBC Comment DIFF FINAL Blood Gas Puncture Site LT RADIAL Blood Gas Patient Temperature 98.6 Blood Gas HCO3 20 mmol/L Blood Gas Base Excess -4.0 mmol/L Blood Gas Oxygen Saturation 87 % Arterial Blood pH 7.38 Arterial Blood Partial Pressure CO2 35 mmHg Arterial Blood Partial Pressure O2 56 mmHg Arterial Blood Oxygen Content 14.9 Vol % Arterial Blood Carboxyhemoglobin 0.8 % Arterial Blood Methemoglobin 1.1 % Blood Gas Hemoglobin 12.1 G/DL Oxygen Delivery Device NASAL CANNULA Blood Gas Liter Flow 6 L/M Blood Gas Inspired Oxygen 50 % Indirect Bilirubin 0.8 MG/DL Test 06/13/17 06:04 06/13/17 06:33 06/14/17 07:00 Phosphorus Level 2.0 MG/DL Magnesium Level 2.0 MG/DL Direct Bilirubin 0.2 MG/DL Lipase 322 U/L Differential Total Cells Counted 100 Neutrophils % (Manual) 72 % Lymphocytes % 12 % Monocytes % 12 % Eosinophils % 4 % Neutrophils # (Manual) 5.3 TH/MM3 Differential Comment FINAL DIFF MANUAL Platelet Estimate NORMAL Platelet Morphology Comment NORMAL Red Cell Morphology Comment NORMAL Blood Urea Nitrogen 7 MG/DL 8 MG/DL Creatinine 0.85 MG/DL 0.98 MG/DL Random Glucose 153 MG/DL 122 MG/DL Total Protein 6.9 GM/DL Albumin 3.1 GM/DL Calcium Level 8.8 MG/DL 8.9 MG/DL Alkaline Phosphatase 50 U/L Aspartate Amino Transf (AST/SGOT) 113 U/L Alanine Aminotransferase (ALT/SGPT) 76 U/L Total Bilirubin 0.7 MG/DL Sodium Level 138 MEQ/L 138 MEQ/L Potassium Level 3.0 MEQ/L 3.4 MEQ/L Chloride Level 103 MEQ/L 105 MEQ/L Carbon Dioxide Level 26.7 MEQ/L 23.3 MEQ/L Total Creatine Kinase 7811 U/L Creatine Kinase MB 1.2 NG/ML Creatine Kinase MB % 0.0 % White Blood Count 9.0 TH/MM3 Red Blood Count 4.44 MIL/MM3 Hemoglobin 13.2 GM/DL Hematocrit 38.1 % Mean Corpuscular Volume 85.8 FL Mean Corpuscular Hemoglobin 29.8 PG Mean Corpuscular Hemoglobin Concent 34.7 % Red Cell Distribution Width 13.0 % Platelet Count 252 TH/MM3 Mean Platelet Volume 9.0 FL Anion Gap 10 MEQ/L Estimat Glomerular Filtration Rate 96 ML/MIN Objective Remarks GENERAL: No acute distress. SKIN: Warm and dry. HEAD: Atraumatic. Normocephalic. EYES: Pupils equal and round. No scleral icterus. No injection or drainage. ENT: No nasal bleeding or discharge. Mucous membranes pink and moist. NECK: Trachea midline. No JVD. CARDIOVASCULAR: Regular rate and rhythm. RESPIRATORY: No accessory muscle use. Clear to auscultation. Breath sounds equal bilaterally. GASTROINTESTINAL: Abdomen soft, non-tender, nondistended. Hepatic and splenic margins not palpable. MUSCULOSKELETAL: Extremities without clubbing, cyanosis, or edema. No obvious deformities. NEUROLOGICAL: Awake and alert. No obvious cranial nerve deficits. Motor grossly within normal limits. Five out of 5 muscle strength in the arms and legs. Normal speech. PSYCHIATRIC: Appropriate mood and affect; insight and judgment normal. Medications and IVs Current Medications Medications (Trade) Dose Ordered Sig/Bebe Route Start Time Stop Time Status Last Admin Piperacillin Sod/ Tazobactam Sod 100 ml @ 200 mls/hr Q6H IV 06/09/17 00:00 06/14/17 06:08 Azithromycin 500 mg/Sodium Chloride 250 ml @ 250 mls/hr Q24H IV 06/09/17 01:00 06/14/17 00:05 (NS Flush) 2 ml UNSCH PRN IV FLUSH 06/08/17 23:30 06/11/17 17:15 (NS Flush) 2 ml BID IV FLUSH 06/09/17 09:00 06/14/17 08:24 (Zofran Inj) 4 mg Q6H PRN IV PUSH 06/08/17 23:30 06/14/17 02:49 Miscellaneous Information 1 Q361D XX 06/08/17 23:30 06/08/17 23:30 (Chlorhexidine 2% Cloth) Taper DAILY@04 TOP 06/09/17 04:00 06/05/18 03:59 06/14/17 04:00 (Chlorhexidine 2% Cloth) 3 pack UNSCH PRN TOP 06/08/17 23:30 (Stephanie-Colace) 1 tab BID PO 06/09/17 09:00 06/12/17 20:15 (Milk Of Magnesia Liq) 30 ml Q12H PRN PO 06/08/17 23:30 (Senokot) 17.2 mg Q12H PRN PO 06/08/17 23:30 (Dulcolax Supp) 10 mg DAILY PRN RECTAL 06/08/17 23:30 (Lactulose Liq) 30 ml DAILY PRN PO 06/08/17 23:30 (Peridex 0.12% Liq) 15 ml BID@08,20 MT 06/09/17 08:00 06/12/17 20:00 Levetriacetam 500 mg/Sodium Chloride 105 ml @ 420 mls/hr Q12HR IV 06/09/17 09:00 06/14/17 08:24 (Brethine Inj) 1 mg UNSCH PRN SQ 06/09/17 02:45 (Albuterol Neb) 2.5 mg Q2HR NEB PRN NEB 06/09/17 13:15 06/13/17 20:08 (Tylenol 650 Mg/ 20 ml Liq) 650 mg Q6H PRN NG 06/09/17 13:15 06/14/17 07:49 (Melatonin) 5 mg HS PO 06/10/17 21:00 06/13/17 20:57 Potassium Chloride 100 ml @ 50 mls/hr Q2H PRN IV 06/12/17 02:15 06/12/17 02:56 Potassium Chloride 100 ml @ 50 mls/hr Q2H PRN IV 06/12/17 02:15 06/13/17 23:10 (K-Lyte Cl Eff) 50 meq UNSCH PRN PO 06/12/17 02:15 Potassium Chloride 100 ml @ 25 mls/hr UNSCH PRN IV 06/12/17 02:15 Potassium Chloride 100 ml @ 50 mls/hr Q2H PRN IV 06/12/17 02:15 Magnesium Sulfate 4 gm/Sodium Chloride 100 ml @ 50 mls/hr UNSCH PRN IV 06/12/17 02:15 (Mag-Ox) 800 mg UNSCH PRN PO 06/12/17 02:15 Magnesium Sulfate 2 gm/Sodium Chloride 100 ml @ 50 mls/hr UNSCH PRN IV 06/12/17 02:15 (K-Phos) 2,000 mg Q4H PRN PO 06/12/17 02:15 Sodium Phosphate 30 mmol/Sodium Chloride 250 ml @ 42 mls/hr UNSCH PRN IV 06/12/17 02:15 (K-Phos) 2,000 mg UNSCH PRN PO/TUBE 06/12/17 02:15 Potassium Phosphate 30 mmol/ Sodium Chloride 260 ml @ 42 mls/hr UNSCH PRN IV 06/12/17 02:15 (Phenergan) 25 mg Q6H PRN PO 06/12/17 18:45 06/13/17 20:56 (Phenergan Supp) 25 mg Q4H PRN RECTAL 06/13/17 08:30 06/14/17 08:24 A/P Assessment and Plan 1. New Onset of Seizures, THC use, Acute Encephalopathy Improved, on Levetiracetam 500 mg BID, EEG 06/09 encephalopathy no ictal activity CT brain no acute intracranial findings, MRI brain no acute disease, Neurology specialist following. no new recommendations. 2. Hypotension needed for vasopressors likely medication induced Resolved, 2-D echocardiogram: 06/10: LVEF 60%, no RWMA, no valvular lesions. 3. Acute Hypoxic and Hypercarbic respiratory failure Improved was on Mechanical ventilation, Bilateral pulmonary infiltrates on Bronchodilator, Mucolytic, Incentive spirometry, CT thorax revealed crazy wavy pattern PAP, AIP, ARDS included in differential relocation services specialist following. 4. Acute Gastritis. on Famotidine and Carafate. 5. Acute Kidney Injury Improved. 6. Aspiration Pneumonia ID and relocation services specialist following. on Zosyn and Azithromycin. 7. Electrolyte derangement replaced and following. Discussed with Patient, Nurse Miss Blair, his Mother and Father all questions answered to the best of my abilities Transfer to Medical Floor. PT evaluate and treat Discharge Planning Once cleared by ID and relocation services specialist. Chuy Merlos MD Jun 14, 2017 09:53
[2017-06-14] MEDS ORDERED: traMADol HCL 50 MG TAB PO PRN (10:00)
[2017-06-14] MEDS ORDERED: SODIUM PHOSPHATE INJ 15 MMOL in SODIUM CHLORIDE 0.9% INJ 150 ML IV ONE (11:00)
[2017-06-14] MEDS: POTASSIUM CHLOR 10 MEQ PREMIX 100 ML IV SCH ×3 (11:00→14:00)
[2017-06-14] MEDS: SUCRALFATE 1 GM/10 ML CUP PO SCH ×3 (11:03→21:45)
[2017-06-14] MEDS: FAMOTIDINE 20 MG/2 ML VIAL IV PUSH SCH ×2 (11:03→21:45)
--- NOTE | 2017-06-14 14:05 | HHI.IDPN ---
Note Infectious Disease Note Patient says he feels a lot better. On nasal canula. Noted by RN to still have nausea. Afebrile. Alert and oriented x 3. PAST MEDICAL HISTORY Seizure. ALLERGIES: NO KNOWN DRUG ALLERGIES. ANTIBIOTICS: 1. Azithromycin. 2. Piperacillin / tazobactam. SOCIAL HISTORY: No tobacco use. Occasional alcohol use. Positive marijuana use. PHYSICAL EXAMINATION: GENERAL: No acute distress. HEAD, EYES, EARS, NOSE, THROAT: His head is atraumatic. The patient has a few red blotchy raised spots on the face. Extraocular movements grossly intact. Pupils reactive to light. No icterus. Oropharynx has no visible lesions. No thrush. NECK: Supple and without adenopathy. LUNGS: Diminished breath sounds same. HEART: Regular S1-S2 without murmurs, rubs or gallops. ABDOMEN: Bowel sounds present, soft, flat, nontender. EXTREMITIES: No clubbing or cyanosis. trace edema at the hands. SKIN: No rash. NEUROLOGIC: Non focal. PSYCHIATRIC: The patient is calm. IMPRESSION: 1. Bilateral lung infiltrates, probably secondary to pneumonia. The patient very likely aspirated. He also likely has an ARDS component. 2. Acute respiratory failure. The patient is status post extubation. 3. Seizure disorder. Lumbar puncture suggests no infection as the cause of the seizure. 4. Fever, probably secondary to pneumonia or aspiration. RECOMMENDATIONS: 1. Continue piperacillin / tazobactam if no vomiting this can be changed to PO Levaquin. 2. Continue azithromycin today then D/C. 3. I will see PRN. Ed Slater MD Jun 14, 2017 14:05
[2017-06-14] MEDS: PROMETHAZINE HCL 25 MG TAB PO PRN (15:47)
--- NOTE | 2017-06-14 19:55 | HHI.PR ---
Subjective Remarks 21 YOWM with RF, SZ Feels better weanedto RA Breathing better nausea, electrolytes imbalance Objective Vital Signs Vital Signs Date Time Temp Pulse Resp B/P (MAP) Pulse Ox O2 Delivery O2 Flow Rate FiO2 06/14/17 18:00 53 06/14/17 17:00 54 06/14/17 16:00 53 06/14/17 16:00 98.5 53 15 151/77 (101) 83 06/14/17 15:00 58 06/14/17 14:00 55 06/14/17 13:00 58 06/14/17 12:00 55 06/14/17 12:00 98.3 55 24 130/77 (94) 97 06/14/17 11:00 51 06/14/17 10:00 49 06/14/17 09:00 54 06/14/17 08:00 68 06/14/17 08:00 98.5 68 19 138/85 (102) 87 06/14/17 07:15 95 21 06/14/17 07:00 72 06/14/17 06:00 81 06/14/17 04:00 47 06/14/17 04:00 98.6 47 16 138/93 (108) 96 06/14/17 02:00 63 06/14/17 00:00 97.7 70 21 135/69 (91) 96 06/14/17 00:00 70 06/13/17 22:00 54 06/13/17 20:00 97.4 58 19 136/76 (96) 99 06/13/17 20:00 58 I/O 06/13/17 06/13/17 06/13/17 06/14/17 06/14/17 06/14/17 07:00 15:00 23:00 07:00 15:00 23:00 Intake Total 1237 ml 1305 ml 1000 ml 705 ml 505 ml 605 ml Output Total 900 ml 1000 ml 900 ml 500 ml Balance 337 ml 1305 ml 0 ml -195 ml 505 ml 105 ml Intake Oral 240 ml 100 ml 50 ml 350 ml IV Total 997 ml 1305 ml 900 ml 655 ml 505 ml 255 ml Output Urine Total 900 ml 1000 ml 900 ml 500 ml # Voids 3 # Bowel Movements 1 2 1 1 Result Diagram: 06/14/1769906/14/17 07 Objective Remarks GENERAL: WBWN WM, mild sob SKIN: Warm and dry. HEAD: Normocephalic. EYES: No scleral icterus. No injection or drainage. NECK: Supple, trachea midline. No JVD or lymphadenopathy. CARDIOVASCULAR: Regular rate and rhythm without murmurs, gallops, or rubs. RESPIRATORY: Breath sounds equal bilaterally. No accessory muscle use. Bilat rales GASTROINTESTINAL: Abdomen soft, non-tender, nondistended. MUSCULOSKELETAL: No cyanosis, or edema. BACK: Nontender without obvious deformity. No CVA tenderness. A/P Assessment and Plan Resp Failure, s/p extubation Bilat lung infilt, ? aspiration Fever Sz disorder PLAN: Stable on RA check cultures check Histo titer Abx Zosyn and Zithro Correct lytes. Stable from pulm standpoint to tr to Floor. Pedro Meade MD Jun 14, 2017 19:55
[2017-06-14] MEDS: MELATONIN 5 MG TAB PO SCH (21:45)
[2017-06-14] MEDS: SODIUM CHLORIDE 0.9% FLUSH 10 ML FLUSH IV FLUSH PRN (22:05)
[2017-06-15] VITALS (13 sets, daily range): BP systolic 103–149; BP diastolic 70–96; PULSE 50–64; RESP 13–24; TEMP 97.8–99.7; O2SAT 96–100
[2017-06-15] MEDS: AZITHROMYCIN INJ 500 MG in SODIUM CHLOR 0.9% 250 ML INJ 250 ML IV SCH (00:45)
[2017-06-15] MEDS: CHLORHEXIDINE GLUCONATE 2 % 1 PACK (2 CLOTHS) TOP SCH (00:45)
[2017-06-15] MEDS: PIPERACIL-TAZO 4.5 GM PREMIX 100 ML IV SCH ×3 (06:23→17:50)
[2017-06-15 06:53] LABS: HEMOGLOBIN 13.2 GM/DL (13.0-17.0); MEAN CELL VOLUME 84.8 FL (80.0-100.0); MEAN CORPUSCULAR HEMOGLOBIN 29.4 PG (27.0-34.0); MEAN CORPUSCULAR HGB CONC 34.7 % (32.0-36.0); MEAN PLATELET VOLUME 8.6 FL (7.0-11.0); PLATELET COUNT 288 TH/MM3 (150-450); RED BLOOD COUNT 4.48 MIL/MM3 (4.50-5.90); RED CELL DISTRIBUTION WIDTH 12.9 % (11.6-17.2); WHITE BLOOD COUNT 8.7 TH/MM3 (4.0-11.0)
[2017-06-15 07:11] LABS: BICARBONATE 21.7 MEQ/L (21.0-32.0); CALCIUM 8.9 MG/DL (8.5-10.1); CREATININE 0.83 MG/DL (0.60-1.30); MAGNESIUM 1.9 MG/DL (1.5-2.5)
[2017-06-15] MEDS: FAMOTIDINE 20 MG/2 ML VIAL IV PUSH SCH ×2 (07:56→21:52)
[2017-06-15] MEDS: ONDANSETRON HCL 4 MG/2 ML VIAL IV PUSH PRN ×2 (07:56→15:05)
[2017-06-15] MEDS: SODIUM CHLORIDE 0.9% FLUSH 10 ML FLUSH IV FLUSH SCH ×2 (07:59→21:52)
[2017-06-15] MEDS: levETIRAcetam INJ 500 MG in SODIUM CHLORIDE 0.9% INJ 100 ML IV SCH ×2 (07:59→21:52)
[2017-06-15] MEDS: DOCUSATE SODIUM 50 MG/SENNA 8.6 MG TAB PO SCH ×2 (08:00→21:52)
[2017-06-15] MEDS: CHLORHEXIDINE 0.12% (ORAL KIT) 15 ML CUP MT SCH ×2 (08:00→20:00)
[2017-06-15] MEDS ORDERED: POTASSIUM CHLORIDE 20 MEQ CONTROLLED RELEASE TAB PO ONE ×2 (08:30→12:00)
--- NOTE | 2017-06-15 08:39 | HHI.PR ---
Subjective Remarks audio specialist Notes: 21-year-old presents by EMS from home. Patient was seen in the emergency room a few hours ago for seizure. Apparently does not have history of seizure even though after further conversation with the patient's mother he had episode of seizures a year ago when he was experimenting with alprazolam as a recreational supplement. He had a workup done and was discharged home. Per family when he got home after discharge he was complaining of chest congestion and shortness of breath that was progressively getting worse. His girlfriend who was with him noticed that he had another episode of seizure that lasted for 3 minutes. She called EMS. As per paramedics when they arrived he was confused and postictal. They took him into the ambulance and he started vomiting blood ? . however NG tube placed in the ED didn't reveal any blood or coffee-ground content in the stomach. Patient was slightly tachycardic but blood pressure stable. They said his GCS was 15 on route. When patient arrived to the ER he was confused and GCS was 14. He was hemodynamically stable. His oxygen saturation was 80% on nonrebreather. As per EMS they noticed that his oxygen saturation was in mid 70s on room air when they first put him on a monitor. As I was talking to the paramedics patient started to cough up blood. He was intubated for progressively worsening respiratory distress and hypoxemia by ED attending. 06/09: Remains on multiple sedation medications and dopamine. CT brain no acute findings. MRI brain ordered. EEG showed medication induced encephalopathy. 06/10: encephalopathy persists. on lightening of sedation, becomes very agitated. does withdraw to pain, and is purposeful, but not following commands. MRI brain wnl. I had a long discussion with the family where I re-confirmed no international travel. He did spend 1 summer in [place] on a farm, and they did note that the farm had bats. Otherwise, he was in his complete and full state of health up until the day of admission. he works out daily and had no problems going to the gym the day before presentation. no other associated recent symptoms. parents do say he gets stomach aches when he eats "lots of gluten" so he tries to avoid it when he can. they say he alternates between a "ketogenic"-type diet (although does not adhere strictly to this), and an Adkin' s-type diet. He does eat occasional carbs, but rarely. 06/11: extubated overnight. on NRB this AM. follows commands and answering some questions, but still dyspneic. legionella Ag negative. all cultures still NGTD. Hospitalist Notes: 06/14: Seen in his bedroom and discussed with nurse Miss Connor, complaint of Nausea, but no management for Acute Gastritis is suspected, started on Famotidine and Carafate, giving Electrolyte replacement, continue management by database management system specialist and by ID specialist for his Bilateral Lung infiltrates and probable Aspiration Pneumonia. discussed in the room with his Father and Mother. 06/15: Stable in his bedroom discussed with his Father and Mother in the room, had one episode of vomit yesterday night but at this time improving condition. no nausea, vomit or diarrhea. Objective Vital Signs Date Time Temp Pulse Resp B/P (MAP) Pulse Ox O2 Delivery O2 Flow Rate FiO2 06/15/17 08:17 98 06/15/17 06:00 98.6 60 23 148/90 (109) 99 06/15/17 06:00 60 06/15/17 04:00 64 06/15/17 02:00 60 06/15/17 00:00 61 06/15/17 00:00 97.8 61 24 130/70 (90) 96 06/14/17 22:00 53 06/14/17 20:00 98.6 53 24 128/81 (97) 97 06/14/17 20:00 53 06/14/17 19:04 98 21 06/14/17 18:00 53 06/14/17 17:00 54 06/14/17 16:00 53 06/14/17 16:00 98.5 53 15 151/77 (101) 83 06/14/17 15:00 58 06/14/17 14:00 55 06/14/17 13:00 58 06/14/17 12:00 55 06/14/17 12:00 98.3 55 24 130/77 (94) 97 06/14/17 11:00 51 06/14/17 10:00 49 06/14/17 09:00 54 I/O 06/14/17 06/14/17 06/14/17 06/15/17 06/15/17 06/15/17 07:00 15:00 23:00 07:00 15:00 23:00 Intake Total 705 ml 505 ml 605 ml 1005 ml Output Total 900 ml 500 ml 550 ml Balance -195 ml 505 ml 105 ml 455 ml Intake Oral 50 ml 350 ml 650 ml IV Total 655 ml 505 ml 255 ml 355 ml Output Urine Total 900 ml 500 ml 550 ml # Bowel Movements 1 1 2 Result Diagram: 06/15/17 0633 06/15/17 0633 Imaging Last Impressions Gall Bladder Ultrasound 06/13/17 0000 Signed Impressions: Service Date/Time: Tuesday, June 13, 2017 12:51 - CONCLUSION: 1. Unremarkable ultrasound examination of the abdomen. 2. Right effusion Humza Lindo MD Chest X-Ray 06/12/17 0600 Signed Impressions: Service Date/Time: Monday, June 12, 2017 02:48 - CONCLUSION: No significant change upper lobe predominant diffuse bilateral airspace opacities. Lonnie Horn MD Abdomen X-Ray 06/12/17 0000 Signed Impressions: Service Date/Time: Monday, June 12, 2017 11:28 - CONCLUSION: Unremarkable nonobstructive bowel gas pattern. Raul Quiñones MD Brain MRI 06/10/17 0000 Signed Impressions: Service Date/Time: Saturday, June 10, 2017 09:58 - CONCLUSION: Negative exam. Natalio Solorio MD Lumbar Puncture Fluoroscopy 06/09/17 0000 Signed Impressions: Service Date/Time: May 15:34 - CONCLUSION: Uncomplicated fluoroscopically guided lumbar puncture with pressures as above. Ang Wray MD Head CT 06/08/177 Signed Impressions: Service Date/Time: Thursday, June 08, 2017 23:25 - CONCLUSION: Normal examination. Loki Pitts MD Chest CT 06/08/17 0000 Signed Impressions: Service Date/Time: Thursday, June 08, 2017 23:28 - CONCLUSION: 1. 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 Loki Pitts MD Procedures Endotracheal Intubation and Extubation. Other Results Laboratory Tests Test 06/08/17 22:40 06/08/17 22:41 06/09/17 01:30 06/09/17 07:57 Ammonia 21 MCMOL/L Troponin I LESS THAN 0.02 NG/ML Thyroid Stimulating Hormone 3rd Gen 1.020 uIU/ML Salicylates Level LESS THAN 1.7 MG/DL Acetaminophen Level LESS THAN 2.0 MCG/ML Ethyl Alcohol Level LESS THAN 3 MG/DL Urine Color LIGHT-YELLOW Urine Turbidity CLEAR Urine pH 5.5 Urine Specific [place] 1.016 Urine Protein TRACE mg/dL Urine Glucose (UA) TRACE mg/dL Urine Ketones 10 mg/dL Urine Occult Blood NEG Urine Nitrite NEG Urine Bilirubin NEG Urine Urobilinogen LESS THAN 2.0 MG/DL Urine Leukocyte Esterase NEG Urine RBC LESS THAN 1 /hpf Urine WBC 1 /hpf Urine Mucus FEW /lpf Microscopic Urinalysis Comment CATH-CULT NOT IND Urine Opiates Screen NEG Urine Barbiturates Screen NEG Urine Amphetamines Screen NEG Urine Benzodiazepines Screen NEG Urine Cocaine Screen NEG Urine Cannabinoids Screen POS Nasal Screen MRSA (PCR) MRSA NOT DETECTED Lactic Acid Level 1.9 mmol/L Test 06/09/17 14:33 06/09/17 16:19 06/09/17 17:55 06/10/17 17:00 Prothrombin Time 12.2 SEC Prothromb Time International Ratio 1.1 RATIO Activated Partial Thromboplast Time 32.1 SEC CSF Volume (Tube 1) 4.0 ML CSF Supernatant Color (tube 1) CLEAR CSF Gross Blood (Tube 1) 1+ CSF Volume (Tube 2) 3.5 ML CSF Supernatant Color (tube 2) CLEAR CSF Gross Blood (Tube 2) 1+ CSF Volume (Tube 3) 5.2 ML CSF Supernatant Color (tube 3) CLEAR CSF Gross Blood (Tube 3) 1+ CSF Volume (Tube 4) 5.9 ML CSF Supernatant Color (tube 4) CLEAR CSF Gross Blood (Tube 4) TRACE CSF WBC (Tube 4) 5 /MM3 CSF RBC (Tube 4) 30 /MM3 CSF Neutrophils 3 % CSF Lymphocytes 91 % CSF Monocytes 6 % CSF Glucose 55 MG/DL CSF Lactate Dehydrogenase 10 U/L CSF Total Protein 30.8 MG/DL Lactate Dehydrogenase 254 U/L Blood Smear Pathologist Review Erythrocyte Sedimentation Rate 14 mm/hr Test 06/10/17 22:45 06/11/17 05:00 06/11/17 05:21 06/12/17 05:15 Blood Gas Ventilator Setting PC/AC Neutrophils (%) (Auto) 78.3 % Lymphocytes (%) (Auto) 12.3 % Monocytes (%) (Auto) 5.8 % Eosinophils (%) (Auto) 3.0 % Basophils (%) (Auto) 0.6 % Neutrophils # (Auto) 7.8 TH/MM3 Lymphocytes # (Auto) 1.2 TH/MM3 Monocytes # (Auto) 0.6 TH/MM3 Eosinophils # (Auto) 0.3 TH/MM3 Basophils # (Auto) 0.1 TH/MM3 CBC Comment DIFF FINAL Blood Gas Puncture Site LT RADIAL Blood Gas Patient Temperature 98.6 Blood Gas HCO3 20 mmol/L Blood Gas Base Excess -4.0 mmol/L Blood Gas Oxygen Saturation 87 % Arterial Blood pH 7.38 Arterial Blood Partial Pressure CO2 35 mmHg Arterial Blood Partial Pressure O2 56 mmHg Arterial Blood Oxygen Content 14.9 Vol % Arterial Blood Carboxyhemoglobin 0.8 % Arterial Blood Methemoglobin 1.1 % Blood Gas Hemoglobin 12.1 G/DL Oxygen Delivery Device NASAL CANNULA Blood Gas Liter Flow 6 L/M Blood Gas Inspired Oxygen 50 % Indirect Bilirubin 0.8 MG/DL Test 06/13/17 06:04 06/13/17 06:33 06/15/17 06:33 Direct Bilirubin 0.2 MG/DL Lipase 322 U/L Differential Total Cells Counted 100 Neutrophils % (Manual) 72 % Lymphocytes % 12 % Monocytes % 12 % Eosinophils % 4 % Neutrophils # (Manual) 5.3 TH/MM3 Differential Comment FINAL DIFF MANUAL Platelet Estimate NORMAL Platelet Morphology Comment NORMAL Red Cell Morphology Comment NORMAL Blood Urea Nitrogen 7 MG/DL 7 MG/DL Creatinine 0.85 MG/DL 0.83 MG/DL Random Glucose 153 MG/DL 91 MG/DL Total Protein 6.9 GM/DL Albumin 3.1 GM/DL Calcium Level 8.8 MG/DL 8.9 MG/DL Alkaline Phosphatase 50 U/L Aspartate Amino Transf (AST/SGOT) 113 U/L Alanine Aminotransferase (ALT/SGPT) 76 U/L Total Bilirubin 0.7 MG/DL Sodium Level 138 MEQ/L 138 MEQ/L Potassium Level 3.0 MEQ/L 3.3 MEQ/L Chloride Level 103 MEQ/L 105 MEQ/L Carbon Dioxide Level 26.7 MEQ/L 21.7 MEQ/L Total Creatine Kinase 7811 U/L Creatine Kinase MB 1.2 NG/ML Creatine Kinase MB % 0.0 % White Blood Count 8.7 TH/MM3 Red Blood Count 4.48 MIL/MM3 Hemoglobin 13.2 GM/DL Hematocrit 38.0 % Mean Corpuscular Volume 84.8 FL Mean Corpuscular Hemoglobin 29.4 PG Mean Corpuscular Hemoglobin Concent 34.7 % Red Cell Distribution Width 12.9 % Platelet Count 288 TH/MM3 Mean Platelet Volume 8.6 FL Phosphorus Level 3.0 MG/DL Magnesium Level 1.9 MG/DL Anion Gap 11 MEQ/L Estimat Glomerular Filtration Rate 116 ML/MIN Objective Remarks GENERAL: No acute distress. SKIN: Warm and dry. HEAD: Atraumatic. Normocephalic. EYES: Pupils equal and round. No scleral icterus. No injection or drainage. ENT: No nasal bleeding or discharge. Mucous membranes pink and moist. NECK: Trachea midline. No JVD. CARDIOVASCULAR: Regular rate and rhythm. RESPIRATORY: No accessory muscle use. Clear to auscultation. Breath sounds equal bilaterally. GASTROINTESTINAL: Abdomen soft, non-tender, nondistended. Hepatic and splenic margins not palpable. MUSCULOSKELETAL: Extremities without clubbing, cyanosis, or edema. No obvious deformities. NEUROLOGICAL: Awake and alert. No obvious cranial nerve deficits. Motor grossly within normal limits. Five out of 5 muscle strength in the arms and legs. Normal speech. PSYCHIATRIC: Appropriate mood and affect; insight and judgment normal. Medications and IVs Current Medications Medications (Trade) Dose Ordered Sig/Bebe Route Start Time Stop Time Status Last Admin Piperacillin Sod/ Tazobactam Sod 100 ml @ 200 mls/hr Q6H IV 06/09/17 00:00 06/15/17 06:23 Azithromycin 500 mg/Sodium Chloride 250 ml @ 250 mls/hr Q24H IV 06/09/17 01:00 06/15/17 00:45 (NS Flush) 2 ml UNSCH PRN IV FLUSH 06/08/17 23:30 06/14/17 22:05 (NS Flush) 2 ml BID IV FLUSH 06/09/17 09:00 06/15/17 07:59 (Zofran Inj) 4 mg Q6H PRN IV PUSH 06/08/17 23:30 06/15/17 07:56 Miscellaneous Information 1 Q361D XX 06/08/17 23:30 06/08/17 23:30 (Chlorhexidine 2% Cloth) Taper DAILY@04 TOP 06/09/17 04:00 06/05/18 03:59 06/15/17 00:45 (Chlorhexidine 2% Cloth) 3 pack UNSCH PRN TOP 06/08/17 23:30 (Stephanie-Colace) 1 tab BID PO 06/09/17 09:00 06/12/17 20:15 (Milk Of Magnesia Liq) 30 ml Q12H PRN PO 06/08/17 23:30 (Senokot) 17.2 mg Q12H PRN PO 06/08/17 23:30 (Dulcolax Supp) 10 mg DAILY PRN RECTAL 06/08/17 23:30 (Lactulose Liq) 30 ml DAILY PRN PO 06/08/17 23:30 (Peridex 0.12% Liq) 15 ml BID@08,20 MT 06/09/17 08:00 06/12/17 20:00 Levetriacetam 500 mg/Sodium Chloride 105 ml @ 420 mls/hr Q12HR IV 06/09/17 09:00 06/15/17 07:59 (Brethine Inj) 1 mg UNSCH PRN SQ 06/09/17 02:45 (Albuterol Neb) 2.5 mg Q2HR NEB PRN NEB 06/09/17 13:15 06/13/17 20:08 (Tylenol 650 Mg/ 20 ml Liq) 650 mg Q6H PRN NG 06/09/17 13:15 06/14/17 22:41 (Melatonin) 5 mg HS PO 06/10/17 21:00 06/14/17 21:45 Potassium Chloride 100 ml @ 50 mls/hr Q2H PRN IV 06/12/17 02:15 06/12/17 02:56 Potassium Chloride 100 ml @ 50 mls/hr Q2H PRN IV 06/12/17 02:15 06/13/17 23:10 (K-Lyte Cl Eff) 50 meq UNSCH PRN PO 06/12/17 02:15 Potassium Chloride 100 ml @ 25 mls/hr UNSCH PRN IV 06/12/17 02:15 Potassium Chloride 100 ml @ 50 mls/hr Q2H PRN IV 06/12/17 02:15 Magnesium Sulfate 4 gm/Sodium Chloride 100 ml @ 50 mls/hr UNSCH PRN IV 06/12/17 02:15 (Mag-Ox) 800 mg UNSCH PRN PO 06/12/17 02:15 Magnesium Sulfate 2 gm/Sodium Chloride 100 ml @ 50 mls/hr UNSCH PRN IV 06/12/17 02:15 (K-Phos) 2,000 mg Q4H PRN PO 06/12/17 02:15 Sodium Phosphate 30 mmol/Sodium Chloride 250 ml @ 42 mls/hr UNSCH PRN IV 06/12/17 02:15 (K-Phos) 2,000 mg UNSCH PRN PO/TUBE 06/12/17 02:15 Potassium Phosphate 30 mmol/ Sodium Chloride 260 ml @ 42 mls/hr UNSCH PRN IV 06/12/17 02:15 (Phenergan) 25 mg Q6H PRN PO 06/12/17 18:45 06/14/17 15:47 (Phenergan Supp) 25 mg Q4H PRN RECTAL 06/13/17 08:30 06/14/17 08:24 (Carafate Liq) 1 gm ACHS PO 06/14/17 12:00 06/14/17 21:45 (Pepcid Inj) 20 mg Q12HR IV PUSH 06/14/17 10:00 06/15/17 07:56 A/P Assessment and Plan 1. New Onset of Seizures, THC use, Acute Encephalopathy Improved, on Levetiracetam 500 mg BID, EEG 06/09 encephalopathy no ictal activity CT brain no acute intracranial findings, MRI brain no acute disease, Neurology specialist following. no new recommendations. 2. Hypotension needed for vasopressors likely medication induced Resolved, 2-D echocardiogram: 06/10: LVEF 60%, no RWMA, no valvular lesions. 3. Acute Hypoxic and Hypercarbic respiratory failure Improved was on Mechanical ventilation, Bilateral pulmonary infiltrates on Bronchodilator, Mucolytic, Incentive spirometry, CT thorax revealed crazy wavy pattern PAP, AIP, ARDS included in differential database management system specialist following. 4. Acute Gastritis. on Famotidine and Carafate. 5. Acute Kidney Injury Improved. 6. Aspiration Pneumonia ID and database management system specialist following. on Zosyn and Azithromycin. 7. Electrolyte derangement replaced and following. Discussed with Patient, Nurse Miss Blair, his Mother and Father all questions answered to the best of my abilities stable asked for PT for discharge later today or in am tomorrow. PT evaluate and treat Discharge Planning Expected later today or in am tomorrow. Chuy Merlos MD Jun 15, 2017 08:39
[2017-06-15] MEDS ORDERED: MAGNESIUM SULFATE 1 GM PREMIX 100 ML IV SCH (09:00)
[2017-06-15] MEDS: SUCRALFATE 1 GM/10 ML CUP PO SCH ×4 (09:26→21:52)
[2017-06-15] MEDS: ACETAMINOPHEN 650 MG/20.3 ML UDC NG PRN (15:52)
--- NOTE | 2017-06-15 20:16 | HHI.PR ---
Subjective Remarks 21 YOWM with RF, SZ Feels better weaned to RA Breathing better Tolerated dinner, did't require Nausea meds Objective Vital Signs Vital Signs Date Time Temp Pulse Resp B/P (MAP) Pulse Ox O2 Delivery O2 Flow Rate FiO2 06/15/17 18:00 50 06/15/17 16:52 14 06/15/17 16:00 57 06/15/17 16:00 99.7 57 23 103/96 (98) 96 06/15/17 14:00 51 06/15/17 12:00 98.8 57 13 149/90 (109) 98 06/15/17 12:00 57 06/15/17 10:00 60 06/15/17 08:17 98 06/15/17 08:00 50 06/15/17 08:00 98.0 51 18 140/82 (101) 100 06/15/17 06:00 98.6 60 23 148/90 (109) 99 06/15/17 06:00 60 06/15/17 04:00 64 06/15/17 02:00 60 06/15/17 00:00 61 06/15/17 00:00 97.8 61 24 130/70 (90) 96 06/14/17 22:00 53 I/O 06/14/17 06/14/17 06/14/17 06/15/17 06/15/17 06/15/17 07:00 15:00 23:00 07:00 15:00 23:00 Intake Total 705 ml 505 ml 605 ml 1205 ml 205 ml 100 ml Output Total 900 ml 500 ml 550 ml Balance -195 ml 505 ml 105 ml 655 ml 205 ml 100 ml Intake Oral 50 ml 350 ml 650 ml IV Total 655 ml 505 ml 255 ml 555 ml 205 ml 100 ml Output Urine Total 900 ml 500 ml 550 ml # Voids 5 # Bowel Movements 1 1 2 2 Result Diagram: 06/15/1763206/15/17632 Objective Remarks GENERAL: WBWN WM, mild sob SKIN: Warm and dry. HEAD: Normocephalic. EYES: No scleral icterus. No injection or drainage. NECK: Supple, trachea midline. No JVD or lymphadenopathy. CARDIOVASCULAR: Regular rate and rhythm without murmurs, gallops, or rubs. RESPIRATORY: Breath sounds equal bilaterally. No accessory muscle use. Bilat rales GASTROINTESTINAL: Abdomen soft, non-tender, nondistended. MUSCULOSKELETAL: No cyanosis, or edema. BACK: Nontender without obvious deformity. No CVA tenderness. A/P Assessment and Plan Resp Failure, s/p extubation Bilat lung infilt, ? aspiration Fever Sz disorder PLAN: Stable on RA Abx Zosyn and Zithro Correct lytes. Stable from pulm standpoint to tr to Floor. Pedro Meade MD Jun 15, 2017 20:16
[2017-06-15] MEDS: MELATONIN 5 MG TAB PO SCH (21:52)
[2017-06-16] VITALS (7 sets, daily range): BP systolic 107–149; BP diastolic 69–84; PULSE 46–66; RESP 18–22; TEMP 98.3–98.7; O2SAT 96–100
[2017-06-16] MEDS: PIPERACIL-TAZO 4.5 GM PREMIX 100 ML IV SCH ×2 (00:19→07:38)
[2017-06-16] MEDS: AZITHROMYCIN INJ 500 MG in SODIUM CHLOR 0.9% 250 ML INJ 250 ML IV SCH (01:00)
[2017-06-16] MEDS: ACETAMINOPHEN 650 MG/20.3 ML UDC NG PRN ×3 (02:31→08:18)
[2017-06-16] MEDS: PROMETHAZINE HCL 25 MG TAB PO PRN ×2 (02:40→08:19)
[2017-06-16] MEDS: ONDANSETRON HCL 4 MG/2 ML VIAL IV PUSH PRN (02:42)
[2017-06-16] MEDS: CHLORHEXIDINE GLUCONATE 2 % 1 PACK (2 CLOTHS) TOP SCH (04:00)
[2017-06-16 06:58] LABS: HEMATOCRIT 38.1 % (39.0-51.0); HEMOGLOBIN 13.2 GM/DL (13.0-17.0); MEAN CELL VOLUME 85.6 FL (80.0-100.0); MEAN CORPUSCULAR HEMOGLOBIN 29.6 PG (27.0-34.0); MEAN CORPUSCULAR HGB CONC 34.6 % (32.0-36.0); MEAN PLATELET VOLUME 8.8 FL (7.0-11.0); PLATELET COUNT 298 TH/MM3 (150-450); RED BLOOD COUNT 4.45 MIL/MM3 (4.50-5.90); RED CELL DISTRIBUTION WIDTH 13.1 % (11.6-17.2); WHITE BLOOD COUNT 7.7 TH/MM3 (4.0-11.0)
[2017-06-16 07:17] LABS: BICARBONATE 22.7 MEQ/L (21.0-32.0); CALCIUM 8.9 MG/DL (8.5-10.1); CREATININE 0.96 MG/DL (0.60-1.30)
[2017-06-16] MEDS: SUCRALFATE 1 GM/10 ML CUP PO SCH (07:38)
[2017-06-16] MEDS: CHLORHEXIDINE 0.12% (ORAL KIT) 15 ML CUP MT SCH (08:00)
[2017-06-16] MEDS ORDERED: POTASSIUM CHLOR 10 MEQ PREMIX 100 ML IV SCH (08:00)
[2017-06-16] MEDS: levETIRAcetam INJ 500 MG in SODIUM CHLORIDE 0.9% INJ 100 ML IV SCH (08:18)
[2017-06-16] MEDS: FAMOTIDINE 20 MG/2 ML VIAL IV PUSH SCH (08:18)
[2017-06-16] MEDS: SODIUM CHLORIDE 0.9% FLUSH 10 ML FLUSH IV FLUSH SCH (08:19)
[2017-06-16] MEDS: DOCUSATE SODIUM 50 MG/SENNA 8.6 MG TAB PO SCH (08:19)
[2017-06-16] MEDS ORDERED: FAMO20TA2 PO (08:56)
[2017-06-16] MEDS ORDERED: LEVE500 PO (08:56)
[2017-06-16] MEDS ORDERED: LEVA750T9 PO (08:56)
[2017-06-16] MEDS ORDERED: CARA1TAB6 PO (08:56)
[2017-06-16] MEDS ORDERED: PROM25TA10 PO (08:56)
--- NOTE | 2017-06-16 08:59 | HHI.PR ---
Subjective Remarks edi specialist Notes: 21-year-old presents by EMS from home. Patient was seen in the emergency room a few hours ago for seizure. Apparently does not have history of seizure even though after further conversation with the patient's mother he had episode of seizures a year ago when he was experimenting with alprazolam as a recreational supplement. He had a workup done and was discharged home. Per family when he got home after discharge he was complaining of chest congestion and shortness of breath that was progressively getting worse. His girlfriend who was with him noticed that he had another episode of seizure that lasted for 3 minutes. She called EMS. As per paramedics when they arrived he was confused and postictal. They took him into the ambulance and he started vomiting blood ? . however NG tube placed in the ED didn't reveal any blood or coffee-ground content in the stomach. Patient was slightly tachycardic but blood pressure stable. They said his GCS was 15 on route. When patient arrived to the ER he was confused and GCS was 14. He was hemodynamically stable. His oxygen saturation was 80% on nonrebreather. As per EMS they noticed that his oxygen saturation was in mid 70s on room air when they first put him on a monitor. As I was talking to the paramedics patient started to cough up blood. He was intubated for progressively worsening respiratory distress and hypoxemia by ED attending. 06/09: Remains on multiple sedation medications and dopamine. CT brain no acute findings. MRI brain ordered. EEG showed medication induced encephalopathy. 06/10: encephalopathy persists. on lightening of sedation, becomes very agitated. does withdraw to pain, and is purposeful, but not following commands. MRI brain wnl. I had a long discussion with the family where I re-confirmed no international travel. He did spend 1 summer in [place] on a farm, and they did note that the farm had bats. Otherwise, he was in his complete and full state of health up until the day of admission. he works out daily and had no problems going to the gym the day before presentation. no other associated recent symptoms. parents do say he gets stomach aches when he eats "lots of gluten" so he tries to avoid it when he can. they say he alternates between a "ketogenic"-type diet (although does not adhere strictly to this), and an Adkin' s-type diet. He does eat occasional carbs, but rarely. 06/11: extubated overnight. on NRB this AM. follows commands and answering some questions, but still dyspneic. legionella Ag negative. all cultures still NGTD. Hospitalist Notes: 06/14: Seen in his bedroom and discussed with nurse Miss Connor, complaint of Nausea, but no management for Acute Gastritis is suspected, started on Famotidine and Carafate, giving Electrolyte replacement, continue management by pensions retirement plan specialist and by ID specialist for his Bilateral Lung infiltrates and probable Aspiration Pneumonia. discussed in the room with his Father and Mother. 06/15: Stable in his bedroom discussed with his Father and Mother in the room, had one episode of vomit yesterday night but at this time improving condition. no nausea, vomit or diarrhea. 06/16: Seen in his bedroom in the presence of his Father no complaint, wants to go home, as per PT no need for rehabilitation will continue GERD medicines and follow with Neurology, called Doctor Pedro Meade pensions retirement plan specialist and agree with discharge on Levaquin for five days. Objective Vital Signs Date Time Temp Pulse Resp B/P (MAP) Pulse Ox O2 Delivery O2 Flow Rate FiO2 06/16/17 06:00 56 06/16/17 05:34 14 06/16/17 04:00 47 06/16/17 04:00 98.7 47 18 133/69 (90) 96 06/16/17 02:00 53 06/16/17 00:00 59 06/16/17 00:00 98.6 59 22 149/80 (103) 98 06/15/17 22:00 60 06/15/17 20:00 54 06/15/17 20:00 98.9 54 15 139/86 (103) 97 06/15/17 18:00 50 06/15/17 16:00 57 06/15/17 16:00 99.7 57 23 103/96 (98) 96 06/15/17 14:00 51 06/15/17 12:00 98.8 57 13 149/90 (109) 98 06/15/17 12:00 57 06/15/17 10:00 60 I/O 06/15/17 06/15/17 06/15/17 06/16/17 06/16/17 06/16/17 07:00 15:00 23:00 07:00 15:00 23:00 Intake Total 1205 ml 205 ml 100 ml 480 ml Output Total 550 ml Balance 655 ml 205 ml 100 ml 480 ml Intake Oral 650 ml 480 ml IV Total 555 ml 205 ml 100 ml Output Urine Total 550 ml # Voids 5 3 # Bowel Movements 2 2 Result Diagram: 06/16/17 0604 06/16/17 0604 Imaging Last Impressions Gall Bladder Ultrasound 06/13/17 0000 Signed Impressions: Service Date/Time: Tuesday, June 13, 2017 12:51 - CONCLUSION: 1. Unremarkable ultrasound examination of the abdomen. 2. Right effusion Humza Lindo MD Chest X-Ray 06/12/17 0600 Signed Impressions: Service Date/Time: Monday, June 12, 2017 02:48 - CONCLUSION: No significant change upper lobe predominant diffuse bilateral airspace opacities. Lonnie Horn MD Abdomen X-Ray 06/12/17 0000 Signed Impressions: Service Date/Time: Monday, June 12, 2017 11:28 - CONCLUSION: Unremarkable nonobstructive bowel gas pattern. Raul Quiñones MD Brain MRI 06/10/17 0000 Signed Impressions: Service Date/Time: Saturday, June 10, 2017 09:58 - CONCLUSION: Negative exam. Natalio Solorio MD Lumbar Puncture Fluoroscopy 06/09/17 0000 Signed Impressions: Service Date/Time: May 15:34 - CONCLUSION: Uncomplicated fluoroscopically guided lumbar puncture with pressures as above. Ang Wray MD Head CT 06/08/177 Signed Impressions: Service Date/Time: Thursday, June 08, 2017 23:25 - CONCLUSION: Normal examination. Loki Pitts MD Chest CT 06/08/17 0000 Signed Impressions: Service Date/Time: Thursday, June 08, 2017 23:28 - CONCLUSION: 1. 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 Loki Pitts MD Procedures Endotracheal Intubation and Extubation. Other Results Laboratory Tests Test 06/08/17 22:40 06/08/17 22:41 06/09/17 01:30 06/09/17 07:57 Ammonia 21 MCMOL/L Troponin I LESS THAN 0.02 NG/ML Thyroid Stimulating Hormone 3rd Gen 1.020 uIU/ML Salicylates Level LESS THAN 1.7 MG/DL Acetaminophen Level LESS THAN 2.0 MCG/ML Ethyl Alcohol Level LESS THAN 3 MG/DL Urine Color LIGHT-YELLOW Urine Turbidity CLEAR Urine pH 5.5 Urine Specific [place] 1.016 Urine Protein TRACE mg/dL Urine Glucose (UA) TRACE mg/dL Urine Ketones 10 mg/dL Urine Occult Blood NEG Urine Nitrite NEG Urine Bilirubin NEG Urine Urobilinogen LESS THAN 2.0 MG/DL Urine Leukocyte Esterase NEG Urine RBC LESS THAN 1 /hpf Urine WBC 1 /hpf Urine Mucus FEW /lpf Microscopic Urinalysis Comment CATH-CULT NOT IND Urine Opiates Screen NEG Urine Barbiturates Screen NEG Urine Amphetamines Screen NEG Urine Benzodiazepines Screen NEG Urine Cocaine Screen NEG Urine Cannabinoids Screen POS Nasal Screen MRSA (PCR) MRSA NOT DETECTED Lactic Acid Level 1.9 mmol/L Test 06/09/17 14:33 06/09/17 16:19 06/09/17 17:55 06/10/17 17:00 Prothrombin Time 12.2 SEC Prothromb Time International Ratio 1.1 RATIO Activated Partial Thromboplast Time 32.1 SEC CSF Volume (Tube 1) 4.0 ML CSF Supernatant Color (tube 1) CLEAR CSF Gross Blood (Tube 1) 1+ CSF Volume (Tube 2) 3.5 ML CSF Supernatant Color (tube 2) CLEAR CSF Gross Blood (Tube 2) 1+ CSF Volume (Tube 3) 5.2 ML CSF Supernatant Color (tube 3) CLEAR CSF Gross Blood (Tube 3) 1+ CSF Volume (Tube 4) 5.9 ML CSF Supernatant Color (tube 4) CLEAR CSF Gross Blood (Tube 4) TRACE CSF WBC (Tube 4) 5 /MM3 CSF RBC (Tube 4) 30 /MM3 CSF Neutrophils 3 % CSF Lymphocytes 91 % CSF Monocytes 6 % CSF Glucose 55 MG/DL CSF Lactate Dehydrogenase 10 U/L CSF Total Protein 30.8 MG/DL Lactate Dehydrogenase 254 U/L Blood Smear Pathologist Review Erythrocyte Sedimentation Rate 14 mm/hr Anti-Proteinase 3 (c-ANCA) LESS THAN 1.0 AI Anti-Myeloperoxidase Ab (p-ANCA) LESS THAN 1.0 AI Test 06/10/17 22:45 06/11/17 05:00 06/11/17 05:21 06/12/17 05:15 Blood Gas Ventilator Setting PC/AC Neutrophils (%) (Auto) 78.3 % Lymphocytes (%) (Auto) 12.3 % Monocytes (%) (Auto) 5.8 % Eosinophils (%) (Auto) 3.0 % Basophils (%) (Auto) 0.6 % Neutrophils # (Auto) 7.8 TH/MM3 Lymphocytes # (Auto) 1.2 TH/MM3 Monocytes # (Auto) 0.6 TH/MM3 Eosinophils # (Auto) 0.3 TH/MM3 Basophils # (Auto) 0.1 TH/MM3 CBC Comment DIFF FINAL Blood Gas Puncture Site LT RADIAL Blood Gas Patient Temperature 98.6 Blood Gas HCO3 20 mmol/L Blood Gas Base Excess -4.0 mmol/L Blood Gas Oxygen Saturation 87 % Arterial Blood pH 7.38 Arterial Blood Partial Pressure CO2 35 mmHg Arterial Blood Partial Pressure O2 56 mmHg Arterial Blood Oxygen Content 14.9 Vol % Arterial Blood Carboxyhemoglobin 0.8 % Arterial Blood Methemoglobin 1.1 % Blood Gas Hemoglobin 12.1 G/DL Oxygen Delivery Device NASAL CANNULA Blood Gas Liter Flow 6 L/M Blood Gas Inspired Oxygen 50 % Indirect Bilirubin 0.8 MG/DL Test 06/13/17 06:04 06/13/17 06:33 06/15/17 06:33 06/16/17 06:04 Direct Bilirubin 0.2 MG/DL Lipase 322 U/L Differential Total Cells Counted 100 Neutrophils % (Manual) 72 % Lymphocytes % 12 % Monocytes % 12 % Eosinophils % 4 % Neutrophils # (Manual) 5.3 TH/MM3 Differential Comment FINAL DIFF MANUAL Platelet Estimate NORMAL Platelet Morphology Comment NORMAL Red Cell Morphology Comment NORMAL Blood Urea Nitrogen 7 MG/DL 7 MG/DL 6 MG/DL Creatinine 0.85 MG/DL 0.83 MG/DL 0.96 MG/DL Random Glucose 153 MG/DL 91 MG/DL 103 MG/DL Total Protein 6.9 GM/DL Albumin 3.1 GM/DL Calcium Level 8.8 MG/DL 8.9 MG/DL 8.9 MG/DL Alkaline Phosphatase 50 U/L Aspartate Amino Transf (AST/SGOT) 113 U/L Alanine Aminotransferase (ALT/SGPT) 76 U/L Total Bilirubin 0.7 MG/DL Sodium Level 138 MEQ/L 138 MEQ/L 138 MEQ/L Potassium Level 3.0 MEQ/L 3.3 MEQ/L 3.4 MEQ/L Chloride Level 103 MEQ/L 105 MEQ/L 105 MEQ/L Carbon Dioxide Level 26.7 MEQ/L 21.7 MEQ/L 22.7 MEQ/L Total Creatine Kinase 7811 U/L Creatine Kinase MB 1.2 NG/ML Creatine Kinase MB % 0.0 % Phosphorus Level 3.0 MG/DL Magnesium Level 1.9 MG/DL White Blood Count 7.7 TH/MM3 Red Blood Count 4.45 MIL/MM3 Hemoglobin 13.2 GM/DL Hematocrit 38.1 % Mean Corpuscular Volume 85.6 FL Mean Corpuscular Hemoglobin 29.6 PG Mean Corpuscular Hemoglobin Concent 34.6 % Red Cell Distribution Width 13.1 % Platelet Count 298 TH/MM3 Mean Platelet Volume 8.8 FL Anion Gap 10 MEQ/L Estimat Glomerular Filtration Rate 98 ML/MIN Objective Remarks GENERAL: No acute distress. SKIN: Warm and dry. HEAD: Atraumatic. Normocephalic. EYES: Pupils equal and round. No scleral icterus. No injection or drainage. ENT: No nasal bleeding or discharge. Mucous membranes pink and moist. NECK: Trachea midline. No JVD. CARDIOVASCULAR: Regular rate and rhythm. RESPIRATORY: No accessory muscle use. Clear to auscultation. Breath sounds equal bilaterally. GASTROINTESTINAL: Abdomen soft, non-tender, nondistended. Hepatic and splenic margins not palpable. MUSCULOSKELETAL: Extremities without clubbing, cyanosis, or edema. No obvious deformities. NEUROLOGICAL: Awake and alert. No obvious cranial nerve deficits. Motor grossly within normal limits. Five out of 5 muscle strength in the arms and legs. Normal speech. PSYCHIATRIC: Appropriate mood and affect; insight and judgment normal. Medications and IVs Current Medications Medications (Trade) Dose Ordered Sig/Bebe Route Start Time Stop Time Status Last Admin (NS Flush) 2 ml UNSCH PRN IV FLUSH 06/08/17 23:30 06/14/17 22:05 (NS Flush) 2 ml BID IV FLUSH 06/09/17 09:00 06/16/17 08:19 (Zofran Inj) 4 mg Q6H PRN IV PUSH 06/08/17 23:30 06/16/17 02:42 Miscellaneous Information 1 Q361D XX 06/08/17 23:30 06/08/17 23:30 (Chlorhexidine 2% Cloth) Taper DAILY@04 TOP 06/09/17 04:00 06/05/18 03:59 06/15/17 00:45 (Chlorhexidine 2% Cloth) 3 pack UNSCH PRN TOP 06/08/17 23:30 (Stephanie-Colace) 1 tab BID PO 06/09/17 09:00 06/15/17 21:52 (Milk Of Magnesia Liq) 30 ml Q12H PRN PO 06/08/17 23:30 (Senokot) 17.2 mg Q12H PRN PO 06/08/17 23:30 (Dulcolax Supp) 10 mg DAILY PRN RECTAL 06/08/17 23:30 (Lactulose Liq) 30 ml DAILY PRN PO 06/08/17 23:30 (Peridex 0.12% Liq) 15 ml BID@08,20 MT 06/09/17 08:00 06/12/17 20:00 Levetriacetam 500 mg/Sodium Chloride 105 ml @ 420 mls/hr Q12HR IV 06/09/17 09:00 06/16/17 08:18 (Brethine Inj) 1 mg UNSCH PRN SQ 06/09/17 02:45 (Albuterol Neb) 2.5 mg Q2HR NEB PRN NEB 06/09/17 13:15 06/13/17 20:08 (Tylenol 650 Mg/ 20 ml Liq) 650 mg Q6H PRN NG 06/09/17 13:15 06/16/17 08:18 (Melatonin) 5 mg HS PO 06/10/17 21:00 06/15/17 21:52 Potassium Chloride 100 ml @ 50 mls/hr Q2H PRN IV 06/12/17 02:15 06/12/17 02:56 Potassium Chloride 100 ml @ 50 mls/hr Q2H PRN IV 06/12/17 02:15 06/13/17 23:10 (K-Lyte Cl Eff) 50 meq UNSCH PRN PO 06/12/17 02:15 Potassium Chloride 100 ml @ 25 mls/hr UNSCH PRN IV 06/12/17 02:15 Potassium Chloride 100 ml @ 50 mls/hr Q2H PRN IV 06/12/17 02:15 Magnesium Sulfate 4 gm/Sodium Chloride 100 ml @ 50 mls/hr UNSCH PRN IV 06/12/17 02:15 (Mag-Ox) 800 mg UNSCH PRN PO 06/12/17 02:15 Magnesium Sulfate 2 gm/Sodium Chloride 100 ml @ 50 mls/hr UNSCH PRN IV 06/12/17 02:15 (K-Phos) 2,000 mg Q4H PRN PO 06/12/17 02:15 Sodium Phosphate 30 mmol/Sodium Chloride 250 ml @ 42 mls/hr UNSCH PRN IV 06/12/17 02:15 (K-Phos) 2,000 mg UNSCH PRN PO/TUBE 06/12/17 02:15 Potassium Phosphate 30 mmol/ Sodium Chloride 260 ml @ 42 mls/hr UNSCH PRN IV 06/12/17 02:15 (Phenergan) 25 mg Q6H PRN PO 06/12/17 18:45 06/16/17 08:19 (Phenergan Supp) 25 mg Q4H PRN RECTAL 06/13/17 08:30 06/14/17 08:24 (Carafate Liq) 1 gm ACHS PO 06/14/17 12:00 06/16/17 07:38 (Pepcid Inj) 20 mg Q12HR IV PUSH 06/14/17 10:00 06/16/17 08:18 Potassium Chloride 100 ml @ 100 mls/hr Q1H IV 06/16/17 08:00 06/16/17 10:59 (Levaquin) 750 mg DAILY PO 06/16/17 09:00 A/P Assessment and Plan 1. New Onset of Seizures, THC use, Acute Encephalopathy Improved, on Levetiracetam 500 mg BID, EEG 06/09 encephalopathy no ictal activity CT brain no acute intracranial findings, MRI brain no acute disease, Neurology specialist will follow as outpatient. 2. Hypotension needed for vasopressors likely medication induced Resolved, 2-D echocardiogram: 06/10: LVEF 60%, no RWMA, no valvular lesions. 3. Acute Hypoxic and Hypercarbic respiratory failure Improved was on Mechanical ventilation, Bilateral pulmonary infiltrates on Bronchodilator, Mucolytic, Incentive spirometry, CT thorax revealed crazy wavy pattern PAP, AIP, ARDS included in differential pensions retirement plan specialist doctor Deshaun dior to discharge home. 4. Acute Gastritis. on Famotidine and Carafate. will continue medicines at discharge. 5. Acute Kidney Injury Improved. 6. Aspiration Pneumonia ID and pensions retirement plan specialist following. on Zosyn and Azithromycin. discontinued and will continue Levaquin for five days. 7. Electrolyte derangement replaced Discussed with Patient, Nurse Miss Blair, his Father all questions answered to the best of my abilities Discharge Planning discharge Home Chuy Merlos MD Jun 16, 2017 08:59
[2017-06-16] MEDS ORDERED: LEVOFLOXACIN 750 MG TAB PO SCH (09:00)
[2017-06-16] MEDS ORDERED: POTASSIUM CHLORIDE 20 MEQ CONTROLLED RELEASE TAB PO ONE (09:00)
--- NOTE | 2017-06-16 09:02 | HHI.DS ---
Discharge Summary Admission Date Jun 08, 2017 at 23:39 Discharge Date: Jun 16, 2017 Admitting Diagnosis (1) Aspiration pneumonia ICD Code: J69.0 - Pneumonitis due to inhalation of food and vomit Diagnosis: Principal (2) ARDS (adult respiratory distress syndrome) ICD Code: J80 - Acute respiratory distress syndrome Diagnosis: Principal Status: Acute (3) Hemoptysis ICD Code: R04.2 - Hemoptysis Diagnosis: Principal Status: Acute (4) Respiratory failure ICD Code: J96.90 - Respiratory failure, unspecified, unspecified whether with hypoxia or hypercapnia Diagnosis: Principal Status: Acute (5) Seizure ICD Code: R56.9 - Unspecified convulsions Diagnosis: Principal Procedures Endotracheal Intubation and Extubation. Brief History - From Admission 21-year-old presents by EMS from home. Patient was seen in the emergency room a few hours ago for seizure. Apparently does not have history of seizure even though after further conversation with the patient's mother he had episode of seizures a year ago when he was experimenting with alprazolam as a recreational supplement. He had a workup done and was discharged home. Per family when he got home after discharge he was complaining of chest congestion and shortness of breath that was progressively getting worse. His girlfriend who was with him noticed that he had another episode of seizure that lasted for 3 minutes. She called EMS. As per paramedics when they arrived he was confused and postictal. They took him into the ambulance and he started vomiting blood ? . however NG tube placed in the ED didn't reveal any blood or coffee-ground content in the stomach. Patient was slightly tachycardic but blood pressure stable. They said his GCS was 15 on route. When patient arrived to the ER he was confused and GCS was 14. He was hemodynamically stable. His oxygen saturation was 80% on nonrebreather. As per EMS they noticed that his oxygen saturation was in mid 70s on room air when they first put him on a monitor. As I was talking to the paramedics patient started to cough up blood. He was intubated for progressively worsening respiratory distress and hypoxemia by ED attending. CBC/BMP: 06/16/17 0604 06/16/17 0604 Significant Findings Laboratory Tests Test 06/14/17 07:00 06/15/17 06:33 06/16/17 06:04 Red Blood Count 4.44 MIL/MM3 (4.50-5.90) 4.48 MIL/MM3 (4.50-5.90) 4.45 MIL/MM3 (4.50-5.90) Hematocrit 38.1 % (39.0-51.0) 38.0 % (39.0-51.0) 38.1 % (39.0-51.0) Random Glucose 122 MG/DL (74-106) Potassium Level 3.4 MEQ/L (3.5-5.1) 3.3 MEQ/L (3.5-5.1) 3.4 MEQ/L (3.5-5.1) Blood Urea Nitrogen 6 MG/DL (7-18) Imaging Last Impressions Gall Bladder Ultrasound 06/13/17 0000 Signed Impressions: Service Date/Time: Tuesday, June 13, 2017 12:51 - CONCLUSION: 1. Unremarkable ultrasound examination of the abdomen. 2. Right effusion Humza Lindo MD Chest X-Ray 06/12/17 0600 Signed Impressions: Service Date/Time: Monday, June 12, 2017 02:48 - CONCLUSION: No significant change upper lobe predominant diffuse bilateral airspace opacities. Lonnie Horn MD Abdomen X-Ray 06/12/17 0000 Signed Impressions: Service Date/Time: Monday, June 12, 2017 11:28 - CONCLUSION: Unremarkable nonobstructive bowel gas pattern. Raul Quiñones MD Brain MRI 06/10/17 0000 Signed Impressions: Service Date/Time: Saturday, June 10, 2017 09:58 - CONCLUSION: Negative exam. Natalio Solorio MD Lumbar Puncture Fluoroscopy 06/09/17 0000 Signed Impressions: Service Date/Time: May 15:34 - CONCLUSION: Uncomplicated fluoroscopically guided lumbar puncture with pressures as above. Ang Wray MD Head CT 06/08/[id number] Signed Impressions: Service Date/Time: Thursday, June 08, 2017 23:25 - CONCLUSION: Normal examination. Loki Pitts MD Chest CT 06/08/17 0000 Signed Impressions: Service Date/Time: Thursday, June 08, 2017 23:28 - CONCLUSION: 1. 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 Loki Pitts MD PE at Discharge GENERAL: No acute distress. SKIN: Warm and dry. HEAD: Atraumatic. Normocephalic. EYES: Pupils equal and round. No scleral icterus. No injection or drainage. ENT: No nasal bleeding or discharge. Mucous membranes pink and moist. NECK: Trachea midline. No JVD. CARDIOVASCULAR: Regular rate and rhythm. RESPIRATORY: No accessory muscle use. Clear to auscultation. Breath sounds equal bilaterally. GASTROINTESTINAL: Abdomen soft, non-tender, nondistended. Hepatic and splenic margins not palpable. MUSCULOSKELETAL: Extremities without clubbing, cyanosis, or edema. No obvious deformities. NEUROLOGICAL: Awake and alert. No obvious cranial nerve deficits. Motor grossly within normal limits. Five out of 5 muscle strength in the arms and legs. Normal speech. PSYCHIATRIC: Appropriate mood and affect; insight and judgment normal. Hospital Course relocation services specialist Notes: 21-year-old presents by EMS from home. Patient was seen in the emergency room a few hours ago for seizure. Apparently does not have history of seizure even though after further conversation with the patient's mother he had episode of seizures a year ago when he was experimenting with alprazolam as a recreational supplement. He had a workup done and was discharged home. Per family when he got home after discharge he was complaining of chest congestion and shortness of breath that was progressively getting worse. His girlfriend who was with him noticed that he had another episode of seizure that lasted for 3 minutes. She called EMS. As per paramedics when they arrived he was confused and postictal. They took him into the ambulance and he started vomiting blood ? . however NG tube placed in the ED didn't reveal any blood or coffee-ground content in the stomach. Patient was slightly tachycardic but blood pressure stable. They said his GCS was 15 on route. When patient arrived to the ER he was confused and GCS was 14. He was hemodynamically stable. His oxygen saturation was 80% on nonrebreather. As per EMS they noticed that his oxygen saturation was in mid 70s on room air when they first put him on a monitor. As I was talking to the paramedics patient started to cough up blood. He was intubated for progressively worsening respiratory distress and hypoxemia by ED attending. 06/09: Remains on multiple sedation medications and dopamine. CT brain no acute findings. MRI brain ordered. EEG showed medication induced encephalopathy. 06/10: encephalopathy persists. on lightening of sedation, becomes very agitated. does withdraw to pain, and is purposeful, but not following commands. MRI brain wnl. I had a long discussion with the family where I re-confirmed no international travel. He did spend 1 summer in [place] on a farm, and they did note that the farm had bats. Otherwise, he was in his complete and full state of health up until the day of admission. he works out daily and had no problems going to the gym the day before presentation. no other associated recent symptoms. parents do say he gets stomach aches when he eats "lots of gluten" so he tries to avoid it when he can. they say he alternates between a "ketogenic"-type diet (although does not adhere strictly to this), and an Adkin' s-type diet. He does eat occasional carbs, but rarely. 06/11: extubated overnight. on NRB this AM. follows commands and answering some questions, but still dyspneic. legionella Ag negative. all cultures still NGTD. Hospitalist Notes: 06/14: Seen in his bedroom and discussed with nurse Miss Connor, complaint of Nausea, but no management for Acute Gastritis is suspected, started on Famotidine and Carafate, giving Electrolyte replacement, continue management by process improvement specialist and by ID specialist for his Bilateral Lung infiltrates and probable Aspiration Pneumonia. discussed in the room with his Father and Mother. 06/15: Stable in his bedroom discussed with his Father and Mother in the room, had one episode of vomit yesterday night but at this time improving condition. no nausea, vomit or diarrhea. 06/16: Seen in his bedroom in the presence of his Father no complaint, wants to go home, as per PT no need for rehabilitation will continue GERD medicines and follow with Neurology, called Doctor Pedro Meade process improvement specialist and agree with discharge on Levaquin for five days. Assessment and Plan 1. New Onset of Seizures, THC use, Acute Encephalopathy Improved, on Levetiracetam 500 mg BID, EEG 06/09 encephalopathy no ictal activity CT brain no acute intracranial findings, MRI brain no acute disease, Neurology specialist will follow as outpatient. 2. Hypotension needed for vasopressors likely medication induced Resolved, 2-D echocardiogram: 06/10: LVEF 60%, no RWMA, no valvular lesions. 3. Acute Hypoxic and Hypercarbic respiratory failure Improved was on Mechanical ventilation, Bilateral pulmonary infiltrates on Bronchodilator, Mucolytic, Incentive spirometry, CT thorax revealed crazy wavy pattern PAP, AIP, ARDS included in differential process improvement specialist doctor Deshaun dior to discharge home. 4. Acute Gastritis. on Famotidine and Carafate. will continue medicines at discharge. 5. Acute Kidney Injury Improved. 6. Aspiration Pneumonia ID and process improvement specialist following. on Zosyn and Azithromycin. discontinued and will continue Levaquin for five days. 7. Electrolyte derangement replaced Discussed with Patient, Nurse Miss Blair, his Father all questions answered to the best of my abilities Discharge Planning discharge Home Pt Condition on Discharge: Good Discharge Disposition: Discharge Home Discharge Time: > 30 minutes Discharge Instructions DIET: Follow Instructions for: As Tolerated, No Restrictions Activities you can perform: Regular-No Restrictions Chuy Merlos MD Jun 16, 2017 09:02
[2017-06-17 18:53] LABS: HISTOPLASMA ANTIGEN UR RESULT Indeterminate (Negative); HISTOPLASMA ANTIGEN UR VALUE 0.13 ng/mL
[2017-06-20 13:22] LABS: C PNEUMO IGM <1:10 (<1:10); C. PNEUMONIAE IGA <1:16 (<1:16); C. PNEUMONIAE IGG <1:64; C. TRACHOMATIC IGM <1:10 (<1:10); C. TRACHOMATIS IGA <1:16 (<1:16); C. TRACHOMATIS IGG <1:64 (<1:64)
[2017-06-20 13:23] LABS: C. PSITTACI IGA <1:16 (<1:16); C. PSITTACI IGG <1:64 (<1:64); C. PSITTACI IGM <1:10 (<1:10)
--- NOTE | 2017-06-21 03:16 | PD.PROCEDR ---
Procedure Note Procedure Procedure : Bronchoscopy Procedure date: 06/09/2017 Time of procedure: 2 AM The bronchoscope was advanced through the ETT into akira, which was sharp. Then advanced into the left main stem and each segment, subsegement in the left upper lingula and lower lobe was visualized. There was mild tracheobronchitis with mild friability throughout. There was modest amounts of pink frothy secretion. There were no other findings including evidence of mass, anatomic distortions, or hemorrhage. The right upper lobe anatomy showed some segmental distortion with dilation and irregularities both at the apical region as well as in the subsegments of the anteroapical and posterior segments. No specific masses or other lesions were identified throughout the tracheobronchial tree on the right. There was mild tracheal bronchitis with friability. Upon coughing, there was punctate hemorrhage. The bronchoscope was then advanced through the bronchus intermedius and the right middle lobe and right lower lobe. These again had no other anatomic lesions identified. The bronchoscope was then wedged in the right middle lobe and bronchoalveolar samples were obtained. The bronchoscope was withdrawn and the area was suctioned clear. The bronchoscope was then advanced into the apical segment of the right upper lobe and the bronchioalveolar lavage again performed. Samples were taken and the bronchoscope was removed suctioned the area clear. The bronchoscope was then withdrawn. The patient tolerated the procedure well without evidence of desaturation or complications. Roger Haynes MD Jun 21, 2017 03:16
== END 2017-06-16 10:45 | disposition home or self-care (01) | DRG 166 ==
LOC: NEPE 22:09 → NEDA 23:39 → HIMN 06-09 01:10
PROVIDERS: ADMIT Internal Medicine; ATTEND Internal Medicine
PROC: 5A1945Z Respiratory Ventilation, 24-96 Consecutive Hours (ICD-10-PCS; 2017-06-08)
PROC: 0BH17EZ Insertion of Endotracheal Airway into Trachea, Via Natural or Artificial Opening (ICD-10-PCS; 2017-06-08)
PROC: 0B9D8ZX Drainage of Right Middle Lung Lobe, Via Natural or Artificial Opening Endoscopic, Diagnostic (ICD-10-PCS; principal; 2017-06-09)
PROC: 0B9C8ZX Drainage of Right Upper Lung Lobe, Via Natural or Artificial Opening Endoscopic, Diagnostic (ICD-10-PCS; 2017-06-09)
PROC: 009U3ZX Drainage of Spinal Canal, Percutaneous Approach, Diagnostic (ICD-10-PCS; 2017-06-09)
PROC: B01BZZZ Fluoroscopy of Spinal Cord (ICD-10-PCS; 2017-06-09)
PROC: 02HV33Z Insertion of Infusion Device into Superior Vena Cava, Percutaneous Approach (ICD-10-PCS; 2017-06-09)
DX: J69.0 Pneumonitis due to inhalation of food and vomit (principal); J96.01 Acute respiratory failure with hypoxia; G92 Toxic encephalopathy; J96.02 Acute respiratory failure with hypercapnia; Z99.11 Dependence on respirator [ventilator] status; K92.0 Hematemesis; N17.9 Acute kidney failure, unspecified; E87.2 Acidosis; R04.2 Hemoptysis; R13.10 Dysphagia, unspecified; E86.0 Dehydration; G40.909 Epilepsy, unspecified, not intractable, without status epilepticus; R74.8 Abnormal levels of other serum enzymes; F12.90 Cannabis use, unspecified, uncomplicated; I95.2 Hypotension due to drugs; K29.00 Acute gastritis without bleeding; T50.905A Adverse effect of unspecified drugs, medicaments and biological substances, initial encounter
CPT/HCPCS: 31500; 31624; 36556; 36600; 43753; 51702; 62270; 70450; 70551; 71010; 71250; 74000; 76705; 77003; 80048; 80053; 80076; 80307; 81001; 82140; 82248; 82550; 82552; 82805; 82945; 83605; 83615; 83690; 83735; 84100; 84132; 84157; 84443; 84484; 85007; 85025; 85027; 85060; 85610; 85652; 85730; 86021; 86403; 86631; 86632; 86850; 86900; 86901; 87015; 87040; 87070; 87086; 87102; 87116; 87205; 87206; 87385; 87449; 87529; 87641; 89051; 93005; 93306; 94002; 94003; 94150; 94640; 94664; 94667; 94668; 95819; 96365; 96375; 96376; 99292; C9113; J0330; J0456; J1953; J2250; J2270; J2405; J2543; J3010; J3475; J3480; J7030; J7050; J7070; J7613; Q0169

== ENCOUNTER 2017-08-13 06:08 | Emergency (ER) | payer OTHER ==
[~2017-08-13 06:08] MED LIST: CARA1TAB6 PO; FAMO20TA2 PO; LEVA750T9 PO; LEVE500 PO; PROM25TA10 PO
[2017-08-13 06:09] VITALS: BP 122/69; PULSE 98; RESP 18; TEMP 98; O2SAT 97
[2017-08-13] MEDS ORDERED: levETIRAcetam INJ 100 ML IV ONE (06:15)
--- NOTE | 2017-08-13 06:21 | PD ---
HPI Chief Complaint: Seizure Time Seen by Provider: 06:12 Travel History International Travel<30 days: No Contact w/Intl Traveler<30days: No Traveled to known affect area: No History of Present Illness HPI 21-year-old male was for him EMS for seizure. Patient has several episodes of seizure this morning. The seizure episodes were described as generalized tonic- clonic. Patient has history of seizure and was on Keppra 500 mg twice a day. Patient stopped taking Keppra about month ago. Patient denies any illicit drug abuse. Patient denies alcohol abuse. Patient denies any injury during the seizure episodes. Patient denies any headache. Patient denies any neck pain. Patient denies any chest pain or shortness of breath. Patient denies abdominal pain. Patient denies any focal weakness or numbness of extremity. PFSH Past Medical History Diminished Hearing: No Neurologic: Yes (PT STATES THAT HE HAS HAD 1 SEIZURE IN PAST) Social History Alcohol Use: Yes (OCCASIONAL) Tobacco Use: No Substance Use: Yes (thc) Allergies-Medications (Allergen,Severity, Reaction): Coded Allergies: No Known Allergies (Unverified , 06/08/17) Reported Meds & Prescriptions Reported Meds & Active Scripts Active No Active Prescriptions or Reported Medications Review of Systems General / Constitutional: No: Fever Eyes: No: Visual changes HENT: No: Headaches Cardiovascular: No: Chest Pain or Discomfort Respiratory: No: Shortness of Breath Gastrointestinal: No: Abdominal Pain Genitourinary: No: Dysuria Musculoskeletal: No: Pain Skin: No Rash Neurologic: No: Weakness Psychiatric: No: Depression Endocrine: No: Polydipsia Hematologic/Lymphatic: No: Easy Bruising Physical Exam Narrative GENERAL: Well-nourished, well-developed patient. SKIN: Focused skin assessment warm/dry. HEAD: Normocephalic. EYES: No scleral icterus. No injection or drainage. NECK: Supple, trachea midline. No JVD or lymphadenopathy. CARDIOVASCULAR: Regular rate and rhythm without murmurs, gallops, or rubs. RESPIRATORY: Breath sounds equal bilaterally. No accessory muscle use. GASTROINTESTINAL: Abdomen soft, non-tender, nondistended. MUSCULOSKELETAL: No cyanosis, or edema. BACK: Nontender without obvious deformity. No CVA tenderness. Neurologic exam normal. Data Data Last Documented VS Vital Signs Date Time Temp Pulse Resp B/P (MAP) Pulse Ox O2 Delivery O2 Flow Rate FiO2 12/30/17 06:17 95 15 98 Room Air 08/13/17 06:09 98.0 122/69 (86) Orders Orders Levetiracetam Inj (Keppra Inj) (08/13/17 06:15) Ed Discharge Order (08/13/17 06:41) MDM Medical Decision Making Medical Screen Exam Complete: Yes Emergency Medical Condition: Yes Differential Diagnosis Differential diagnosis including breakthrough seizures, noncompliant. Narrative Course 21-year-old male with seizure. History of seizure in the past. Patient stopped taking Keppra about month ago. Keppra 1 g IV given. Diagnosis Primary Impression: Breakthrough seizure Patient Instructions: General Instructions Additional Instructions: Advised patient to take Keppra as directed. Follow-up with personal physician and neurologist. Return as needed. Med/Other Pt SpecificInfo: Prescription(s) given Scripts Levetiracetam (Keppra) 500 Mg Tab 500 MG PO BID for Control Seizures, #60 TAB 0 Refills Prov: Eric Friedman MD 08/13/17 Disposition: 01 DISCHARGE HOME Condition: Stable Eric Friedman MD Aug 13, 2017 06:21
[2017-08-13] MEDS ORDERED: LEVE500 PO (06:53)
[2017-08-13 07:11] VITALS: BP 121/66
== END 2017-08-13 07:13 | disposition home or self-care (01) ==
LOC: NEPE 06:08
DX: R56.9 Unspecified convulsions (principal)
CPT/HCPCS: 96365; 99283; J1953